=== PATIENT | male | born 1945 | race Caucasian/White ===

== ENCOUNTER 2017-07-25 12:21 | Inpatient (IN) ==
[2017-07-25] MEDS ORDERED: 0.9 % Sodium Chloride 1,000 ML IVC ONE (12:38)
[2017-07-25 13:02] LABS: Basophils % 0.6 %; Eosinophils # 0.1 K/mcL (0.0-0.6); Eosinophils % 1.1 %; Hematocrit 41.2 % (37.5-50.1); Hemoglobin 13.9 g/dL (12.9-16.9); Immature Granulocytes % 0.3 % (0-4); Lymphocytes # 1.9 K/mcL (0.6-4.6); Mean Corpuscular HGB Conc 33.7 g/dL (31.6-35.5); Mean Corpuscular Hemoglobin 32.4 pg (28.0-33.3); Mean Platelet Volume 9.5 fL (9.4-12.4); Monocytes # 0.5 K/mcL (0.0-1.3); Monocytes % 8.7 %; Neutrophils # 3.7 K/mcL (1.6-8.9); Platelet Count 193 K/mcL (140-400); Red Blood Count 4.29 M/mcL (4.19-5.50); Segmented Neutrophils % 59.3 %
[2017-07-25 13:09] LABS: INR 1.2; Prothrombin Time 12.7 Seconds (9.4-12.1)
--- NOTE | 2017-07-25 13:12 | Emergency Department Note ---
START Narrative - START START: I examined this patient and my medical decision-making was reviewed with the Resident Physician. I agree with the documented findings, disposition and treatment plan as described except to the extent set forth below. 72 yaer old male wiht HX of copd and asthma and skin cacner presents to the ED with complaints of productive cough and generalized weakness without fever. He has not been around any other sick individuls with simliar sumptoms. PAtient state that he also has a pacemaker and has been feeling lightheaded recently. Brent will have a genrealized weakness wokup ruling out primary pulmonary pathology i.e. pnuemoina and likely be admitted to medicine today.
--- NOTE | 2017-07-25 13:17 | Emergency Department Note ---
Disposition Clinical Impression: Splenic artery aneurysm COPD (chronic obstructive pulmonary disease) Qualifiers: Emphysema type: unspecified Qualified Code(s): J43.9 - CHF (congestive heart failure) Qualifiers: Congestive heart failure chronicity: unspecified congestive heart failure chronicity Qualified Code(s): I50.9 - Disposition: Admitted As Inpatient Condition: Fair General Adult HPI - General Chief complaint: ED Dizziness Stated complaint: "feel bad, dizzy" Time Seen by Provider: 07/25/17 12:28 Source: patient Mode of arrival: ambulatory Limitations: no limitations Nursing Notes Reviewed: Yes Vital Signs Reviewed: Yes - History of Present Illness HPI Narrative: Patient presenting to the ED with a 3 week history of generalized weakness, fatigue, decreased appetite, abdominal distention and pain, nausea. States he just does not feel well and is been slowly declining. Denies any chest pain or shortness of breath. No headache or fever. States that he feels very lightheaded like he is going to pass out at times. Does have some nausea and states he has not been having bowel movements like usual, but he has also not been eating. Pain Scale: 0 - Related Data Home Medications Medication Instructions Recorded Confirmed Albuterol Sulfate [Proair HFA] 1 - 2 puff IH Q4HR PRN 06/26/15 07/25/17 Acetaminophen/Diphenhydramine 1 tab PO HS PRN 07/25/17 07/25/17 [Acetaminophen Pm Caplet] Albuterol Neb [Proventil Neb] 2.5 mg IH TID PRN 07/25/17 07/25/17 Aspirin [Lo-Dose Aspirin EC] 81 mg PO DAILY 07/25/17 07/25/17 Chlordiazepoxide [Librium] 25 mg PO TID 07/25/17 07/25/17 Diclofenac Sodium [Voltaren] 50 mg PO Q8HR 07/25/17 07/25/17 Metoprolol Tartrate [Lopressor] 50 mg PO BID 07/25/17 07/25/17 Allergies Allergy/AdvReac Type Severity Reaction Status Date / Time rivaroxaban [From Xarelto] AdvReac See Verified 07/25/17 15:45 Comments All systems ED: reviewed and negative except as stated. Constitutional: Reports: weight change, other (Decreased appetite). Denies: fever Cardiovascular: Reports: syncope (Near). Denies: chest pain Gastrointestinal: Reports: nausea, constipation Musculoskeletal: Denies: back pain Neurological: Denies: headache Past Medical History - Past Medical History Attestation: Yes The following information was validated with the patient. Source: patient Medical history: Reports: asthma, COPD, hyperlipidemia, hypertension, other Surgical history: Reports: appendectomy, cholecystectomy, pacemaker/AICD Psychiatric history: Reports: no psych history - Social History Smoking Status: Former smoker Smokeless Tobacco Status: No Alcohol use: Reports: none Drug use: Reports: none Physical Exam - General Limitations: no limitations General appearance: alert, in no apparent distress - Head Head exam: atraumatic, normocephalic, normal inspection - Eye Eye exam: Present: normal appearance, PERRL, EOMI - Chest Chest inspection: Present: normal inspection, symmetric chest wall rise - Respiratory Respiratory exam: Present: normal lung sounds bilaterally - Cardiovascular Cardiovascular exam: Present: regular rate, normal rhythm, normal heart sounds - Abdominal Exam Abdominal exam: Present: soft, Non-Tender, distention. Absent: tenderness, guarding, rebound, rigidity - Extremities Exam Extremities exam: Present: normal inspection, full ROM. Absent: tenderness - Neurological Exam Neurological exam: Present: alert, oriented X3 - Psychiatric Psychiatric exam: Present: depressed, flat affect - Skin Skin exam: Present: warm, dry, intact, normal color Course Course Narrative: Patient presenting with abdominal fullness, decreased appetite, constipation. We will check labs and likely admit Vital Signs Temperature 97.6 F 07/25/17 12:24 Pulse Rate 81 07/25/17 12:24 Respiratory Rate 20 07/25/17 12:24 Blood Pressure 171/118 07/25/17 12:24 O2 Sat by Pulse Oximetry 94 07/25/17 12:24 Temperature 97.6 F 07/25/17 17:12 Pulse Rate 66 07/25/17 17:12 Respiratory Rate 16 07/25/17 17:12 Blood Pressure 181/104 07/25/17 17:12 O2 Sat by Pulse Oximetry 91 07/25/17 17:12 Oxygen Delivery Oxygen Delivery Room Air Medical Decision Making - Medical Records Medical records reviewed: Yes I reviewed the patient's medical records. - Lab Data Lab results reviewed: Yes I reviewed the patient's lab results. Result diagrams: 07/25/17 12:55 07/25/17 12:55 Lab Results 07/25/17 07/25/17 07/25/17 Range/Units 12:55 12:55 12:55 WBC 6.2 (4.3-11.1) K/mcL RBC 4.29 (4.19-5.50) M/mcL Hgb 13.9 (12.9-16.9) g/dL Hct 41.2 (37.5-50.1) % MCV 96.0 (83.0-100.0) fL MCH 32.4 (28.0-33.3) pg MCHC 33.7 (31.6-35.5) g/dL RDW 14.0 (11.5-14.5) % Plt Count 193 (140-400) K/mcL MPV 9.5 (9.4-12.4) fL Immature Gran % 0.3 (0-4) % Seg Neutrophils % 59.3 % Lymphocytes % 30.0 % Monocytes % 8.7 % Eosinophils % 1.1 % Basophils % 0.6 % Neutrophils # 3.7 (1.6-8.9) K/mcL Lymphocytes # 1.9 (0.6-4.6) K/mcL Monocytes # 0.5 (0.0-1.3) K/mcL Eosinophils # 0.1 (0.0-0.6) K/mcL Basophils # 0.0 (0.0-0.2) K/mcL PT 12.7 H (9.4-12.1) Seconds INR 1.2 Sodium 138 (136-145) mEq/L Potassium 4.3 (3.5-4.5) mEq/L Chloride 107 (98-109) mEq/L Carbon Dioxide 25 (19-29) mEq/L BUN 20 (8-26) mg/dL Creatinine 1.09 (0.72-1.25) mg/dL Est GFR ( Amer) > 60 (> 60) Est GFR (Non-Af Amer) > 60 (> 60) BUN/Creatinine Ratio 18 (6-26) Glucose 104 H (70-99) mg/dL Calculated Osmolality 289 (280-300) Calcium 9.2 (8.6-10.8) mg/dL Total Bilirubin 0.8 (0.2-1.2) mg/dL AST 43 H (5-34) Units/L ALT 89 H (0-55) Units/L Alkaline Phosphatase 90 (38-126) Units/L Troponin I (0-0.03) ng/mL B-Natriuretic Peptide (0-100) pg/mL Serum Total Protein 6.5 (6.0-8.3) g/dL Albumin 3.5 (3.5-5.0) g/dL Globulin 3.0 (2.4-3.5) g/dL Albumin/Globulin Ratio 1.2 (1.1-2.2) Lipase 15 (8-78) Units/L Urine Color (Yellow) Urine Clarity (Clear) Urine pH (5.0-8.0) pH Units Ur Specific [place] (1.010-1.025) Urine Protein (Neg-Trace) mg/dL Urine Glucose (UA) (Normal) mg/dL Urine Ketones (Negative) mg/dL Urine Blood (Negative) Urine Nitrite (Negative) Urine Bilirubin (Negative) Urine Urobilinogen (Normal) mg/dL Ur Leukocyte Esterase (Negative) Ur Culture Indicated? (NO) 07/25/17 07/25/17 07/25/17 Range/Units 12:55 12:55 13:27 WBC (4.3-11.1) K/mcL RBC (4.19-5.50) M/mcL Hgb (12.9-16.9) g/dL Hct (37.5-50.1) % MCV (83.0-100.0) fL MCH (28.0-33.3) pg MCHC (31.6-35.5) g/dL RDW (11.5-14.5) % Plt Count (140-400) K/mcL MPV (9.4-12.4) fL Immature Gran % (0-4) % Seg Neutrophils % % Lymphocytes % % Monocytes % % Eosinophils % % Basophils % % Neutrophils # (1.6-8.9) K/mcL Lymphocytes # (0.6-4.6) K/mcL Monocytes # (0.0-1.3) K/mcL Eosinophils # (0.0-0.6) K/mcL Basophils # (0.0-0.2) K/mcL PT (9.4-12.1) Seconds INR Sodium (136-145) mEq/L Potassium (3.5-4.5) mEq/L Chloride (98-109) mEq/L Carbon Dioxide (19-29) mEq/L BUN (8-26) mg/dL Creatinine (0.72-1.25) mg/dL Est GFR ( Amer) (> 60) Est GFR (Non-Af Amer) (> 60) BUN/Creatinine Ratio (6-26) Glucose (70-99) mg/dL Calculated Osmolality (280-300) Calcium (8.6-10.8) mg/dL Total Bilirubin (0.2-1.2) mg/dL AST (5-34) Units/L ALT (0-55) Units/L Alkaline Phosphatase (38-126) Units/L Troponin I 0.02 (0-0.03) ng/mL B-Natriuretic Peptide 693 H (0-100) pg/mL Serum Total Protein (6.0-8.3) g/dL Albumin (3.5-5.0) g/dL Globulin (2.4-3.5) g/dL Albumin/Globulin Ratio (1.1-2.2) Lipase (8-78) Units/L Urine Color Yellow (Yellow) Urine Clarity Clear (Clear) Urine pH 7.0 (5.0-8.0) pH Units Ur Specific [place] 1.011 (1.010-1.025) Urine Protein Negative (Neg-Trace) mg/dL Urine Glucose (UA) Normal (Normal) mg/dL Urine Ketones Negative (Negative) mg/dL Urine Blood Negative (Negative) Urine Nitrite Negative (Negative) Urine Bilirubin Negative (Negative) Urine Urobilinogen Normal (Normal) mg/dL Ur Leukocyte Esterase Negative (Negative) Ur Culture Indicated? NO (NO) - Radiology Data Radiology results reviewed: Yes I reviewed the patient's radiology results. - EKG Data EKG #1 EKG attestation: Yes I reviewed and interpreted this EKG. EKG results narrative: Paced rhythm, rate 80,. Will to 18, QRS 185, QTC 490, no acute ischemic changes
[2017-07-25 13:18] LABS: Alanine Aminotransferase 89 Units/L (0-55); Albumin 3.5 g/dL (3.5-5.0); Albumin/Globulin Ratio 1.2 (1.1-2.2); Alkaline Phosphatase 90 Units/L (38-126); Aspartate Amino Transferase 43 Units/L (5-34); BUN/Creatinine Ratio 18 (6-26); Bilirubin,Total 0.8 mg/dL (0.2-1.2); Blood Urea Nitrogen 20 mg/dL (8-26); Calcium 9.2 mg/dL (8.6-10.8); Carbon Dioxide 25 mEq/L (19-29); Chloride 107 mEq/L (98-109); Glucose 104 mg/dL (70-99); Lipase 15 Units/L (8-78); Osmolality,Calculated 289 (280-300); Potassium 4.3 mEq/L (3.5-4.5); Sodium 138 mEq/L (136-145); Total Protein 6.5 g/dL (6.0-8.3); eGFR For African Americans > 60 (> 60); eGFR For Non-African Americans > 60 (> 60)
[2017-07-25 13:35] LABS: Bilirubin,Urine Negative (Negative); Blood,Urine Negative (Negative); Clarity,Urine Clear (Clear); Color,Urine Yellow (Yellow); Glucose,Urine (UA) Normal (Normal); Ketones,Urine Negative (Negative); Leukocyte Esterase,Urine Negative (Negative); Nitrite,Urine Negative (Negative); Protein,Urine Negative (Neg-Trace); Specific Gravity,Urine 1.011 (1.010-1.025); Urobilinogen,Urine Normal (Normal)
[2017-07-25] MEDS ORDERED: Furosemide 40 MG/4 ML VIAL IVP ONE (14:27)
[2017-07-25] MEDS ORDERED: Naloxone 0.4 MG/ML INJ IVP PRN (16:59)
[2017-07-25] MEDS ORDERED: Albuterol 2.5 MG/3 ML NEBULIZER IH PRN (17:07)
[2017-07-25] MEDS ORDERED: ACETAMINOPHEN PO PRN (17:07)
[2017-07-25] MEDS ORDERED: DIPHENHYDRAMINE PO PRN (17:07)
--- NOTE | 2017-07-25 17:29 | Internal Med History&Physical ---
<Santiago Murry J - Last Filed: 07/25/17 17:46> Date of Encounter: 07/25/17 Time of Encounter: 17:26 Assessment and Plan (1) CHF (congestive heart failure) Current visit: Yes Status: Acute New onset of heart failure. Admit as inpatient as the patient will likely need a hospital stay longer than 2 midnights; requires closer monitoring of electrolytes d/t diuretics for CHF Increasing shortness of breath over the last few weeks, +1 BLE pitting edema BNP 693. Continue home antihypertensives No prior echocardiogram. Unclear whether or not systolic vs diastolic. Suspect diastolic d/t diastolic HTN Echocardiogram now Serial troponins Continuous telemetry, continuous O2 monitoring Lasix 40 mg IV push twice a day Strict I's and O's, daily weight CBC, CMP, BNP in the morning Qualifiers: Congestive heart failure chronicity: unspecified congestive heart failure chronicity Qualified Code(s): I50.9 - Heart failure, unspecified (2) COPD (chronic obstructive pulmonary disease) Current visit: Yes Status: Acute Stable, no wheezing. Continue albuterol Qualifiers: Emphysema type: unspecified Qualified Code(s): J43.9 - Emphysema, unspecified (3) HTN (hypertension) Current visit: Yes Status: Acute H/o HTN, BP currently elevated. SBP's 190's this afternoon in ED Responded to hydralazine, now SBP 150's Resume BB, add hydralazine for SBP greater than 160 Qualifiers: Hypertension type: essential hypertension Qualified Code(s): I10 - Essential (primary) hypertension (4) Splenic artery aneurysm Current visit: Yes Status: Acute Incidental findings of splenic artery aneurysm. Patient denies any abdominal pain, is hemodynamically stable. Aneurysm measured 1.[address] Squires from surgical team for further recommendations. Recommended watchful waiting as it is not emergent and the patient is currently stable. Daily smoker, cessation couseling provided d/t increased risk with smoking (5) Tobacco abuse Current visit: Yes Status: Acute Patient reports he is an everyday smoker, smoking approximately 10 cigarettes per day. Cessation counseling provided (6) DVT prophylaxis Current visit: Yes Status: Acute Heparin SC 5000 units Q12HRS Internal Medicine - H&P: HPI Chief complaint: Generalized weakness, acute CHF Admitted From: Home Plans for Post Hospital Care: Home History of present illness: Mr. Stafford is a 72 year old male with a PMH of asthma, COPD, HLD, HTN, and pacer AICD. She presents today for history of sob, generalized fatigue, decreased appetite, dyspepsia and lightheadedness. He reports that he has been very fatigued lately has had increasing shortness of breath, bilateral lower extremity swelling. Denies any chest pain, diaphoresis, syncope, fever, chills , nausea vomiting and diarrhea. His only cardiac history is hypertension and heart block. He denies ever being diagnosed with congestive heart failure. Workup in the ED revealed BNP of 693. Past Med Surg Social Fam HX - Past Medical History Medical history: asthma, COPD, hyperlipidemia, hypertension, other Psychiatric history: no psych history - Past Surgical History Surgical History: appendectomy, cholecystectomy, pacemaker/AICD - Social History Smoking Status: Former smoker Smokeless Tobacco Status: No Alcohol use: none Drug use: none - Family History Mother Hx Family Neurologic Disorders: Yes (CVA) Father Hx Family Cancer: Yes (Stomach) Brother Hx Family Cancer: Yes (Leukemia) Sister Hx Family Cancer: Yes (Pancreatic) Internal Medicine - H&P: Meds Albuterol Sulfate [Proair HFA] 1 - 2 puff IH Q4HR PRN 06/26/15 [History] Acetaminophen/Diphenhydramine [Acetaminophen Pm Caplet] 1 tab PO HS PRN [History] Albuterol Neb [Proventil Neb] 2.5 mg IH TID PRN 07/25/17 [History] Aspirin [Lo-Dose Aspirin EC] 81 mg PO DAILY 07/25/17 [History] Chlordiazepoxide [Librium] 25 mg PO TID 07/25/17 [History] Diclofenac Sodium [Voltaren] 50 mg PO Q8HR 07/25/17 [History] Metoprolol Tartrate [Lopressor] 50 mg PO BID 07/25/17 [History] 3 Allergy/AdvReac Type Severity Reaction Status Date / Time rivaroxaban [From Xarelto] AdvReac See Verified 07/25/17 15:45 Comments All Systems PM: A 10-system review of systems was performed and is negative for pertinent findings except as documented above in the HPI. - Constitutional Constitutional: fatigue, malaise, weakness, no chills, no fever(s), no falls, no lethargy, no weight loss - Cardiovascular Cardiovascular ROS IM: dyspnea, dyspnea on exertion, edema, orthopnea, no chest pain, no claudication, no diaphoresis, no irregular heart rhythm, no lightheadedness, no palpitations, no paroxysmal nocturnal dyspnea, no syncope - Respiratory Respiratory: cough (With him throughout the sputum production), dyspnea, dyspnea on exertion, no hemoptysis, no wheezing, no snoring, no stridor, no pain on inspiration, no chest congestion, no change in phlegm color, no pain with cough - Gastrointestinal Gastrointestinal: dyspepsia, nausea (Intermittent), no abdominal pain, no diarrhea, no vomiting - Genitourinary Genitourinary ROS male: no dysuria, no flank pain - Musculoskeletal Musculoskeletal ROS IM: no numbness, no tingling - Integumentary Integumentary IM: no rash, no unusual bruising - Neurological Neurological ROS: no confusion, no convulsions, no focal weakness, no numbness, no tingling, no tremor(s) - Constitutional Vitals: Temp Pulse Resp BP Pulse Ox 97.6 F 66 16 181/104 91 07/25/17 17:12 07/25/17 17:12 07/25/17 17:12 07/25/17 17:12 07/25/17 17:12 General appearance: Present: cooperative, A&O X 3, no acute distress, answers questions appropriately - Respiratory Respiratory exam: Present: decreased breath sounds. Absent: accessory muscle use, respiratory distress, rhonchi, wheezes - Cardiovascular Cardiovascular exam: Present: RRR, +S1, +S2. Absent: diastolic murmur, gallop, JVD, rubs, systolic murmur, tachycardia - GI/Abdominal GI/Abdominal exam: Present: normal bowel sounds, soft, no peritoneal signs. Absent: distended, tenderness - Extremities Exam Extremities exam: Present: normal capillary refill, normal inspection, pedal edema (Bilateral lower extremity), warm, radial pulses palpable and symmetrical. Absent: cyanotic, tenderness - Skin Skin exam: Present: dry, intact Internal Med - H&P Results - Labs CBC & Chem 7: 07/25/17 12:55 07/25/17 12:55 - EKG Data -: EKG Interpreted by Myself - EKG Data EKG comments: 07/25/17 17:34 Paced rhythm - Diagnostic Studies CT scan - head Status: image reviewed by me Additional comments: No acute intracranial abnormalities, only revealing atrophic chronic small vessel ischemic changes CT scan - abdomen Status: image reviewed by me Additional comments: CT abdomen and pelvis reveals 1.3 cm splenic artery aneurysm and enlarged prostate Chest x-ray Status: image reviewed by me Additional comments: No acute pulmonary abnormalities and mild bullous changes however no changes from prior study <Eshter Andrews - Last Filed: 07/25/17 18:49> Date of Encounter: 07/25/17 Internal Medicine - H&P: HPI History of present illness: Mr. Stafford is a 72 year old male All Systems PM: A 10-system review of systems was performed and is negative for pertinent findings except as documented above in the HPI. - Constitutional Vitals: Temp Pulse Resp BP Pulse Ox 97.6 F 66 16 181/104 91 07/25/17 17:12 07/25/17 17:12 07/25/17 17:12 07/25/17 17:12 07/25/17 17:12 Internal Med - H&P Results - Labs CBC & Chem 7: 07/25/17 12:55 07/25/17 12:55 Labs: Cardiac Enzymes 07/25/17 Range/Units 18:06 Troponin I 0.02 (0-0.03) ng/mL - Attending Attestation I have personally performed a face to face evaluation on this patient. I have reviewed and agree with the care plan. History and Exam by me shows: Mr. Stafford is a 72 year old male with a PMH of asthma, COPD, HLD, HTN, and sick sinus syndrome with s/p pacemaker presented to ER today with worsening SOB / Orthopnea and b/l LE edema. Gen: A, A, O x3 Chest: Diminished BS b/l basal regions, No crackles no rales Heart : S1 S2 + RRR No murmurs Ext: b/l LE edema 1+ a/p 1. new onset CHF 2 D Echo IV diuresis Resumed home meds on telemetry monitor check serial trop
[2017-07-25] MEDS: *HR* Heparin 5,000 UNIT/ML VIAL SQ SCH (17:37)
[2017-07-25] MEDS: Furosemide 40 MG/4 ML VIAL IVP SCH (20:19)
[2017-07-26 01:17] LABS: Basophils % 0.5 %; Eosinophils # 0.1 K/mcL (0.0-0.6); Hematocrit 43.7 % (37.5-50.1); Immature Granulocytes % 0.5 % (0-4); Lymphocytes # 2.1 K/mcL (0.6-4.6); Lymphocytes % 26.2 %; Mean Corpuscular HGB Conc 34.3 g/dL (31.6-35.5); Mean Corpuscular Hemoglobin 32.6 pg (28.0-33.3); Mean Platelet Volume 10.3 fL (9.4-12.4); Monocytes # 0.7 K/mcL (0.0-1.3); Neutrophils # 5.2 K/mcL (1.6-8.9); Platelet Count 200 K/mcL (140-400); Red Cell Distribution Width 14.1 % (11.5-14.5); Segmented Neutrophils % 63.8 %
[2017-07-26 01:32] LABS: Alanine Aminotransferase 117 Units/L (0-55); Albumin/Globulin Ratio 1.3 (1.1-2.2); Alkaline Phosphatase 105 Units/L (38-126); Aspartate Amino Transferase 55 Units/L (5-34); BUN/Creatinine Ratio 15 (6-26); Bilirubin,Total 1.2 mg/dL (0.2-1.2); Blood Urea Nitrogen 18 mg/dL (8-26); Calcium 9.8 mg/dL (8.6-10.8); Carbon Dioxide 26 mEq/L (19-29); Chloride 101 mEq/L (98-109); Globulin 3.1 g/dL (2.4-3.5); Glucose 86 mg/dL (70-99); Osmolality,Calculated 291 (280-300); Sodium 140 mEq/L (136-145); Total Protein 7.1 g/dL (6.0-8.3); eGFR For African Americans > 60 (> 60); eGFR For Non-African Americans 58 (> 60)
[2017-07-26 01:46] LABS: Potassium 3.4 mEq/L (3.5-4.5)
[2017-07-26] MEDS: *HR* Heparin 5,000 UNIT/ML VIAL SQ SCH ×2 (05:37→17:39)
[2017-07-26] MEDS: Aspirin Enteric Coated 81 MG Tablet PO SCH (08:45)
[2017-07-26] MEDS: Furosemide 40 MG/4 ML VIAL IVP SCH ×2 (08:46→17:38)
--- NOTE | 2017-07-26 13:49 | Internal Med Progress Note ---
Date of Encounter: 07/26/17 Time of Encounter: 13:00 - Assessment and plan (1) Acute systolic (congestive) heart failure Current Visit: Yes Status: Acute Assessment and plan: His 2 D Echo from 07/10/17 showed LVEF 40%, Mild -moderate LV diastolic dysfunction No need to repeat another Echo Cont IV Lasix for another day his symptoms started improving slowly Cont Metoprolol, ASA Will check FLP in AM normal troponin so far (2) COPD (chronic obstructive pulmonary disease) Current Visit: Yes Status: Acute Assessment and plan: Not in exacerbation Resumed home regimen Qualifiers: Emphysema type: unspecified Qualified Code(s): J43.9 - Emphysema, unspecified (3) HLD (hyperlipidemia) Current Visit: Yes Status: Acute Assessment and plan: will check FLP in AM Qualifiers: Qualified Code(s): E78.5 - Hyperlipidemia, unspecified (4) HTN (hypertension) Current Visit: Yes Status: Acute Assessment and plan: Slightly elevated will add Losartan Qualifiers: Hypertension type: essential hypertension Qualified Code(s): I10 - Essential (primary) hypertension (5) Splenic artery aneurysm Current Visit: Yes Status: Acute Assessment and plan: incidental finding No acute interventions needed counseled to quit smoking (6) Tobacco abuse Current Visit: Yes Status: Acute Assessment and plan: counseled to quit smoking on nicotine patch - Subjective Interval history: Mr. Stafford is a 72 year old male with a PMH of asthma, COPD, HLD, HTN, and sick sinus syndrome with s/p pacemaker presented to ER today with worsening SOB / Orthopnea and b/l LE edema. He does smokes 1/2PPD. Denied any CP. He was admitted in the hospital and started him on IV Lasix. He stated he is feeling little better today. - Constitutional Vitals: Temp Pulse Resp BP Pulse Ox 98.1 F 68 16 164/99 93 07/26/17 11:18 07/26/17 11:18 07/26/17 11:18 07/26/17 11:18 07/26/17 11:18 General appearance: Present: cooperative, A&O X 3, no acute distress, answers questions appropriately - Head Head exam: Present: atraumatic, normal inspection - Neck Neck exam general surgery: Present: supple - Respiratory Respiratory exam: Present: decreased breath sounds. Absent: rales, respiratory distress, rhonchi, wheezes - Cardiovascular Cardiovascular exam: Present: RRR, +S1, +S2. Absent: systolic murmur, tachycardia - GI/Abdominal GI/Abdominal exam: Present: soft. Absent: rebound, rigid - Extremities Exam Extremities exam: Present: pedal edema (1+..Improving). Absent: calf tenderness , tenderness - Back Exam Back exam: Absent: CVA tenderness (L), CVA tenderness (R) - Neurological Exam Neurological exam: Present: alert, oriented X3 - Psychiatric Psychiatric exam: Present: normal affect, normal mood Internal Medicine: Result - Labs CBC & Chem 7: 07/26/17 00:54 07/26/17 00:54 Labs: Short CBC 07/26/17 Range/Units 00:54 WBC 8.1 (4.3-11.1) K/mcL Hgb 15.0 (12.9-16.9) g/dL Hct 43.7 (37.5-50.1) % Plt Count 200 (140-400) K/mcL Neutrophils # 5.2 (1.6-8.9) K/mcL BMP 07/26/17 00:54 Sodium 140 Potassium 3.4 L Chloride 101 Carbon Dioxide 26 BUN 18 Creatinine 1.23 Glucose 86 Calcium 9.8 Cardiac Enzymes 07/25/17 07/26/17 Range/Units 18:06 00:54 Troponin I 0.02 0.04 H* (0-0.03) ng/mL Liver Function 07/26/17 Range/Units 00:54 Total Bilirubin 1.2 (0.2-1.2) mg/dL AST 55 H (5-34) Units/L ALT 117 H (0-55) Units/L Alkaline Phosphatase 105 (38-126) Units/L Albumin 4.0 (3.5-5.0) g/dL - ABG Interpretation ABG results: PT/INR, D-dimer PT 12.7 Seconds (9.4-12.1) H 07/25/17 12:55 Consult Discharge Plan - Plan Referrals: Cathy Hurst, [employer] [Primary Care Provider] -
--- NOTE | 2017-07-26 17:46 | Electrocardiograph Report ---
[place] [id number] Test Date: 2017-07-25 Pat Name: Иван Rivera Department: 104 Room: 3B22 Gender: M Administrative Dietitian: : 1945 Requested By: Brian Miller Order Number: [id number] Reading MD: Yolanda Bautista Measurements Intervals [place] Rate: 80 P: 60 IN: 218 QRS: -78 QRSD: 185 T: 100 QT: 454 QTc: 490 Interpretive Statements ELECTRONIC VENTRICULAR PACEMAKER ABNORMAL RHYTHM ECG Electronically Signed On 07-26-2017 17:44:21 EST by Yolanda Bautista
[2017-07-27 04:50] LABS: BUN/Creatinine Ratio 17 (6-26); Blood Urea Nitrogen 22 mg/dL (8-26); Calcium 9.5 mg/dL (8.6-10.8); Carbon Dioxide 28 mEq/L (19-29); Chloride 98 mEq/L (98-109); Chol/HDL Ratio 2.3 (0-4.9); Cholesterol 152 mg/dL (< 200); Glucose 112 mg/dL (70-99); HDL Cholesterol 67 mg/dL (40-59); LDL Cholesterol,Calculated 69 mg/dL (0-99); Osmolality,Calculated 290 (280-300); Sodium 138 mEq/L (136-145); Triglycerides 79 mg/dL (< 150); eGFR For African Americans > 60 (> 60); eGFR For Non-African Americans 53 (> 60)
[2017-07-27] MEDS: *HR* Heparin 5,000 UNIT/ML VIAL SQ SCH (05:30)
[2017-07-27] MEDS: Furosemide 40 MG/4 ML VIAL IVP SCH (08:22)
[2017-07-27] MEDS: Aspirin Enteric Coated 81 MG Tablet PO SCH (08:22)
[2017-07-27 11:29] VITALS: BP 148/92
--- NOTE | 2017-07-27 14:10 | Event Note ---
Date of Encounter: 07/27/17 Time of Encounter: 14:02 - Cardiology Event Note Asked to comment on anticoagulation recommendations per hospitalist. Pt seen by Dr. Paresh Mariee 06/26/17. Known A-Fib, recommended pt go back on Xarelto for anticoagulation. Apparently pt had hx of hemoptysis on xarelto. Was switched to Eliquis, but did not take due to rebollar. Was recommended he go back on Xarelto, which he did and hemoptysis recurred. [id number] (age, htn). Discussed with Dr. Paresh Mariee. Even on anticoagulation, pt should not be having hemoptysis. Recommend pt follow-up with pulmonology to determine any underlying cause. Until he has a pulm eval, recommend against full anticoagulation. Continue ASA only for now. Will coordinate outpt follow-up with Dr. Paresh Mariee. Cardiology signing off. Reconsult PRN.
--- NOTE | 2017-07-27 14:19 | Discharge Summary ---
Date of Encounter: 07/27/17 Time of Encounter: 14:17 - Discharge Diagnosis (1) Acute systolic (congestive) heart failure Priority: Primary Status: Acute (2) COPD (chronic obstructive pulmonary disease) Priority: Secondary Status: Acute Qualifiers: Emphysema type: unspecified Qualified Code(s): J43.9 - Emphysema, unspecified (3) HLD (hyperlipidemia) Priority: Secondary Status: Acute Qualifiers: Qualified Code(s): E78.5 - Hyperlipidemia, unspecified (4) HTN (hypertension) Priority: Secondary Status: Acute Qualifiers: Hypertension type: essential hypertension Qualified Code(s): I10 - Essential (primary) hypertension (5) Splenic artery aneurysm Priority: Secondary Status: Acute (6) Tobacco abuse Priority: Secondary Status: Acute (7) Paroxysmal atrial fibrillation Priority: Secondary Status: Chronic - Discharge Medications Prescriptions: Furosemide [Lasix] 20 mg PO BID #60 tablet Potassium Chloride [K-Tab ER] 20 meq PO DAILY #30 tablet.er Home Medications: Albuterol Sulfate [Albuterol Inhaler] 1 - 2 puff IH Q4HR PRN 06/26/15 [History] Acetaminophen/Diphenhydramine [Acetaminophen Pm Caplet] 1 tab PO HS PRN [History] Albuterol Neb [Proventil Neb] 2.5 mg IH TID PRN 07/25/17 [History] Aspirin [Lo-Dose Aspirin EC] 81 mg PO DAILY 07/25/17 [History] Chlordiazepoxide [Librium] 25 mg PO TID 07/25/17 [History] Metoprolol Tartrate [Lopressor] 50 mg PO BID 07/25/17 [History] Furosemide [Lasix] 20 mg PO BID #60 tablet 07/27/17 [Rx] Nicotine Patch [Nicoderm] 14 mg TD DAILY #30 patch.td24 07/27/17 [Rx] Potassium Chloride [K-Tab ER] 20 meq PO DAILY #30 tablet.er 07/27/17 [Rx] Allergies/Adverse Reactions: 3 Allergy/AdvReac Type Severity Reaction Status Date / Time rivaroxaban [From Xarelto] AdvReac See Verified 07/25/17 15:45 Comments Procedures/tests Complete & Pending: Procedures Performed prior 72 hours Category Date Time Status EV limited echocardiogram Routine Y 07/26/17 16:56 Completed Date of admission: 07/25/17 16:59 Primary care physician: Cathy Hurst CNP - Patient Status Disposition: Home, Self-Care Condition: Good Overall status at discharge: patient is back to baseline - Discharge Instructions Follow Up With: Cathy Hurst CNP [Primary Care Provider] - Paresh Mariee MD [Partnered Physician] - - Diet and Activity Activity: increase activity as tolerated Diet: low salt diet Hospital course: Mr. Stafford is a 72 year old male with a PMH of asthma, COPD, HLD, HTN, and sick sinus syndrome with s/p pacemaker presented to ER today with worsening SOB / Orthopnea and b/l LE edema. He does smokes 1/2PPD. Denied any CP. He was admitted in the hospital and started him on IV Lasix. His sysmptoms started improving slowly. Today he is breathing comfortably on RA. Denied any CP / SOB. He did mention that he has paroxysmal A fib, for which Medicine Man Dr. Mariee placed him on Coumadin before, but pt did not wanted to take Coumadin so they switched him to Xarelto. Apparently he had hemoptysis with Xarelto, so he stopped taking it. However pt mentioned that Dr. Mariee wants him to start on Eliquis. Just spoke to Dr. mariee's FACILITY ENGINEER, who suggested as per Dr. mariee, hold of any anti coagulation now, follow up with them as an out pt, who is going to initiate pulmonary work up for his Hemoptysis. So will d/c him home in stable condition. Recommend to f/u with Dr. mariee and PCP as an out pt. Also recommend to go for f/u BMP in 3 days since his cr slightly elevated with aggressive diuresis.. - Time Spent with Patient Total time spent providing and/or coordinating discharge services: - Constitutional Vitals: Temp Pulse Resp BP Pulse Ox 97.3 F L 68 16 148/92 91 07/27/17 11:26 07/27/17 11:26 07/27/17 11:26 07/27/17 11:26 07/27/17 11:26 General appearance: Present: cooperative, A&O X 3, no acute distress, answers questions appropriately - Head Head exam: Present: atraumatic, normal inspection - Neck Neck exam general surgery: Present: supple - Respiratory Respiratory exam: Present: decreased breath sounds. Absent: rales, respiratory distress, rhonchi, wheezes - Cardiovascular Cardiovascular exam: Present: RRR, +S1, +S2. Absent: systolic murmur - GI/Abdominal GI/Abdominal exam: Present: normal bowel sounds, soft. Absent: rebound, rigid, tenderness - Extremities Exam Extremities exam: Present: pedal edema (trace.. improved). Absent: calf tenderness, tenderness - Back Exam Back exam: Absent: CVA tenderness (L), CVA tenderness (R)
== END 2017-07-27 15:25 | disposition home or self-care (01) | DRG 293 ==
LOC: 3BNU 12:21 → EMEROO 12:21 → 3BNU 17:01
PROVIDERS: ADMIT Nurse Practitioner; ATTEND Internal Medicine

== ENCOUNTER 2018-02-01 21:02 | Inpatient (IN) ==
[2018-02-01 21:30] LABS: Basophils % 0.4 %; Eosinophils # 0.1 K/mcL (0.0-0.6); Eosinophils % 1.1 %; Hematocrit 44.7 % (37.5-50.1); Hemoglobin 15.4 g/dL (12.9-16.9); Immature Granulocytes % 0.3 % (0-4); Lymphocytes # 2.3 K/mcL (0.6-4.6); Lymphocytes % 31.7 %; Mean Corpuscular HGB Conc 34.5 g/dL (31.6-35.5); Mean Corpuscular Hemoglobin 33.8 pg (28.0-33.3); Mean Corpuscular Volume 98.2 fL (83.0-100.0); Mean Platelet Volume 9.7 fL (9.4-12.4); Monocytes # 0.5 K/mcL (0.0-1.3); Monocytes % 7.6 %; Neutrophils # 4.2 K/mcL (1.6-8.9); Platelet Count 176 K/mcL (140-400); Red Blood Count 4.55 M/mcL (4.19-5.50); Segmented Neutrophils % 58.9 %
[2018-02-01 21:57] LABS: BUN/Creatinine Ratio 14 (6-26); Blood Urea Nitrogen 20 mg/dL (8-23); Calcium 9.8 mg/dL (8.6-10.3); Carbon Dioxide 33 mEq/L (23-29); Chloride 98 mEq/L (98-107); Glucose 103 mg/dL (70-105); Osmolality,Calculated 287 (280-300); Potassium 3.8 mEq/L (3.5-5.1); Sodium 137 mEq/L (136-145); Troponin I < 0.03 ng/mL (< 0.04); eGFR For African Americans 59 (> 60); eGFR For Non-African Americans 49 (> 60)
--- NOTE | 2018-02-01 22:09 | Emergency Department Note ---
Disposition Clinical Impression: Dyspnea on exertion, Lower extremity edema Acute exacerbation of CHF (congestive heart failure) Qualifiers: Heart failure type: unspecified Qualified Code(s): I50.9 - Heart failure, unspecified CKD (chronic kidney disease) Qualifiers: Qualified Code(s): N18.9 - Disposition: Admitted As Inpatient Condition: Good General Adult HPI - General Chief complaint: ED Shortness of Breath/Dyspnea Stated complaint: LAURA/bilateral lower edema Time Seen by Provider: 02/01/18 22:01 Source: patient Limitations: no limitations Nursing Notes Reviewed: Yes Vital Signs Reviewed: Yes - History of Present Illness HPI Narrative: 72-year-old male with a past medical history of atrial fibrillation on Eloquis, HTN, HLD, CHF Echo 6 months ago: * LVEF 55%. * Normal LV chamber size and function. * Mild concentric left ventricular hypertrophy. * Atypical septal motion consistent with paced rhythm. Right Ventricle * Normal right ventricular structure and function. He reports a few days of worsening lower extremity edema, fullness in his abdomen, shortness of breath with exertion. He denies any nausea or vomiting. He denies any chest pain. He reports this is happened him before where he fills up with fluid due to his congestive heart failure. He denies having a fever. He does wear oxygen intermittently at home. He does take Lasix. He denies difficulty with urination. Radiation: non-radiation Pain Scale: 0 Consistency: constant Improves with: nothing Worsens with: other (exertion) Associated symptoms: Reports: denies other symptoms Treatments Prior to Arrival: none - Related Data Home Medications Medication Instructions Recorded Confirmed Albuterol Sulfate [Albuterol 1 - 2 puff IH Q4HR PRN 06/26/15 02/02/18 Inhaler] Albuterol Neb [Proventil Neb] 2.5 mg IH TID PRN 07/25/17 02/02/18 Chlordiazepoxide [Librium] 25 mg PO TID 07/25/17 02/02/18 Metoprolol Tartrate [Lopressor] 50 mg PO BID 07/25/17 02/02/18 Apixaban [Eliquis] 5 mg PO BID 02/02/18 02/02/18 Furosemide [Lasix] 20 mg PO DAILY 02/02/18 02/02/18 Trazodone HCl 50 mg PO HS 02/02/18 02/02/18 Previous Rx's Medication Instructions Recorded Potassium Chloride [K-Tab ER] 20 meq PO DAILY #30 tablet.er 07/27/17 Allergies Allergy/AdvReac Type Severity Reaction Status Date / Time rivaroxaban [From Xarelto] AdvReac See Verified 02/01/18 21:05 Comments All systems ED: reviewed and negative except as stated. Constitutional: Denies: fever ENT ED: Denies: throat pain Cardiovascular: Denies: chest pain, palpitations Respiratory: Reports: dyspnea Gastrointestinal: Denies: abdominal pain, nausea, vomiting Musculoskeletal: Denies: back pain Integumentary: Denies: rash Past Medical History - Past Medical History Medical history: Reports: asthma, COPD, hyperlipidemia, hypertension, other Surgical history: Reports: appendectomy, cholecystectomy, pacemaker/AICD Psychiatric history: Reports: no psych history - Social History Smoking Status: Former smoker Smokeless Tobacco Status: No Alcohol use: Reports: none Drug use: Reports: none Physical Exam - General Limitations: no limitations General appearance: alert - Head Head exam: atraumatic - Eye Eye exam: Present: normal appearance, PERRL - ENT ENT exam: normal exam - Neck Neck exam: Present: normal inspection - Chest Chest inspection: Present: normal inspection - Respiratory Respiratory exam: Present: other (rhonchi on exam, no distress) - Cardiovascular Cardiovascular exam: Present: regular rate, normal rhythm - Abdominal Exam Abdominal exam: Present: soft, Non-Tender - Extremities Exam Extremities exam: Present: normal inspection (3+ bilateral LE edema) - Back Exam Back exam: Present: normal inspection - Neurological Exam Neurological exam: Present: alert, oriented X3 - Psychiatric Psychiatric exam: Present: normal affect, normal mood - Skin Skin exam: Present: warm, dry Course Course Narrative: Lower extremity edema with rhonchi, elevated BNP and history of CHF. Symptoms of dyspnea with exertion and lower extremity edema likely secondary to CHF. Ordered 60 mg of Lasix. EKG does not show any acute changes. Troponin is negative. Chest x-ray does not show any acute abnormality. We will admit for congestive heart failure exacerbation. He is requiring 1 L of oxygen and he is not on oxygen at home. Accepted by the hospitalists Vital Signs Temperature 97.6 F 02/01/18 21:06 Pulse Rate 68 02/01/18 21:06 Respiratory Rate 16 02/01/18 21:06 Blood Pressure 134/85 02/01/18 21:06 O2 Sat by Pulse Oximetry 92 02/01/18 21:06 Temperature 97.6 F 02/02/18 02:09 Pulse Rate 80 02/02/18 02:09 Respiratory Rate 16 02/02/18 02:09 Blood Pressure 101/66 02/02/18 02:09 O2 Sat by Pulse Oximetry 96 02/02/18 02:09 Oxygen Delivery Oxygen Delivery Nasal Cannula Medical Decision Making - Medical Records Medical records reviewed: Yes I reviewed the patient's medical records. - Lab Data Lab results reviewed: Yes I reviewed the patient's lab results. Result diagrams: 02/01/18 21:16 02/01/18 21:16 Lab Results 02/01/18 02/01/18 02/01/18 Range/Units 21:16 21:16 21:16 WBC 7.1 (4.3-11.1) K/mcL RBC 4.55 (4.19-5.50) M/mcL Hgb 15.4 (12.9-16.9) g/dL Hct 44.7 (37.5-50.1) % MCV 98.2 (83.0-100.0) fL MCH 33.8 H (28.0-33.3) pg MCHC 34.5 (31.6-35.5) g/dL RDW 13.0 (11.5-14.5) % Plt Count 176 (140-400) K/mcL MPV 9.7 (9.4-12.4) fL Immature Gran % 0.3 (0-4) % Seg Neutrophils % 58.9 % Lymphocytes % 31.7 % Monocytes % 7.6 % Eosinophils % 1.1 % Basophils % 0.4 % Neutrophils # 4.2 (1.6-8.9) K/mcL Lymphocytes # 2.3 (0.6-4.6) K/mcL Monocytes # 0.5 (0.0-1.3) K/mcL Eosinophils # 0.1 (0.0-0.6) K/mcL Basophils # 0.0 (0.0-0.2) K/mcL Sodium 137 (136-145) mEq/L Potassium 3.8 (3.5-5.1) mEq/L Chloride 98 (98-107) mEq/L Carbon Dioxide 33 H (23-29) mEq/L BUN 20 (8-23) mg/dL Creatinine 1.42 H (0.70-1.30) mg/dL Est GFR ( Amer) 59 L (> 60) Est GFR (Non-Af Amer) 49 L (> 60) BUN/Creatinine Ratio 14 (6-26) Glucose 103 (70-105) mg/dL Calculated Osmolality 287 (280-300) Lactic Acid 1.3 (0.5-2.2) mmol/L Calcium 9.8 (8.6-10.3) mg/dL Troponin I < 0.03 (< 0.04) ng/mL B-Natriuretic Peptide (Less than 100) pg/mL Urine Color (Yellow) Urine Clarity (Clear) Urine pH (5.0-8.0) pH Units Ur Specific Cascade (1.010-1.025) Urine Protein (Neg-Trace) mg/dL Urine Glucose (UA) (Normal) mg/dL Urine Ketones (Negative) mg/dL Urine Blood (Negative) Urine Nitrite (Negative) Urine Bilirubin (Negative) Urine Urobilinogen (Normal) mg/dL Ur Leukocyte Esterase (Negative) Ur Culture Indicated? (NO) 02/01/18 02/01/18 Range/Units 21:16 22:40 WBC (4.3-11.1) K/mcL RBC (4.19-5.50) M/mcL Hgb (12.9-16.9) g/dL Hct (37.5-50.1) % MCV (83.0-100.0) fL MCH (28.0-33.3) pg MCHC (31.6-35.5) g/dL RDW (11.5-14.5) % Plt Count (140-400) K/mcL MPV (9.4-12.4) fL Immature Gran % (0-4) % Seg Neutrophils % % Lymphocytes % % Monocytes % % Eosinophils % % Basophils % % Neutrophils # (1.6-8.9) K/mcL Lymphocytes # (0.6-4.6) K/mcL Monocytes # (0.0-1.3) K/mcL Eosinophils # (0.0-0.6) K/mcL Basophils # (0.0-0.2) K/mcL Sodium (136-145) mEq/L Potassium (3.5-5.1) mEq/L Chloride (98-107) mEq/L Carbon Dioxide (23-29) mEq/L BUN (8-23) mg/dL Creatinine (0.70-1.30) mg/dL Est GFR ( Amer) (> 60) Est GFR (Non-Af Amer) (> 60) BUN/Creatinine Ratio (6-26) Glucose (70-105) mg/dL Calculated Osmolality (280-300) Lactic Acid (0.5-2.2) mmol/L Calcium (8.6-10.3) mg/dL Troponin I (< 0.04) ng/mL B-Natriuretic Peptide 281 H (Less than 100) pg/mL Urine Color Yellow (Yellow) Urine Clarity Clear (Clear) Urine pH 6.5 (5.0-8.0) pH Units Ur Specific Cascade 1.017 (1.010-1.025) Urine Protein Negative (Neg-Trace) mg/dL Urine Glucose (UA) Normal (Normal) mg/dL Urine Ketones Negative (Negative) mg/dL Urine Blood Negative (Negative) Urine Nitrite Negative (Negative) Urine Bilirubin Negative (Negative) Urine Urobilinogen Normal (Normal) mg/dL Ur Leukocyte Esterase Negative (Negative) Ur Culture Indicated? NO (NO) - Radiology Data Radiology results reviewed: Yes I reviewed the patient's radiology results. - EKG Data EKG #1 EKG attestation: Yes I reviewed and interpreted this EKG. Interpretation: other (ventricular pacemaker. Rate 61. No scarbossa criteria.) Attestation Statement - Attestation Attestation: I examined this patient and my medical decision-making was reviewed with the Resident Physician. I agree with the documented findings, disposition and treatment plan as described except to the extent set forth below. Findings consistent with dyspnea. Congestive heart failure. We will admit for diuresis.
[2018-02-01 22:47] LABS: Bilirubin,Urine Negative (Negative); Blood,Urine Negative (Negative); Clarity,Urine Clear (Clear); Color,Urine Yellow (Yellow); Glucose,Urine (UA) Normal (Normal); Ketones,Urine Negative (Negative); Leukocyte Esterase,Urine Negative (Negative); Nitrite,Urine Negative (Negative); PH,Urine 6.5 pH Units (5.0-8.0); Protein,Urine Negative (Neg-Trace); Specific Gravity,Urine 1.017 (1.010-1.025); Urobilinogen,Urine Normal (Normal)
[2018-02-01] MEDS ORDERED: Furosemide 40 MG/4 ML VIAL IVP ONE (23:31)
--- NOTE | 2018-02-02 | Internal Med History&Physical ---
Date of Encounter: 02/02/18 Time of Encounter: 01:00 Internal Medicine - H&P: HPI Chief complaint: bilateral lower extremity swelling and SOB Admitted From: Emergency Dept Plans for Post Hospital Care: Home History of present illness: Mr. Stafford is a 72 year old male with past medical history of COPD, hyperlipidemia, hypertension, CHF with preserved ejection fraction, splenic artery aneurysm, CK D presents to the ED with complaints of worsening lower extremity edema, shortness of breath with exertion. The patient states that this has been going on for the last 5 days. But today swelling and shortness of breath continued to worsen and he decided to come to the ED. He admits to chills, but denies fever, nausea, vomiting. He reports that this episode is similar to previous episode of CHF exacerbation. Patient wears oxygen intermittently at home. He reports that he is compliant with his Lasix and all other medications at home. He denies any difficulty with urination. He denies chest pain, abdominal pain, headaches, diarrhea, constipation, purulent sputum. Patient states that his diet continues to be heavy on salt. No further acute complaints. Past Med Surg Social Fam HX - Past Medical History Medical history: asthma, COPD, hyperlipidemia, hypertension, other Psychiatric history: no psych history - Past Surgical History Surgical History: appendectomy, cholecystectomy, pacemaker/AICD - Social History Smoking Status: Former smoker Smokeless Tobacco Status: No Alcohol use: none Drug use: none - Family History Mother Hx Family Neurologic Disorders: Yes (CVA) Father Hx Family Cancer: Yes (Stomach) Brother Hx Family Cancer: Yes (Leukemia) Sister Hx Family Cancer: Yes (Pancreatic) Internal Medicine - H&P: Meds Albuterol Sulfate [Albuterol Inhaler] 1 - 2 puff IH Q4HR PRN 06/26/15 [History] Albuterol Neb [Proventil Neb] 2.5 mg IH TID PRN 07/25/17 [History] Chlordiazepoxide [Librium] 25 mg PO TID 07/25/17 [History] Metoprolol Tartrate [Lopressor] 50 mg PO BID 07/25/17 [History] Potassium Chloride [K-Tab ER] 20 meq PO DAILY #30 tablet.er 07/27/17 [Rx] Apixaban [Eliquis] 5 mg PO BID 02/02/18 [History] Furosemide [Lasix] 20 mg PO DAILY 02/02/18 [History] Trazodone HCl 50 mg PO HS 02/02/18 [History] 3 Allergy/AdvReac Type Severity Reaction Status Date / Time rivaroxaban [From Xarelto] AdvReac See Verified 02/01/18 21:05 Comments All Systems PM: A 10-system review of systems was performed and is negative for pertinent findings except as documented above in the HPI. - Constitutional Constitutional: as per HPI, chills, no fever(s), no night sweats - EENT Eyes: no change in vision, no discharge, no pain, no photophobia Ears: no ear discharge, no ear pain, no tinnitus Nose, mouth and throat: no dysphagia, no nasal discharge, no neck pain, no sore throat - Cardiovascular Cardiovascular ROS IM: no chest pain, no diaphoresis, no dyspnea, no lightheadedness, no palpitations, no syncope - Respiratory Respiratory: cough, wheezing, no dyspnea, no excessive phlegm production - Gastrointestinal Gastrointestinal: no abdominal pain, no diarrhea, no hematemesis, no hematochezia, no melena, no nausea, no vomiting - Genitourinary Genitourinary ROS male: no difficulty urinating, no dysuria, no flank pain - Musculoskeletal Musculoskeletal ROS IM: no numbness, no tingling Additional comments: Swelling of bilateral lower extremities. - Integumentary Integumentary IM: no rash, no unusual bruising - Neurological Neurological ROS: no confusion, no convulsions, no focal weakness, no numbness, no tingling, no tremor(s) - Hematologic/Lymphatic Hematologic/Lymphatic: no easy bruising - Constitutional Vitals: Temp Pulse Resp BP Pulse Ox 97.6 F 59 18 115/62 98 02/01/18 21:06 02/01/18 22:35 02/01/18 22:35 02/01/18 22:35 02/01/18 22:35 General appearance: Present: A&O X 3, no acute distress, answers questions appropriately - Head Head exam: Present: atraumatic, normocephalic - Eye Eye exam: Present: EOMI, conjuntiva pink, sclera anicteric - Neck Neck exam general surgery: Present: supple, trachea midline. Absent: lymphadenopathy - Respiratory Respiratory exam: Present: wheezes. Absent: accessory muscle use, rales, rhonchi - Cardiovascular Cardiovascular exam: Present: RRR, +S1, +S2. Absent: diastolic murmur, gallop, rubs, systolic murmur - GI/Abdominal GI/Abdominal exam: Present: normal bowel sounds, soft, no peritoneal signs. Absent: distended, tenderness - Extremities Exam Extremities exam: Present: pedal edema, warm, radial pulses palpable and symmetrical. Absent: calf tenderness, cyanotic - Neurological Exam Neurological exam: Present: CN II-XII intact, oriented X3, no focal deficits. Absent: pronater drift, facial droop, speech deficit - Skin Skin exam: Present: dry, intact Internal Med - H&P Results - Labs CBC & Chem 7: 02/01/18 21:16 02/01/18 21:16 - Assessment and plan (1) Acute exacerbation of CHF (congestive heart failure) Current Visit: Yes Status: Acute Assessment and plan: Last echo demonstrated ejection fraction 55% with no wall abnormalities on 2016. However, due to patient's presenting symptoms of acute CHF exacerbation, limited echo is currently pending for further evaluation. Continue the patient on 40 mg IV twice a day of Lasix. Patient is educated on importance of low- salt diet. Start cardiac and renal diet. 60 mg IV Lasix was given at the emergency room, which might explain the acute elevation of creatinine. Continue with IVF maintenance dose. Monitor kidney function with a.m. labs. Nebulizers as needed. Reconciled appropriate home medications. Qualifiers: Heart failure type: unspecified Qualified Code(s): I50.9 - Heart failure, unspecified (2) Lower extremity edema Current Visit: Yes Status: Acute Assessment and plan: Lower extremity edema secondary to CHF exacerbation. Treat per above (3) COPD (chronic obstructive pulmonary disease) Current Visit: No Status: Acute Assessment and plan: Chest x-ray negative, no acute exacerbation. Continue home medications. Nebulizers as needed. Qualifiers: Emphysema type: unspecified Qualified Code(s): J43.9 - Emphysema, unspecified (4) HLD (hyperlipidemia) Current Visit: No Status: Acute Assessment and plan: Continue home medications. Qualifiers: Qualified Code(s): E78.5 - Hyperlipidemia, unspecified (5) HTN (hypertension) Current Visit: No Status: Acute Assessment and plan: Continue home medications. Currently well controlled. Qualifiers: Hypertension type: essential hypertension Qualified Code(s): I10 - Essential (primary) hypertension (6) DVT prophylaxis Current Visit: No Status: Acute Assessment and plan: Continue with home dose Eliquis. (7) Tobacco abuse Current Visit: No Status: Acute Assessment and plan: Start nicotine patch. (8) CKD (chronic kidney disease) Current Visit: Yes Status: Acute Assessment and plan: Gentle hydration. Okay to continue Lasix. Monitor with a.m. labs. Qualifiers: Qualified Code(s): N18.9 - Chronic kidney disease, unspecified - Time Spent With Patient Total time spent is greater than 50% in coordination of care (as documented) at patient's floor/unit and/or counseling patient: Greater than 35 minutes
--- NOTE | 2018-02-02 00:12 | Event Note ---
Date of Encounter: 02/02/18 Time of Encounter: 00:10 Patient was seen and examined. I agree with the H&P as written by the Resident Physician. Briefly, patient is 72 male with h/o diastolic HF, SSS s/p pacemaker, afib on anticoags, HTN, COPD not on home O2, tobacco abuse who presents with generalized swelling and dyspnea on exertion. Admits to noncompliance with diet. In the ED patient was around 90% O2 sats and put on supplemental O2. Otherwise hemodynamically stable. He had work up that showed clear CXR, creatinine elevated at 1.42, BNP 281. EKG paced rhyth with no ischemic changes. Patient takes lasix 20 mg BID according to him but bottle says 20 mg daily. Given lasix 60 mg IV in the ED A/O x3, NAD RRR. S1, S2, No m/r/g Diminished breath sounds but no crackles Generalized anasarca, +BS, NT abdomen LE edema, 2+ DP Nonfocal Admit to hospitalist for acute exacerbation of diastolic HF/BITA Lasix 40 mg IV BID Monitor weight, I&O's O2 supports and wean as tolerated Nebs PRN Monitor kidney function Avoid other nephrotoxins Fluid restriction TTE cardiac diet Resume anticoagulation Nicotine patch
[2018-02-02] MEDS ORDERED: Naloxone 0.4 MG/ML INJ IVP PRN (00:25)
[2018-02-02] MEDS ORDERED: Acetaminophen 325 MG TABLET PO PRN (00:25)
[2018-02-02] MEDS ORDERED: Albuterol 2.5 MG/3 ML NEBULIZER IH PRN (00:28)
[2018-02-02] MEDS ORDERED: 0.9 % Sodium Chloride 1,000 ML IVC SCH (02:30)
[2018-02-02 06:47] LABS: Basophils % 0.5 %; Eosinophils # 0.1 K/mcL (0.0-0.6); Eosinophils % 0.8 %; Hematocrit 41.3 % (37.5-50.1); Hemoglobin 14.4 g/dL (12.9-16.9); Immature Granulocytes % 0.3 % (0-4); Lymphocytes # 1.8 K/mcL (0.6-4.6); Lymphocytes % 27.7 %; Mean Corpuscular HGB Conc 34.9 g/dL (31.6-35.5); Mean Corpuscular Hemoglobin 33.7 pg (28.0-33.3); Mean Corpuscular Volume 96.7 fL (83.0-100.0); Mean Platelet Volume 9.9 fL (9.4-12.4); Monocytes # 0.6 K/mcL (0.0-1.3); Neutrophils # 3.8 K/mcL (1.6-8.9); Platelet Count 165 K/mcL (140-400); Red Blood Count 4.27 M/mcL (4.19-5.50); Red Cell Distribution Width 12.9 % (11.5-14.5); Segmented Neutrophils % 60.7 %
[2018-02-02 07:42] LABS: Alanine Aminotransferase 20 Units/L (7-52); Albumin/Globulin Ratio 1.6 (1.1-2.2); Alkaline Phosphatase 56 Units/L (34-104); Aspartate Amino Transferase 17 Units/L (13-39); BUN/Creatinine Ratio 16 (6-26); Bilirubin,Total 0.9 mg/dL (0.3-1.0); Blood Urea Nitrogen 20 mg/dL (8-23); Calcium 9.5 mg/dL (8.6-10.3); Carbon Dioxide 32 mEq/L (23-29); Chloride 97 mEq/L (98-107); Globulin 2.5 g/dL (2.4-3.5); Glucose 106 mg/dL (70-105); Osmolality,Calculated 285 (280-300); Potassium 3.5 mEq/L (3.5-5.1); Sodium 136 mEq/L (136-145); Total Protein 6.5 g/dL (6.4-8.9); eGFR For African Americans > 60 (> 60); eGFR For Non-African Americans 55 (> 60)
[2018-02-02] MEDS: Apixaban 5 MG TABLET PO SCH ×2 (08:03→20:31)
[2018-02-02] MEDS: Nicotine 14 MG PATCH.TD24 TD SCH (08:03)
[2018-02-02] MEDS: Furosemide 40 MG/4 ML VIAL IVP SCH ×2 (08:03→17:18)
[2018-02-02] MEDS ORDERED: Furosemide 20 MG TABLET PO SCH (09:00)
--- NOTE | 2018-02-02 15:23 | Internal Med Progress Note ---
Date of Encounter: 02/02/18 Time of Encounter: 15:17 - Assessment and plan (1) Acute exacerbation of CHF (congestive heart failure) Current Visit: Yes Status: Acute Assessment and plan: Patient presented with dyspnea and increased bilateral lower extremity swelling as well as weight gain Known history of congestive heart failure with EF of 55% per echo on 07/24 Patient on Lasix and metoprolol. Reporting liberal salt and water intake at home Discussed need for lifestyle modification including monitoring sodium intake and maintaining sodium less than 2 g daily, monitoring water intake ingesting less then 2 L of water daily Shortness of breath has improved today, no longer dyspneic, extremity swelling has resolved Continue IV diuresis 1 more day then switch to oral diuretics Continue strict I&O and daily weights Monitor renal function Daily labs limited echocardiogram pending Patient instructed to ambulate and increase activity as tolerated Qualifiers: Heart failure type: unspecified Qualified Code(s): I50.9 - Heart failure, unspecified (2) Lower extremity edema Current Visit: Yes Status: Resolved Assessment and plan: See above (3) COPD (chronic obstructive pulmonary disease) Current Visit: No Status: Acute Assessment and plan: History of COPD, not in acute exacerbation, Continue home medications. Nebulizers as needed. Qualifiers: Emphysema type: unspecified Qualified Code(s): J43.9 - Emphysema, unspecified (4) HLD (hyperlipidemia) Current Visit: No Status: Acute Assessment and plan: Continue home lipid medications Qualifiers: Qualified Code(s): E78.5 - Hyperlipidemia, unspecified (5) HTN (hypertension) Current Visit: No Status: Acute Assessment and plan: History of hypertension, currently stable. Continue home anti-HTN medications Qualifiers: Hypertension type: essential hypertension Qualified Code(s): I10 - Essential (primary) hypertension (6) Tobacco abuse Current Visit: No Status: Acute Assessment and plan: Continue nicotine that (7) CKD (chronic kidney disease) Current Visit: Yes Status: Acute Assessment and plan: History of CKD. Renal function stable, serum creatinine 1.27. Okay to continue IV Lasix, changed to oral Lasix tomorrow if no changes overnight.. Monitor with a.m. labs. Qualifiers: Qualified Code(s): N18.9 - Chronic kidney disease, unspecified (8) DVT prophylaxis Current Visit: No Status: Acute Assessment and plan: Continue eliquis, increase activity - Time Spent With Patient Total time spent is greater than 50% in coordination of care (as documented) at patient's floor/unit and/or counseling patient: 25 - 35 minutes - Subjective Interval history: Mr. Stafford is a 72 year old male with past medical history of COPD, hyperlipidemia, hypertension, CHF with preserved ejection fraction, splenic artery aneurysm, CK D presents to the ED with complaints of worsening lower extremity edema, shortness of breath with exertion. No acute changes overnight. Patient seen and examined at bedside today, reporting that shortness of breath is improving. Also reporting swelling is improving. States he is almost back to baseline - Constitutional Vitals: Temp Pulse Resp BP Pulse Ox 97.5 F L 60 16 110/75 90 02/02/18 11:54 02/02/18 11:54 02/02/18 11:54 02/02/18 11:54 02/02/18 11:54 General appearance: Present: A&O X 3, no acute distress, answers questions appropriately - Head Head exam: Present: atraumatic, normocephalic - Eye Eye exam: Present: PERRL, conjuntiva pink, sclera anicteric Pupils: Present: PERRL - Neck Neck exam general surgery: Present: supple, trachea midline. Absent: lymphadenopathy - Respiratory Respiratory exam: Present: decreased breath sounds, CTAB. Absent: accessory muscle use, rales, rhonchi, wheezes - Cardiovascular Cardiovascular exam: Present: RRR, +S1, +S2. Absent: diastolic murmur, gallop, rubs, systolic murmur - GI/Abdominal GI/Abdominal exam: Present: normal bowel sounds, soft, no peritoneal signs. Absent: distended, tenderness - Extremities Exam Extremities exam: Present: warm, radial pulses palpable and symmetrical. Absent : calf tenderness, cyanotic, pedal edema - Neurological Exam Neurological exam: Present: CN II-XII intact, oriented X3, no focal deficits. Absent: pronater drift, facial droop, speech deficit - Skin Skin exam: Present: dry, intact Internal Medicine: Result - Labs CBC & Chem 7: 02/02/18 05:24 02/02/18 05:24 Labs: Short CBC 02/02/18 Range/Units 05:24 WBC 6.3 (4.3-11.1) K/mcL Hgb 14.4 (12.9-16.9) g/dL Hct 41.3 (37.5-50.1) % Plt Count 165 (140-400) K/mcL Neutrophils # 3.8 (1.6-8.9) K/mcL BMP 02/02/18 05:24 Sodium 136 Potassium 3.5 Chloride 97 L Carbon Dioxide 32 H BUN 20 Creatinine 1.27 Glucose 106 H Calcium 9.5 Liver Function 02/02/18 Range/Units 05:24 Total Bilirubin 0.9 (0.3-1.0) mg/dL AST 17 (13-39) Units/L ALT 20 (7-52) Units/L Alkaline Phosphatase 56 (34-104) Units/L Albumin 4.0 (3.5-5.7) g/dL Consult Discharge Plan - Plan Referrals: NONE,PCP [Primary Care Provider] -
[2018-02-02] MEDS ORDERED: traZODone 50 MG TABLET PO SCH (21:00)
[2018-02-03 07:14] VITALS: BP 94/66
--- NOTE | 2018-02-03 08:16 | Electrocardiograph Report ---
[address] [place] [address] Test Date: 2018-02-01 Pat Name: Иван Stafford Department: 104 Room: 3B64 Gender: M Dental Practitioner: EKP : 1945 Requested By: Antoni Recinos Order Number: [id number] Reading MD: Dexter Cai Measurements Intervals [place]tuck Rate: 61 P: AL: 0 QRS: -79 QRSD: 194 T: 96 QT: 494 QTc: 496 Interpretive Statements ELECTRONIC VENTRICULAR PACEMAKER ABNORMAL RHYTHM ECG Electronically Signed On 02-03-2018 8:14:34 EDT by Dexter Cai
[2018-02-03] MEDS: Furosemide 40 MG/4 ML VIAL IVP SCH (08:50)
[2018-02-03] MEDS: Nicotine 14 MG PATCH.TD24 TD SCH (08:51)
[2018-02-03] MEDS: Apixaban 5 MG TABLET PO SCH (08:51)
--- NOTE | 2018-02-03 09:53 | Discharge Summary ---
- NOTES TO OUTPATIENT PROVIDER Notes to Outpatient Provider: Patient admitted with difficulty in breathing and bilateral lower extremity edema. Found to have an acute exacerbation of congestive heart failure. Treat with IV Lasix with uneventful hospital course. Discharged in stable condition. Instructed to follow-up with PCP within 1 week of discharge Date of Encounter: 02/03/18 Time of Encounter: 09:50 - Discharge Diagnosis (1) Acute exacerbation of CHF (congestive heart failure) Priority: Primary Status: Acute Assessment and Plan: Patient presented with dyspnea and increased bilateral lower extremity swelling as well as weight gain As of 02/03/2018 date of discharge, BLE swelling has resolved, patient reporting that he is no longer dyspneic. Known history of congestive heart failure with EF of 55% per echo on 07/24 Patient on Lasix and metoprolol. Reporting liberal salt and water intake at home Discussed need for lifestyle modification including monitoring sodium intake and maintaining sodium less than 2 g daily, monitoring water intake ingesting less then 2 L of water daily Continued oral diuretics upon discharge. Patient has been instructed to notify PCP when he begins to notice swelling or increase in weight as well as shortness of breath. Patient ambulated around the unit found to have mild shortness of breath but no hypoxia noted. Patient recovered on room air shortness of breath subsided with less than 1 minute of rest. Qualifiers: Heart failure type: unspecified Qualified Code(s): I50.9 - Heart failure, unspecified (2) Lower extremity edema Priority: Secondary Status: Resolved Assessment and Plan: Resolved (3) COPD (chronic obstructive pulmonary disease) Priority: Secondary Status: Acute Assessment and Plan: History of COPD, not in acute exacerbation, Continue home medications. Qualifiers: Emphysema type: unspecified Qualified Code(s): J43.9 - Emphysema, unspecified (4) HLD (hyperlipidemia) Priority: Secondary Status: Acute Assessment and Plan: Continue home lipid medications Qualifiers: Hyperlipidemia type: unspecified Qualified Code(s): E78.5 - Hyperlipidemia , unspecified (5) HTN (hypertension) Priority: Secondary Status: Acute Assessment and Plan: History of hypertension, stable throughout the stay, SBP slightly low this morning in the high 90s. However patient reports that this is often like this at home as well.. Continue home anti-HTN medications upon discharge Qualifiers: Hypertension type: essential hypertension Qualified Code(s): I10 - Essential (primary) hypertension (6) Tobacco abuse Priority: Secondary Status: Acute Assessment and Plan: Discussed tobacco cessation (7) CKD (chronic kidney disease) Priority: Secondary Status: Acute Assessment and Plan: History of CKD. Renal function has remained stable throughout the stay. Qualifiers: Qualified Code(s): N18.9 - Chronic kidney disease, unspecified (8) DVT prophylaxis Priority: Secondary Status: Acute Hospital course: Mr. Stafford is a 72 year old male See assessment and plan for hospital course Discharge discussed with: patient, nurse - Time Spent with Patient Total time spent providing and/or coordinating discharge services: Less than 30 minutes - Discharge Medications Home Medications: Albuterol Sulfate [Albuterol Inhaler] 1 - 2 puff IH Q4HR PRN 06/26/15 [History] Albuterol Neb [Proventil Neb] 2.5 mg IH TID PRN 07/25/17 [History] Chlordiazepoxide [Librium] 25 mg PO TID PRN 07/25/17 [History] Metoprolol Tartrate [Lopressor] 50 mg PO BID 07/25/17 [History] Potassium Chloride [K-Tab ER] 20 meq PO DAILY #30 tablet.er 07/27/17 [Rx] Apixaban [Eliquis] 5 mg PO BID 02/02/18 [History] Furosemide [Lasix] 20 mg PO DAILY 02/02/18 [History] Trazodone HCl 50 mg PO HS 02/02/18 [History] Allergies/Adverse Reactions: 3 Allergy/AdvReac Type Severity Reaction Status Date / Time rivaroxaban [From Xarelto] AdvReac See Verified 02/01/18 21:05 Comments Date of admission: 02/01/18 23:50 Primary care physician: PCP NONE Consults: 02/02/18 09:27 Consult to Nurse Navigator [CONS] Routine Comment: CHF Discharging clinician: Santiago Murry Anticipated date of discharge: 02/03/18 - Constitutional Vitals: Temp Pulse Resp BP Pulse Ox 97.5 F L 60 16 94/66 91 02/03/18 07:13 02/03/18 07:13 02/03/18 07:13 02/03/18 07:13 02/03/18 07:13 General appearance: Present: A&O X 3, no acute distress, answers questions appropriately - Head Head exam: Present: atraumatic, normocephalic - Eye Eye exam: Present: PERRL, conjuntiva pink, sclera anicteric Pupils: Present: PERRL - Neck Neck exam general surgery: Present: supple, trachea midline. Absent: lymphadenopathy - Respiratory Respiratory exam: Present: CTAB. Absent: accessory muscle use, rales, rhonchi, wheezes - Cardiovascular Cardiovascular exam: Present: RRR, +S1, +S2. Absent: diastolic murmur, gallop, rubs, systolic murmur - GI/Abdominal GI/Abdominal exam: Present: normal bowel sounds, soft, no peritoneal signs. Absent: distended, tenderness - Extremities Exam Extremities exam: Present: warm, radial pulses palpable and symmetrical. Absent : calf tenderness, cyanotic, pedal edema - Neurological Exam Neurological exam: Present: CN II-XII intact, oriented X3, no focal deficits. Absent: pronater drift, facial droop, speech deficit - Skin Skin exam: Present: dry, intact - Patient Status Disposition: Home, Self-Care Condition: Good Overall status at discharge: patient is back to baseline - Discharge Instructions Follow Up With: NONE,PCP [Primary Care Provider] -
== END 2018-02-03 11:56 | disposition home or self-care (01) | DRG 291 ==
LOC: EMEROO 21:02 → 3BNU 23:50
PROVIDERS: ADMIT Internal Medicine; ATTEND Internal Medicine

== ENCOUNTER 2018-06-17 08:04 | Observation (INO) ==
[2018-06-17] MEDS ORDERED: Ipratropium/Albuterol Neb 3 ML IH ONE (08:20)
[2018-06-17] MEDS ORDERED: methylPREDNISolone 125 MG/2 ML VIAL IVP ONE (08:20)
[2018-06-17] MEDS ORDERED: Furosemide 40 MG/4 ML VIAL IVP ONE (08:20)
--- NOTE | 2018-06-17 08:25 | Emergency Department Note ---
Disposition Clinical Impression: Acute systolic (congestive) heart failure COPD (chronic obstructive pulmonary disease) Qualifiers: COPD type: unspecified COPD Qualified Code(s): J44.9 - Chronic obstructive pulmonary disease, unspecified Disposition: Admitted As Inpatient Condition: Fair Forms: ED Satisfaction Letter SOB HPI - General Chief Complaint: ED Shortness of Breath/Dyspnea Stated Complaint: LAURA Time Seen by Provider: 06/17/18 08:05 Source: patient, family Mode of arrival: ambulatory Limitations: no limitations Nursing Notes Reviewed: Yes Vital Signs Reviewed: Yes - History of Present Illness 73-year-old male presents to the emergency department with shortness of breath as well as feeling very weak. Patient does have history of CHF, pacemaker, COPD. Patient does have a nebulizer at home but does not use oxygen or CPAP. He does take 20 mg oral Lasix once daily. He is followed by Dr. Aleks Mariee cardiology. states that he has not felt well for about 2 or 3 months continue not get better. He was seen here approximately one month ago diagnosed with acute bronchitis and sent home. He said he still has not gotten any better does feel weeks had a productive cough of mucus. Patient states he feels like he is is full of fluid and is having a hard time breathing due to the fluid. He does notice more increased swelling in his ankles bilaterally. He is not having any pain anywhere just has generalized weakness. This is having a hard time sleeping as well due to is not feeling well. They state there has been no fevers or chills. He has no history of ACS. He is not complaining of any chest pain. Patient has no pain anywhere else. Patient otherwise has no complaints including headaches, blurry vision, neck pain, back pain, fevers, chills, nausea, vomiting, chest pain, abdominal pain, change in bowel movement, pain with urination, pain or tingling going down the arms or legs. - Related Data Home Medications Medication Instructions Recorded Confirmed Albuterol Sulfate [Albuterol 1 - 2 puff IH Q4HR PRN 06/26/15 03/26/18 Inhaler] Albuterol Neb [Proventil Neb] 2.5 mg IH TID PRN 07/25/17 03/26/18 Chlordiazepoxide [Librium] 25 mg PO TID PRN 07/25/17 03/26/18 Metoprolol Tartrate [Lopressor] 50 mg PO BID 07/25/17 03/26/18 Apixaban [Eliquis] 5 mg PO BID 02/02/18 03/26/18 Furosemide [Lasix] 20 mg PO DAILY 02/02/18 03/26/18 Previous Rx's Medication Instructions Recorded Potassium Chloride [K-Tab ER] 20 meq PO DAILY #30 tablet.er 07/27/17 predniSONE [Prednisone] 50 mg PO DAILY #5 tablet 06/06/18 Allergies Allergy/AdvReac Type Severity Reaction Status Date / Time rivaroxaban [From Xarelto] AdvReac See Verified 06/17/18 09:24 Comments All systems ED: reviewed and negative except as stated. Review of Systems: As Per HPI Past Medical History - Past Medical History Attestation: Yes The following information was validated with the patient. Source: patient Medical history: Reports: asthma, CHF, COPD, hyperlipidemia, hypertension, other Surgical history: Reports: appendectomy, cholecystectomy, pacemaker/AICD Psychiatric history: Reports: no psych history - Social History Smoking Status: Former smoker Smokeless Tobacco Status: No Alcohol use: Reports: none Drug use: Reports: none Physical Exam - General Limitations: no limitations General appearance: alert, in no apparent distress - Head Head exam: atraumatic, normocephalic, normal inspection - Eye Eye exam: Present: normal appearance, PERRL, EOMI - ENT ENT exam: normal exam, normal oropharynx, mucous membranes moist - Neck Neck exam: Present: normal inspection, full ROM, trachea midline - Chest Chest inspection: Present: normal inspection, symmetric chest wall rise - Respiratory Respiratory exam: Present: wheezes (And crackles bilaterally throughout.). Absent: respiratory distress, accessory muscle use, prolonged expiratory phase - Cardiovascular Cardiovascular exam: Present: regular rate, normal rhythm, normal heart sounds - Abdominal Exam Abdominal exam: Present: soft, Non-Tender, normal bowel sounds. Absent: tenderness, distention, guarding, rebound, rigidity - Extremities Exam Extremities exam: Present: normal inspection, full ROM, pedal edema (1+ bilaterally in the ankles). Absent: tenderness - Back Exam Back exam: Present: normal inspection, full ROM. Absent: tenderness, CVA tenderness (R), CVA tenderness (L) - Neurological Exam Neurological exam: Present: alert, oriented X3 - Skin Skin exam: Present: warm, dry, intact, normal color Course Course Narrative: We will get basic labs including CBC, BMP, BNP, trop and ECG as well as urinalysis. We will get chest x-ray. We will give patient triple DuoNeb treatment and Solu-Medrol. We will also give patient 20 mg IV Lasix. Vital Signs Temperature 97.8 F 06/17/18 08:07 Pulse Rate 87 06/17/18 08:07 Respiratory Rate 22 06/17/18 08:07 Blood Pressure 155/100 06/17/18 08:07 O2 Sat by Pulse Oximetry 95 06/17/18 08:07 Temperature 97.8 F 06/17/18 08:13 Pulse Rate 87 06/17/18 08:13 Respiratory Rate 20 06/17/18 08:31 Blood Pressure 155/100 06/17/18 08:13 O2 Sat by Pulse Oximetry 97 06/17/18 08:31 Oxygen Delivery Oxygen Delivery Room Air Shortness of Breath/Dyspnea - MDM Narrative Medical decision making narrative: 73-year-old male presents to the emergency department complaining of shortness of breath and generalized weakness. Patient's troponin was normal EKG just showed a paced rhythm unchanged from previous. Patient did have an elevated BNP. Otherwise had normal lab findings. Troponin also was normal. Urinalysis did not show any acute findings. Patient was given triple DuoNeb treatment as well as Solu-Medrol which did help with his breathing. This most likely is a COPD exacerbations when he got better with that. Patient's x-ray did read as normal but after comparing it myself with the old one patient did seem to have a little bit of pulmonary edema and bronchial cuffing possibly curly B lines. We will give patient a second dose of Lasix here in the emergency department of 20 mg. Patient most likely has a CHF exacerbation as well. Patient due to his symptoms of feeling weak also most likely CHF exacerbation with COPD exacerbation he will need admission for further evaluation. Family does agree with this plan. Spoke the hospitalist agreed to admit the patient to their service. Patient is admitted in stable condition. Chest X-Ray 06/17/18 08:20 IMPRESSION: Stable chest radiograph. No evidence of pneumonia or pleural effusion. D/ / Milton Louise / Milton Louise Interpreting Provider: Milton Louise - Medical Records Medical records reviewed: Yes I reviewed the patient's medical records. - Lab Data Lab results reviewed: Yes I reviewed the patient's lab results. Result diagrams: 06/17/18 08:33 06/17/18 08:33 Lab Results 06/17/18 06/17/18 06/17/18 Range/Units 07:16 08:33 08:33 WBC 6.7 (4.3-11.1) K/mcL RBC 4.58 (4.19-5.50) M/mcL Hgb 15.2 (12.9-16.9) g/dL Hct 44.2 (37.5-50.1) % MCV 96.5 (83.0-100.0) fL MCH 33.2 (28.0-33.3) pg MCHC 34.4 (31.6-35.5) g/dL RDW 13.5 (11.5-14.5) % Plt Count 175 (140-400) K/mcL MPV 9.8 (9.4-12.4) fL Immature Gran % 0.3 (0-4) % Seg Neutrophils % 60.2 % Lymphocytes % 28.5 % Monocytes % 10.1 % Eosinophils % 0.6 % Basophils % 0.3 % Neutrophils # 4.1 (1.6-8.9) K/mcL Lymphocytes # 1.9 (0.6-4.6) K/mcL Monocytes # 0.7 (0.0-1.3) K/mcL Eosinophils # 0.0 (0.0-0.6) K/mcL Basophils # 0.0 (0.0-0.2) K/mcL Sodium 134 L (136-145) mEq/L Potassium 4.0 (3.5-5.1) mEq/L Chloride 102 (98-107) mEq/L Carbon Dioxide 25 (23-29) mEq/L BUN 15 (8-23) mg/dL Creatinine 0.98 (0.70-1.30) mg/dL Est GFR ( Amer) > 60 (> 60) Est GFR (Non-Af Amer) > 60 (> 60) BUN/Creatinine Ratio 15 (6-26) Glucose 123 H (70-105) mg/dL Calculated Osmolality 280 (280-300) Calcium 9.1 (8.6-10.3) mg/dL Troponin I < 0.03 (< 0.04) ng/mL B-Natriuretic Peptide (Less than 100) pg/mL Urine Color Yellow (Yellow) Urine Clarity Clear (Clear) Urine pH 7.0 (5.0-8.0) pH Units Ur Specific Gary 1.012 (1.010-1.025) Urine Protein Negative (Neg-Trace) mg/dL Urine Glucose (UA) Normal (Normal) mg/dL Urine Ketones Negative (Negative) mg/dL Urine Blood Negative (Negative) Urine Nitrite Negative (Negative) Urine Bilirubin Negative (Negative) Urine Urobilinogen Normal (Normal) mg/dL Ur Leukocyte Esterase Negative (Negative) Ur Culture Indicated? NO (NO) 06/17/18 Range/Units 08:33 WBC (4.3-11.1) K/mcL RBC (4.19-5.50) M/mcL Hgb (12.9-16.9) g/dL Hct (37.5-50.1) % MCV (83.0-100.0) fL MCH (28.0-33.3) pg MCHC (31.6-35.5) g/dL RDW (11.5-14.5) % Plt Count (140-400) K/mcL MPV (9.4-12.4) fL Immature Gran % (0-4) % Seg Neutrophils % % Lymphocytes % % Monocytes % % Eosinophils % % Basophils % % Neutrophils # (1.6-8.9) K/mcL Lymphocytes # (0.6-4.6) K/mcL Monocytes # (0.0-1.3) K/mcL Eosinophils # (0.0-0.6) K/mcL Basophils # (0.0-0.2) K/mcL Sodium (136-145) mEq/L Potassium (3.5-5.1) mEq/L Chloride (98-107) mEq/L Carbon Dioxide (23-29) mEq/L BUN (8-23) mg/dL Creatinine (0.70-1.30) mg/dL Est GFR ( Amer) (> 60) Est GFR (Non-Af Amer) (> 60) BUN/Creatinine Ratio (6-26) Glucose (70-105) mg/dL Calculated Osmolality (280-300) Calcium (8.6-10.3) mg/dL Troponin I (< 0.04) ng/mL B-Natriuretic Peptide 307 H (Less than 100) pg/mL Urine Color (Yellow) Urine Clarity (Clear) Urine pH (5.0-8.0) pH Units Ur Specific Gary (1.010-1.025) Urine Protein (Neg-Trace) mg/dL Urine Glucose (UA) (Normal) mg/dL Urine Ketones (Negative) mg/dL Urine Blood (Negative) Urine Nitrite (Negative) Urine Bilirubin (Negative) Urine Urobilinogen (Normal) mg/dL Ur Leukocyte Esterase (Negative) Ur Culture Indicated? (NO) - Radiology Data Radiology results reviewed: Yes I reviewed the patient's radiology results. - EKG Data EKG attestation: Yes I reviewed and interpreted this EKG. EKG results narrative: EKG done at 0 8:15 review myself and attending shows a ventricularly paced rhythm at a rate of 68, ID intervals 68, QRS 172, QTC [address] changes no acute T-wave changes no signs of ischemia. No signs of heart block, hypertrophy, heart strain. No WPW/Brugada/HOCM. This EKG is unchanged when compared with old one done 06/06/18 Attestation Statement - Attestation Attestation: I, Jackson Arizmendi DO, examined this patient [id number] and my medical decision-making was reviewed with Dr. Juan Garza, Resident Physician. I agree with the documented findings, disposition and treatment plan as described except to the extent set forth below. Please see my progress notes for details.
[2018-06-17 08:53] LABS: Basophils % 0.3 %; Eosinophils % 0.6 %; Hematocrit 44.2 % (37.5-50.1); Hemoglobin 15.2 g/dL (12.9-16.9); Immature Granulocytes % 0.3 % (0-4); Lymphocytes # 1.9 K/mcL (0.6-4.6); Lymphocytes % 28.5 %; Mean Corpuscular HGB Conc 34.4 g/dL (31.6-35.5); Mean Corpuscular Hemoglobin 33.2 pg (28.0-33.3); Mean Corpuscular Volume 96.5 fL (83.0-100.0); Mean Platelet Volume 9.8 fL (9.4-12.4); Monocytes # 0.7 K/mcL (0.0-1.3); Monocytes % 10.1 %; Neutrophils # 4.1 K/mcL (1.6-8.9); Platelet Count 175 K/mcL (140-400); Red Blood Count 4.58 M/mcL (4.19-5.50); Red Cell Distribution Width 13.5 % (11.5-14.5); Segmented Neutrophils % 60.2 %
[2018-06-17 08:58] LABS: Troponin I < 0.03 ng/mL (< 0.04)
[2018-06-17 09:04] LABS: Bilirubin,Urine Negative (Negative); Blood,Urine Negative (Negative); Clarity,Urine Clear (Clear); Color,Urine Yellow (Yellow); Glucose,Urine (UA) Normal (Normal); Ketones,Urine Negative (Negative); Leukocyte Esterase,Urine Negative (Negative); Nitrite,Urine Negative (Negative); Protein,Urine Negative (Neg-Trace); Specific Gravity,Urine 1.012 (1.010-1.025); Urobilinogen,Urine Normal (Normal)
--- NOTE | 2018-06-17 09:11 | Emergency Department Note ---
Disposition Clinical Impression: Acute systolic (congestive) heart failure, Shortness of breath, Orthopnea COPD (chronic obstructive pulmonary disease) Qualifiers: COPD type: unspecified COPD Qualified Code(s): J44.9 - Chronic obstructive pulmonary disease, unspecified Disposition: Admitted As Inpatient Condition: Fair Forms: ED Satisfaction Letter Time of Disposition: 09:38 General Adult HPI - General Chief complaint: ED Shortness of Breath/Dyspnea Stated complaint: LAURA Time Seen by Provider: 06/17/18 08:05 Source: patient, family Mode of arrival: ambulatory Limitations: no limitations - History of Present Illness Pain Scale: 0 - Related Data Home Medications Medication Instructions Recorded Confirmed Albuterol Sulfate [Albuterol 1 - 2 puff IH Q4HR PRN 06/26/15 03/26/18 Inhaler] Albuterol Neb [Proventil Neb] 2.5 mg IH TID PRN 07/25/17 03/26/18 Chlordiazepoxide [Librium] 25 mg PO TID PRN 07/25/17 03/26/18 Metoprolol Tartrate [Lopressor] 50 mg PO BID 07/25/17 03/26/18 Apixaban [Eliquis] 5 mg PO BID 02/02/18 03/26/18 Furosemide [Lasix] 20 mg PO DAILY 02/02/18 03/26/18 Lisinopril [Zestril] 10 mg PO DAILY 06/17/18 06/17/18 Previous Rx's Medication Instructions Recorded Potassium Chloride [K-Tab ER] 20 meq PO DAILY #30 tablet.er 07/27/17 Allergies Allergy/AdvReac Type Severity Reaction Status Date / Time rivaroxaban [From Xarelto] AdvReac See Verified 06/17/18 09:24 Comments Past Medical History - Past Medical History Medical history: Reports: asthma, CHF, COPD, hyperlipidemia, hypertension, other Surgical history: Reports: appendectomy, cholecystectomy, pacemaker/AICD Psychiatric history: Reports: no psych history - Social History Smoking Status: Former smoker Smokeless Tobacco Status: No Alcohol use: Reports: none Drug use: Reports: none Physical Exam - General Limitations: no limitations General appearance: alert, in no apparent distress Course Vital Signs Temperature 97.8 F 06/17/18 08:07 Pulse Rate 87 06/17/18 08:07 Respiratory Rate 22 06/17/18 08:07 Blood Pressure 155/100 06/17/18 08:07 O2 Sat by Pulse Oximetry 95 06/17/18 08:07 Temperature 97.8 F 06/17/18 08:13 Pulse Rate 87 06/17/18 08:13 Respiratory Rate 20 06/17/18 08:31 Blood Pressure 155/100 06/17/18 08:13 O2 Sat by Pulse Oximetry 97 06/17/18 08:31 Oxygen Delivery Oxygen Delivery Room Air Medical Decision Making - Lab Data Result diagrams: 06/17/18 08:33 06/17/18 08:33 Lab Results 06/17/18 06/17/18 06/17/18 Range/Units 07:16 08:33 08:33 WBC 6.7 (4.3-11.1) K/mcL RBC 4.58 (4.19-5.50) M/mcL Hgb 15.2 (12.9-16.9) g/dL Hct 44.2 (37.5-50.1) % MCV 96.5 (83.0-100.0) fL MCH 33.2 (28.0-33.3) pg MCHC 34.4 (31.6-35.5) g/dL RDW 13.5 (11.5-14.5) % Plt Count 175 (140-400) K/mcL MPV 9.8 (9.4-12.4) fL Immature Gran % 0.3 (0-4) % Seg Neutrophils % 60.2 % Lymphocytes % 28.5 % Monocytes % 10.1 % Eosinophils % 0.6 % Basophils % 0.3 % Neutrophils # 4.1 (1.6-8.9) K/mcL Lymphocytes # 1.9 (0.6-4.6) K/mcL Monocytes # 0.7 (0.0-1.3) K/mcL Eosinophils # 0.0 (0.0-0.6) K/mcL Basophils # 0.0 (0.0-0.2) K/mcL Sodium 134 L (136-145) mEq/L Potassium 4.0 (3.5-5.1) mEq/L Chloride 102 (98-107) mEq/L Carbon Dioxide 25 (23-29) mEq/L BUN 15 (8-23) mg/dL Creatinine 0.98 (0.70-1.30) mg/dL Est GFR ( Amer) > 60 (> 60) Est GFR (Non-Af Amer) > 60 (> 60) BUN/Creatinine Ratio 15 (6-26) Glucose 123 H (70-105) mg/dL Calculated Osmolality 280 (280-300) Calcium 9.1 (8.6-10.3) mg/dL Troponin I < 0.03 (< 0.04) ng/mL B-Natriuretic Peptide (Less than 100) pg/mL Urine Color Yellow (Yellow) Urine Clarity Clear (Clear) Urine pH 7.0 (5.0-8.0) pH Units Ur Specific [place] 1.012 (1.010-1.025) Urine Protein Negative (Neg-Trace) mg/dL Urine Glucose (UA) Normal (Normal) mg/dL Urine Ketones Negative (Negative) mg/dL Urine Blood Negative (Negative) Urine Nitrite Negative (Negative) Urine Bilirubin Negative (Negative) Urine Urobilinogen Normal (Normal) mg/dL Ur Leukocyte Esterase Negative (Negative) Ur Culture Indicated? NO (NO) 06/17/18 Range/Units 08:33 WBC (4.3-11.1) K/mcL RBC (4.19-5.50) M/mcL Hgb (12.9-16.9) g/dL Hct (37.5-50.1) % MCV (83.0-100.0) fL MCH (28.0-33.3) pg MCHC (31.6-35.5) g/dL RDW (11.5-14.5) % Plt Count (140-400) K/mcL MPV (9.4-12.4) fL Immature Gran % (0-4) % Seg Neutrophils % % Lymphocytes % % Monocytes % % Eosinophils % % Basophils % % Neutrophils # (1.6-8.9) K/mcL Lymphocytes # (0.6-4.6) K/mcL Monocytes # (0.0-1.3) K/mcL Eosinophils # (0.0-0.6) K/mcL Basophils # (0.0-0.2) K/mcL Sodium (136-145) mEq/L Potassium (3.5-5.1) mEq/L Chloride (98-107) mEq/L Carbon Dioxide (23-29) mEq/L BUN (8-23) mg/dL Creatinine (0.70-1.30) mg/dL Est GFR ( Amer) (> 60) Est GFR (Non-Af Amer) (> 60) BUN/Creatinine Ratio (6-26) Glucose (70-105) mg/dL Calculated Osmolality (280-300) Calcium (8.6-10.3) mg/dL Troponin I (< 0.04) ng/mL B-Natriuretic Peptide 307 H (Less than 100) pg/mL Urine Color (Yellow) Urine Clarity (Clear) Urine pH (5.0-8.0) pH Units Ur Specific [place] (1.010-1.025) Urine Protein (Neg-Trace) mg/dL Urine Glucose (UA) (Normal) mg/dL Urine Ketones (Negative) mg/dL Urine Blood (Negative) Urine Nitrite (Negative) Urine Bilirubin (Negative) Urine Urobilinogen (Normal) mg/dL Ur Leukocyte Esterase (Negative) Ur Culture Indicated? (NO) Attestation Statement - Attestation Attestation: I, Jackson Arizmendi DO, examined this patient [id number] and my medical decision-making was reviewed with Dr. Juan Garza, Resident Physician. I agree with the documented findings, disposition and treatment plan as described except to the extent set forth below. Please see my progress notes for details. 73-year-old male presents emergency room for evaluation of shortness of breath and orthopnea. Patient's denying chest pain fevers chills nausea vomiting or diarrhea. No headache no vision changes. He currently is on Eliquis secondary to cardiac issues including atrial fibrillation as well as a stroke approximately 3 months ago. On presentation the patient is alert he is oriented he speaks in full sentences. His vital signs otherwise stable and unremarkable. Head is atraumatic pupils are round reactive. No facial asymmetry or abnormality noted. Patient ambulated into the emergency room with no signs of ataxia or deficit. His lungs are clear but diminished bilaterally with poor air movement. Heart is regular secondary to the pacemaker. Abdomen is soft nontender nondistended with no guarding or rigidity. Patient has pitting edema to the midcalf bilaterally that is symmetric. Has good palpable DP and PT pulses that are symmetric. Patient denies any headache or other issues at this point. Concern is noted for fluid overload. He is on a diuretic at home but says that he feels like he is filling up with fluid and he has difficulty with ambulation and lying flat. Full workup and treatment course to be establishing with CBC chemistry troponin and BNP chest x-ray and BNP. First dose of IV Lasix will be given is the remainder the evaluation is established and completed. Patient will be provided with aspirin once the chest x-ray is resulted. Disposition will most likely be admission to the hospital. See detailed documentation of the physical exam, medical intervention , medical decision-making disposition the resident physician's note. No critical care provider the patient's treatment course at this time. 924 Patient was discussed with the hospitals. He does show what appears to be some cephalization to the lungs is most likely chronic based on review of previous x- rays. His vital signs have remained stable. His wheezing or decreased aeration or air movement of the lungs is better after the breathing treatments. He does have an elevated BNP today that is higher than previous. Patient will be provided with 40 mg total IV Lasix here in the emergency room and admission to be established. No other recommendations or concerns from the hospitalist at this time. Patient is otherwise clinically stable. We will continue to monitor here until the patient was transported to the floor. No other acute issues noted this time. Patient still has been asymptomatic as long as he is sitting in the bed and not exerting himself.
[2018-06-17 09:18] LABS: BUN/Creatinine Ratio 15 (6-26); Blood Urea Nitrogen 15 mg/dL (8-23); Calcium 9.1 mg/dL (8.6-10.3); Carbon Dioxide 25 mEq/L (23-29); Chloride 102 mEq/L (98-107); Glucose 123 mg/dL (70-105); Osmolality,Calculated 280 (280-300); Sodium 134 mEq/L (136-145); eGFR For Non-African Americans > 60 (> 60)
[2018-06-17] MEDS ORDERED: Furosemide 20 MG/2 ML VIAL IVP ONE (09:21)
[2018-06-17] MEDS ORDERED: Naloxone 0.4 MG/ML INJ IVP PRN (09:30)
[2018-06-17] MEDS ORDERED: Albuterol 2.5 MG/3 ML NEBULIZER IH PRN (09:33)
--- NOTE | 2018-06-17 10:06 | Internal Med History&Physical ---
Date of Encounter: 06/17/18 Time of Encounter: 09:30 Internal Medicine - H&P: HPI Chief complaint: Shortness of breath, weakness Admitted From: Home History of present illness: Mr. Stafford is a 73 year old male with past medical history of heart failure with reduced EF, COPD, tobacco abuse, presented to the ED with shortness of breath that has been progressively worsening for the last few weeks. Associated with generalized weakness, orthopnea, and leg swelling. Also had cough with whitish sputum production that is increasing in frequency. Denies any chest pain, palpitation, fever/chills, nausea/vomiting, GI/ symptoms, or sick contacts. He has been taking Lasix 20 mg for the last several months without titration of the doses. Sees Dr. Mariee as an outpatient for CHF and device check. In the ED, he was afebrile and hemodynamically stable. Labs were unremarkable except for BNP which was elevated at 307 (slightly higher than his last 2 values). Troponin was negative. Chest x-ray did not show any obvious opacity or large pleural effusion but ? Mild pulmonary vascular congestion. He was given IV Solu-Medrol, IV Lasix, bronchodilators, and admitted for further management. Past Med Surg Social Fam HX - Past Medical History Attestation: Yes The following information was validated with the patient. Medical history: asthma, CHF, COPD, hyperlipidemia, hypertension, other Additional medical history: pacemaker Psychiatric history: no psych history - Past Surgical History Surgical History: appendectomy, cholecystectomy, pacemaker/AICD Additional surgical history: Skin CA removal, Pacemaker - Social History Smoking Status: Former smoker Smokeless Tobacco Status: No Alcohol use: none Drug use: none - Family History Mother Hx Family Neurologic Disorders: Yes (CVA) Father Hx Family Cancer: Yes (Stomach) Brother Hx Family Cancer: Yes (Leukemia) Sister Hx Family Cancer: Yes (Pancreatic) Internal Medicine - H&P: Meds Albuterol Sulfate [Albuterol Inhaler] 1 - 2 puff IH Q4HR PRN 06/26/15 [History] Albuterol Neb [Proventil Neb] 2.5 mg IH TID PRN 07/25/17 [History] Chlordiazepoxide [Librium] 25 mg PO TID PRN 07/25/17 [History] Metoprolol Tartrate [Lopressor] 50 mg PO BID 07/25/17 [History] Potassium Chloride [K-Tab ER] 20 meq PO DAILY #30 tablet.er 07/27/17 [Rx] Apixaban [Eliquis] 5 mg PO BID 02/02/18 [History] Furosemide [Lasix] 20 mg PO DAILY 02/02/18 [History] Lisinopril [Zestril] 10 mg PO DAILY 06/17/18 [History] 3 Allergy/AdvReac Type Severity Reaction Status Date / Time rivaroxaban [From Xarelto] AdvReac See Verified 06/17/18 09:24 Comments All Systems PM: A 10-system review of systems was performed and is negative for pertinent findings except as documented above in the HPI. - Constitutional Vitals: Temp Pulse Resp BP Pulse Ox 97.8 F 87 20 155/100 97 06/17/18 08:13 06/17/18 08:13 06/17/18 08:31 06/17/18 08:13 06/17/18 08:31 Exam: General: Alert and oriented, not in acute distress. HEENT:EOM, pupils equal, round and reactive. Cardiovascular:Normal S1 & S2, unable to appreciate JVD. Pulse regular. Lungs: Bibasilar rales, scattered wheezes in both lung hawkins. No rhonchi Abdomen:Soft, non-tender, no rigidity. Extremities: Mild pitting edema around his ankles bilaterally Neurological:Normal cognition and motor skills. Non-focal Skin:Normal color, no rash, no lesions. Pulses:Carotid and radial pulses normal +2. Rest of the physical exam is non contributory Internal Med - H&P Results - Labs CBC & Chem 7: 06/17/18 08:33 06/17/18 08:33 Labs: Short CBC 06/17/18 Range/Units 08:33 WBC 6.7 (4.3-11.1) K/mcL Hgb 15.2 (12.9-16.9) g/dL Hct 44.2 (37.5-50.1) % Plt Count 175 (140-400) K/mcL Neutrophils # 4.1 (1.6-8.9) K/mcL BMP 06/17/18 08:33 Sodium 134 L Potassium 4.0 Chloride 102 Carbon Dioxide 25 BUN 15 Creatinine 0.98 Glucose 123 H Calcium 9.1 Cardiac Enzymes 10/11/18 Range/Units 08:33 Troponin I < 0.03 (< 0.04) ng/mL Urine 06/17/18 Range/Units 07:16 Urine Color Yellow (Yellow) Urine Clarity Clear (Clear) Urine pH 7.0 (5.0-8.0) pH Units Ur Specific [place] 1.012 (1.010-1.025) Urine Protein Negative (Neg-Trace) mg/dL Urine Glucose (UA) Normal (Normal) mg/dL - Impressions ITS Impressions Chest X-Ray 06/17/18 08:20 IMPRESSION: Stable chest radiograph. No evidence of pneumonia or pleural effusion. D/ / Milton Louise / Milton Louise Interpreting Provider: Milton Louise - Assessment and plan (1) Acute systolic (congestive) heart failure Current Visit: Yes Status: Acute Assessment and plan: Presented with signs and symptoms consistent with congestive heart failure and slightly elevated BNP from his baseline Compliant to his Lasix Last 2 echocardiograms in 01/2018 and 07/2017 reviewed. Limited one in January was not an optimal study for EF evaluation. EF was 40% with [id number] global LV systolic dysfunction and mild LV diastolic dysfunction in July/2017. Will repeat a full echo this time continue IV lasix 40mg QD, will likely to be discharged on increased dose of lasix I/O, fluid restrict 1.5 L per day (2) COPD exacerbation Current Visit: Yes Status: Acute Assessment and plan: Will treat with oral steroids and bronchodilators (3) HTN (hypertension) Current Visit: No Status: Chronic Assessment and plan: Resume home meds Qualifiers: Hypertension type: essential hypertension Qualified Code(s): I10 - Essential (primary) hypertension (4) Tobacco abuse Current Visit: No Status: Chronic Assessment and plan: Counseling provided, nicotine replacement therapy (5) Paroxysmal atrial fibrillation Current Visit: No Status: Chronic Assessment and plan: Status post pacemaker insertion Resume beta von and apixaban (6) DVT prophylaxis Current Visit: No Status: Acute Assessment and plan: On apixaban - Time Spent With Patient Total time spent is greater than 50% in coordination of care (as documented) at patient's floor/unit and/or counseling patient:
[2018-06-17] MEDS: Ipratropium/Albuterol Neb 3 ML IH SCH ×4 (11:33→23:52)
[2018-06-17] MEDS: Nicotine 7 MG PATCH.TD24 TD SCH (11:56)
[2018-06-17] MEDS ORDERED: Menthol 9.1 MG LOZENGE PO ONE (12:46)
[2018-06-17] MEDS ORDERED: *HR* LORazepam 1 MG TABLET PO ONE (15:45)
[2018-06-17] MEDS: Apixaban 5 MG TABLET PO SCH (20:22)
[2018-06-18] MEDS: Ipratropium/Albuterol Neb 3 ML IH SCH ×3 (04:37→11:06)
[2018-06-18 05:03] LABS: Hematocrit 41.3 % (37.5-50.1); Hemoglobin 14.2 g/dL (12.9-16.9); Mean Corpuscular HGB Conc 34.4 g/dL (31.6-35.5); Mean Corpuscular Hemoglobin 32.6 pg (28.0-33.3); Mean Corpuscular Volume 94.7 fL (83.0-100.0); Mean Platelet Volume 9.8 fL (9.4-12.4); Platelet Count 185 K/mcL (140-400); Red Blood Count 4.36 M/mcL (4.19-5.50); Red Cell Distribution Width 13.5 % (11.5-14.5)
[2018-06-18 05:20] LABS: BUN/Creatinine Ratio 18 (6-26); Blood Urea Nitrogen 20 mg/dL (8-23); Calcium 9.3 mg/dL (8.6-10.3); Carbon Dioxide 27 mEq/L (23-29); Chloride 92 mEq/L (98-107); Glucose 144 mg/dL (70-105); Magnesium 1.8 mg/dL (1.6-2.6); Osmolality,Calculated 267 (280-300); Sodium 126 mEq/L (136-145); eGFR For Non-African Americans > 60 (> 60)
[2018-06-18 07:24] VITALS: BP 128/74
[2018-06-18] MEDS: Nicotine 7 MG PATCH.TD24 TD SCH (08:22)
[2018-06-18] MEDS: Apixaban 5 MG TABLET PO SCH (08:22)
[2018-06-18] MEDS ORDERED: Furosemide 40 MG/4 ML VIAL IVP SCH (09:00)
--- NOTE | 2018-06-18 12:29 | Discharge Summary ---
<Jl Jang - Last Filed: 06/18/18 16:36> - NOTES TO OUTPATIENT PROVIDER Notes to Outpatient Provider: Admitted with CHF vs COPD exacerbation. Some diuresis during hospital stay but still wheezing on exam but clinically appears stable for discharge. Sent home with steroid taper and instructed to increase lasix to 40mg daily (20mg at home) for 3 days and follow up with PCP. Date of Encounter: 06/18/18 Time of Encounter: 10:00 - Discharge Diagnosis (1) HTN (hypertension) Priority: Secondary Status: Chronic Qualifiers: Hypertension type: essential hypertension Qualified Code(s): I10 - Essential (primary) hypertension (2) DVT prophylaxis Priority: Secondary Status: Acute (3) Tobacco abuse Priority: Secondary Status: Chronic (4) Acute systolic (congestive) heart failure Priority: Secondary Status: Acute (5) Paroxysmal atrial fibrillation Priority: Secondary Status: Chronic (6) COPD exacerbation Priority: Primary Status: Acute Hospital course: Mr. Stafford is a 73 year old male with past medical history of asthma, CHF, COPD, hyperlipidemia hypertension who presented to emergency department with complaint of shortness of breath has been progressively worsening over the past 2 weeks. He also had a increase in sputum production with change in nature. Denies any symptoms of chest pain, palpitations. On presentation to the emergency room, vital signs significant for mild hypertension at 155/100, tolerating room air. Laboratory results only significant for a BNP at 307 which is mildly elevated from previous results. Chest x-ray shows no evidence of pneumonia or pleural effusion. He is admitted to hospital for further evaluation and management of CHF versus COPD exacerbation. During course of hospital stay, patient did gradually improve. Echocardiogram was obtained and showed ejection fraction of 50% with indeterminate diastolic dysfunction which is consistent from previous results. He was given diuresis as well as 1 dose of Solu-Medrol in the emergency department with improvement of symptoms. On day of discharge, patient is very eager to return home. Vital signs and laboratory results returned to baseline levels with exception of WBC of 16.8 likely related to steroid administration. He states his symptoms are nearly back to baseline and he would like to go home today. We will prescribe him with a home steroid dose of 40 mg per day 5 days as well as instruct him to increase his home Lasix dose of 20 mg per day to twice a day for 3 days and to follow-up with his primary care physician. He is agreeable to this plan will be discharged home in stable medical condition. Discharge discussed with: patient, family - Time Spent with Patient Total time spent providing and/or coordinating discharge services: - Discharge Medications Prescriptions: PredniSONE [Deltasone] 40 mg PO DAILY #10 tablet Home Medications: Albuterol Sulfate [Albuterol Inhaler] 1 - 2 puff IH Q4HR PRN 06/26/15 [History] Albuterol Neb [Proventil Neb] 2.5 mg IH TID PRN 07/25/17 [History] Chlordiazepoxide [Librium] 25 mg PO TID PRN 07/25/17 [History] Metoprolol Tartrate [Lopressor] 50 mg PO BID 07/25/17 [History] Potassium Chloride [K-Tab ER] 20 meq PO DAILY #30 tablet.er 07/27/17 [Rx] Apixaban [Eliquis] 5 mg PO BID 02/02/18 [History] Furosemide [Lasix] 20 mg PO DAILY 02/02/18 [History] Lisinopril [Zestril] 10 mg PO DAILY 06/17/18 [History] Nicotine Patch [Nicoderm] 7 mg TD DAILY patch.td24 06/18/18 [Rx] PredniSONE [Deltasone] 40 mg PO DAILY #10 tablet 06/18/18 [Rx] Allergies/Adverse Reactions: 3 Allergy/AdvReac Type Severity Reaction Status Date / Time rivaroxaban [From Xarelto] AdvReac See Verified 06/17/18 09:24 Comments Date of admission: 06/17/18 09:53 Primary care physician: Marivel Vivar Discharging clinician: Jl Jang Anticipated date of discharge: 06/18/18 - Constitutional Vitals: Temp Pulse Resp BP Pulse Ox 97.7 F 73 10 128/74 91 06/18/18 06:51 06/18/18 06:51 06/18/18 07:57 06/18/18 06:51 06/18/18 07:57 Exam: Gen.: Vitals noted. No acute distress. AAOx3. Walking around room without oxygen assistance HEENT: PERRL/EOMI, oropharynx clear, Normocephalic, atraumatic, MMM Cardiac: RRR, no murmur, +S1/S2 Pulmonary: Mild to moderate wheezes in bases, otherwise CTA bilaterally, rales or rhonchi, equal chest expansion Abdomen: soft, nontender, BS noted, no guarding, no rebound. MSK: ROM intact, no joint swelling noted Extremities: no BLE edema, nontender calf, no cyanosis or clubbing Neuro: A&Ox3, moves all extremities, no focal deficits Psych: Appropriate mood and behavior - Patient Status Disposition: Home, Self-Care Condition: Fair Functional capacity at discharge: independent ambulation Overall status at discharge: patient is progressing back to baseline - Discharge Instructions Instructions: Heart Failure (DC), How to Stop Smoking (DC), Chronic Obstructive Pulmonary Disease (DC) Follow Up With: Vandana Gonzalez MD [Partnered Physician] - 07/16/18 8:15 am Marivel Vivar CNP [Primary Care Provider] - 06/25/18 11:15 am Additional Instructions: Go to nearest emergency room for any new or worsening symptoms. Followup with your primary care doctor. Weigh yourself daily - if 3 lb. or greater weight gain, please contact your physician. Follow a low sodium diet. Take Lasix 20mg twice daily through 06/21 then return to once daily. - Diet and Activity Activity: increase activity as tolerated Diet: advance to your usual diet <Tano Esparza - Last Filed: 06/18/18 18:39> Date of Encounter: 06/18/18 - Discharge Diagnosis (1) Acute systolic (congestive) heart failure Status: Resolved (2) HTN (hypertension) Status: Chronic Qualifiers: Hypertension type: essential hypertension Qualified Code(s): I10 - Essential (primary) hypertension (3) DVT prophylaxis Status: Acute (4) Tobacco abuse Status: Chronic (5) Paroxysmal atrial fibrillation Status: Chronic (6) COPD exacerbation Status: Resolved Hospital course: Mr. Stafford is a 73 year old male - Time Spent with Patient Total time spent providing and/or coordinating discharge services: Date of admission: 06/17/18 09:53 Primary care physician: Marivel Vivar - Constitutional Vitals: Temp Pulse Resp BP Pulse Ox 97.7 F 73 10 128/74 91 06/18/18 06:51 06/18/18 06:51 06/18/18 07:57 06/18/18 06:51 06/18/18 07:57 - Patient Status Functional capacity at discharge: independent ambulation Overall status at discharge: patient is progressing back to baseline - Diet and Activity Activity: increase activity as tolerated Diet: advance to your usual diet - Attending Attestation I examined this patient and my medical decision-making was reviewed with the Resident Physician on 06/18/18. I agree with the documented findings, disposition and treatment plan as described except to the extent set forth below. Mr Stafford has been in observation for acute exac CHF and probable COPD. He has improved with treatment. He is up walking in room. He feels at baseline and is not on oxygen. He is afebrile and ready for discharge home. Exam alert Comfortable Mucus membranes dry Heart not tachy Scant wheeze abd soft Plan D/C home today Increase PO Lasix till Thursday Steroids for 5 days
--- NOTE | 2018-06-19 11:05 | Electrocardiograph Report ---
[place] [id number] Test Date: 2018-06-17 Pat Name: Иван Stafford Department: EXAM2 Room: [facility] Gender: M [employer]: : 1945 Requested By: Juan Garza Order Number: [id number] Reading MD: Yolanda Bautista Measurements Intervals [place] Rate: 68 P: 263 ME: 68 QRS: -87 QRSD: 172 T: 93 QT: 469 QTc: 499 Interpretive Statements Ventricular-paced rhythm No further analysis attempted due to paced rhythm Electronically Signed On 06-19-2018 11:03:53 EDT by Yolanda Bautista
== END 2018-06-18 13:21 | disposition home or self-care (01) ==
LOC: 3NENU 08:04 → EMEROOARM 08:04 → SUATTDRO 09:53 → 3NENU 10:28
PROVIDERS: ADMIT Internal Medicine; ATTEND Internal Medicine

== ENCOUNTER 2018-07-21 14:31 | Inpatient (IN) ==
[2018-07-21] MEDS ORDERED: 0.9 % Sodium Chloride 1,000 ML IVC ONE (15:18)
[2018-07-21] MEDS ORDERED: Ondansetron 4 MG/2 ML VIAL IVP ONE (15:18)
--- NOTE | 2018-07-21 15:25 | Emergency Department Note ---
Disposition Clinical Impression: Upper GI bleed, Weakness, Epigastric abdominal pain Disposition: Admitted As Inpatient Referrals: Marivel Vivar CNP [Primary Care Provider] - Forms: ED Satisfaction Letter General Adult HPI - General Chief complaint: ED Weakness Stated complaint: "bloated" Time Seen by Provider: 07/21/18 15:07 Source: patient, family Limitations: no limitations - History of Present Illness Pain Scale: 6 - Related Data Home Medications Medication Instructions Recorded Confirmed Albuterol Sulfate [Albuterol 1 - 2 puff IH Q4HR PRN 06/26/15 06/17/18 Inhaler] Albuterol Neb [Proventil Neb] 2.5 mg IH TID PRN 07/25/17 06/17/18 Chlordiazepoxide [Librium] 25 mg PO TID PRN 07/25/17 06/17/18 Metoprolol Tartrate [Lopressor] 50 mg PO BID 07/25/17 06/17/18 Apixaban [Eliquis] 5 mg PO BID 02/02/18 06/17/18 Furosemide [Lasix] 20 mg PO DAILY 02/02/18 06/17/18 Lisinopril [Zestril] 10 mg PO DAILY 06/17/18 06/17/18 Previous Rx's Medication Instructions Recorded Potassium Chloride [K-Tab ER] 20 meq PO DAILY #30 tablet.er 07/27/17 Nicotine Patch [Nicoderm] 7 mg TD DAILY patch.td24 06/18/18 PredniSONE [Deltasone] 40 mg PO DAILY #10 tablet 06/18/18 HydrOXYzine Pamoate [Vistaril] 50 mg PO QPM #7 capsule 07/09/18 Allergies Allergy/AdvReac Type Severity Reaction Status Date / Time rivaroxaban [From Xarelto] AdvReac See Verified 07/11/18 18:29 Comments Past Medical History - Past Medical History Medical history: Reports: asthma, cancer, CHF, COPD, CVA, hyperlipidemia, hypertension, other Surgical history: Reports: appendectomy, cholecystectomy, pacemaker/AICD Psychiatric history: Reports: no psych history - Social History Smoking Status: Light tobacco smoker Smokeless Tobacco Status: No Alcohol use: Reports: none Drug use: Reports: none Physical Exam - General Limitations: no limitations General appearance: alert, in no apparent distress Course Vital Signs Temperature 98.0 F 07/21/18 14:34 Pulse Rate 65 11/14/18 14:34 Respiratory Rate 16 07/21/18 14:34 Blood Pressure 145/95 07/21/18 14:34 O2 Sat by Pulse Oximetry 96 07/21/18 14:34 Temperature 98.0 F 07/21/18 14:38 Pulse Rate 65 07/21/18 14:38 Respiratory Rate 16 07/21/18 14:38 Blood Pressure 145/95 07/21/18 14:38 O2 Sat by Pulse Oximetry 96 07/21/18 14:38 Oxygen Delivery Oxygen Delivery Room Air Medical Decision Making - MDM Narrative Medical decision making narrative: CT does not show any acute abnormality. Concerns for a gastric versus duodenal ulcer. Having increasing pain in this region as well as weakness in the setting of being on blood thinners with an upper GI bleed. I feel he needs to be admitted. He needs to be evaluated with the scope. he is at high risk of worsening bleeding. We started him on Protonix and Protonix drip. - Medical Records Medical records reviewed: Yes I reviewed the patient's medical records. - Lab Data Lab results reviewed: Yes I reviewed the patient's lab results. Result diagrams: 07/21/18 15:14 07/21/18 15:14 Lab Results 07/21/18 07/21/18 07/21/18 Range/Units 15:14 15:14 15:14 WBC 7.9 (4.3-11.1) K/mcL RBC 4.49 (4.19-5.50) M/mcL Hgb 15.0 (12.9-16.9) g/dL Hct 43.1 (37.5-50.1) % MCV 96.0 (83.0-100.0) fL MCH 33.4 H (28.0-33.3) pg MCHC 34.8 (31.6-35.5) g/dL RDW 13.2 (11.5-14.5) % Plt Count 210 (140-400) K/mcL MPV 9.1 L (9.4-12.4) fL Immature Gran % 0.1 (0-4) % Seg Neutrophils % 64.7 % Lymphocytes % 21.7 % Monocytes % 12.6 % Eosinophils % 0.4 % Basophils % 0.5 % Neutrophils # 5.1 (1.6-8.9) K/mcL Lymphocytes # 1.7 (0.6-4.6) K/mcL Monocytes # 1.0 (0.0-1.3) K/mcL Eosinophils # 0.0 (0.0-0.6) K/mcL Basophils # 0.0 (0.0-0.2) K/mcL PT 15.0 H (9.4-12.1) Seconds INR 1.3 Sodium 130 L (136-145) mEq/L Potassium 4.1 (3.5-5.1) mEq/L Chloride 96 L (98-107) mEq/L Carbon Dioxide 28 (23-29) mEq/L BUN 13 (8-23) mg/dL Creatinine 0.97 (0.70-1.30) mg/dL Est GFR ( Amer) > 60 (> 60) Est GFR (Non-Af Amer) > 60 (> 60) BUN/Creatinine Ratio 13 (6-26) Glucose 108 H (70-105) mg/dL Calculated Osmolality 271 L (280-300) Calcium 9.7 (8.6-10.3) mg/dL Total Bilirubin 0.8 (0.3-1.0) mg/dL Direct Bilirubin 0.2 (0.0-0.2) mg/dL Indirect Bilirubin 0.6 (0.0-1.2) mg/dL AST 19 (13-39) Units/L ALT 27 (7-52) Units/L Alkaline Phosphatase 58 (34-104) Units/L Troponin I < 0.03 (< 0.04) ng/mL Serum Total Protein 6.3 L (6.4-8.9) g/dL Albumin 4.0 (3.5-5.7) g/dL Globulin 2.3 L (2.4-3.5) g/dL Albumin/Globulin Ratio 1.7 (1.1-2.2) Lipase 11 (11-82) Units/L Urine Color (Yellow) Urine Clarity (Clear) Urine pH (5.0-8.0) pH Units Ur Specific [place] (1.010-1.025) Urine Protein (Neg-Trace) mg/dL Urine Glucose (UA) (Normal) mg/dL Urine Ketones (Negative) mg/dL Urine Blood (Negative) Urine Nitrite (Negative) Urine Bilirubin (Negative) Urine Urobilinogen (Normal) mg/dL Ur Leukocyte Esterase (Negative) Ur Culture Indicated? (NO) Stool Occult Blood (Negative) 07/21/18 07/21/18 Range/Units 15:27 15:37 WBC (4.3-11.1) K/mcL RBC (4.19-5.50) M/mcL Hgb (12.9-16.9) g/dL Hct (37.5-50.1) % MCV (83.0-100.0) fL MCH (28.0-33.3) pg MCHC (31.6-35.5) g/dL RDW (11.5-14.5) % Plt Count (140-400) K/mcL MPV (9.4-12.4) fL Immature Gran % (0-4) % Seg Neutrophils % % Lymphocytes % % Monocytes % % Eosinophils % % Basophils % % Neutrophils # (1.6-8.9) K/mcL Lymphocytes # (0.6-4.6) K/mcL Monocytes # (0.0-1.3) K/mcL Eosinophils # (0.0-0.6) K/mcL Basophils # (0.0-0.2) K/mcL PT (9.4-12.1) Seconds INR Sodium (136-145) mEq/L Potassium (3.5-5.1) mEq/L Chloride (98-107) mEq/L Carbon Dioxide (23-29) mEq/L BUN (8-23) mg/dL Creatinine (0.70-1.30) mg/dL Est GFR ( Amer) (> 60) Est GFR (Non-Af Amer) (> 60) BUN/Creatinine Ratio (6-26) Glucose (70-105) mg/dL Calculated Osmolality (280-300) Calcium (8.6-10.3) mg/dL Total Bilirubin (0.3-1.0) mg/dL Direct Bilirubin (0.0-0.2) mg/dL Indirect Bilirubin (0.0-1.2) mg/dL AST (13-39) Units/L ALT (7-52) Units/L Alkaline Phosphatase (34-104) Units/L Troponin I (< 0.04) ng/mL Serum Total Protein (6.4-8.9) g/dL Albumin (3.5-5.7) g/dL Globulin (2.4-3.5) g/dL Albumin/Globulin Ratio (1.1-2.2) Lipase (11-82) Units/L Urine Color Yellow (Yellow) Urine Clarity Clear (Clear) Urine pH 7.0 (5.0-8.0) pH Units Ur Specific [place] 1.007 L (1.010-1.025) Urine Protein Negative (Neg-Trace) mg/dL Urine Glucose (UA) Normal (Normal) mg/dL Urine Ketones Negative (Negative) mg/dL Urine Blood Negative (Negative) Urine Nitrite Negative (Negative) Urine Bilirubin Negative (Negative) Urine Urobilinogen Normal (Normal) mg/dL Ur Leukocyte Esterase Negative (Negative) Ur Culture Indicated? NO (NO) Stool Occult Blood Positive A (Negative) - Radiology Data Radiology results reviewed: Yes I reviewed the patient's radiology results. Critical Care Time Critical Care Time: No Attestation Statement - Attestation Attestation: I examined this patient and my medical decision-making [facility]. I agree with the documented findings, disposition and treatment plan as described except to the extent set forth below. 73-year-old male presents emergency room for epigastric abdominal pain and dark colored stools 3 weeks. States his pain in his abdomen is been getting worse. He does take Eliquis for history of A. fib. Poor appetite. Poor by mouth intake. Increasing weakness. Dark-colored stools. Concerns obviously for a upper GI bleed. We will check lab work as well as a CT scan abdomen and pelvis. Anticipate admission.
[2018-07-21 15:41] LABS: Basophils % 0.5 %; Eosinophils % 0.4 %; Hematocrit 43.1 % (37.5-50.1); Immature Granulocytes % 0.1 % (0-4); Lymphocytes # 1.7 K/mcL (0.6-4.6); Lymphocytes % 21.7 %; Mean Corpuscular HGB Conc 34.8 g/dL (31.6-35.5); Mean Corpuscular Hemoglobin 33.4 pg (28.0-33.3); Mean Platelet Volume 9.1 fL (9.4-12.4); Monocytes % 12.6 %; Neutrophils # 5.1 K/mcL (1.6-8.9); Platelet Count 210 K/mcL (140-400); Red Blood Count 4.49 M/mcL (4.19-5.50); Red Cell Distribution Width 13.2 % (11.5-14.5); Segmented Neutrophils % 64.7 %
--- NOTE | 2018-07-21 15:47 | Emergency Department Note ---
Disposition Clinical Impression: Upper GI bleed, Weakness, Epigastric abdominal pain Disposition: Admitted As Inpatient Condition: Fair Referrals: Marivel Vivar CNP [Primary Care Provider] - Forms: ED Satisfaction Letter General Adult HPI - General Chief complaint: ED Weakness Stated complaint: "bloated" Time Seen by Provider: 07/21/18 15:07 Source: patient, family Mode of arrival: ambulatory Limitations: no limitations Nursing Notes Reviewed: Yes Vital Signs Reviewed: Yes - History of Present Illness HPI Narrative: 73-year-old male with significant past medical history of COPD, hypertension and previous TIA currently on eliquis presenting to the emergency department with chief complaint of epigastric abdominal pain and overall weakness. According to the patient for the few weeks he has been progressively worsening with weakness. He has no appetite and has disclose mild nausea. He has had a previous cholecystectomy and appendectomy. Patient denies any fevers, chest pain or increase in his shortness of breath. He is not able to perform his daily activities of living due to his severe weakness. Patient denies any hematocrit emesis or blood per rectum. He does disclose a dark colored stools, almost black in color. Pain Scale: 6 - Related Data Home Medications Medication Instructions Recorded Confirmed Albuterol Sulfate [Albuterol 1 - 2 puff IH Q4HR PRN 06/26/15 06/17/18 Inhaler] Albuterol Neb [Proventil Neb] 2.5 mg IH TID PRN 07/25/17 06/17/18 Chlordiazepoxide [Librium] 25 mg PO TID PRN 07/25/17 06/17/18 Metoprolol Tartrate [Lopressor] 50 mg PO BID 07/25/17 06/17/18 Apixaban [Eliquis] 5 mg PO BID 02/02/18 06/17/18 Furosemide [Lasix] 20 mg PO DAILY 02/02/18 06/17/18 Lisinopril [Zestril] 10 mg PO DAILY 06/17/18 06/17/18 Previous Rx's Medication Instructions Recorded Potassium Chloride [K-Tab ER] 20 meq PO DAILY #30 tablet.er 07/27/17 Nicotine Patch [Nicoderm] 7 mg TD DAILY patch.td24 06/18/18 PredniSONE [Deltasone] 40 mg PO DAILY #10 tablet 06/18/18 HydrOXYzine Pamoate [Vistaril] 50 mg PO QPM #7 capsule 07/09/18 Allergies Allergy/AdvReac Type Severity Reaction Status Date / Time rivaroxaban [From Xarelto] AdvReac See Verified 07/11/18 18:29 Comments All systems ED: reviewed and negative except as stated. Constitutional: Reports: weakness. Denies: fever, chills Eyes: Reports: as per HPI ENT ED: Reports: as per HPI Cardiovascular: Denies: chest pain, palpitations, dyspnea on exertion Respiratory: Denies: cough, dyspnea, wheezes Gastrointestinal: Reports: abdominal pain, nausea, melena. Denies: vomiting Genitourinary: Reports: as per HPI Musculoskeletal: Reports: as per HPI Integumentary: Reports: as per HPI Neurological: Reports: weakness. Denies: numbness, paresthesias Psychiatric: Reports: as per HPI Endocrine: Reports: as per HPI Hematological/Lymphatic: Reports: as per HPI Allergic/Immunologic: Reports: as per HPI Past Medical History - Past Medical History Attestation: Yes The following information was validated with the patient. Medical history: Reports: asthma, cancer, CHF, COPD, CVA, hyperlipidemia, hypertension, other Surgical history: Reports: appendectomy, cholecystectomy, pacemaker/AICD Psychiatric history: Reports: no psych history - Social History Smoking Status: Light tobacco smoker Smokeless Tobacco Status: No Alcohol use: Reports: none Drug use: Reports: none Physical Exam - General Limitations: no limitations General appearance: alert, in no apparent distress - Head Head exam: atraumatic, normocephalic, normal inspection - Eye Eye exam: Present: normal appearance. Absent: scleral icterus, conjunctival injection - ENT ENT exam: mucous membranes dry - Neck Neck exam: Present: normal inspection, full ROM. Absent: tenderness, mening ismus - Chest Chest inspection: Present: normal inspection, symmetric chest wall rise. Absent: tenderness, rash - Respiratory Respiratory exam: Present: normal lung sounds bilaterally. Absent: respiratory distress, wheezes - Cardiovascular Cardiovascular exam: Present: regular rate, normal rhythm, normal heart sounds - Abdominal Exam Abdominal exam: Present: soft, tenderness. Absent: distention, guarding, rebound, rigidity Abdominal tenderness: Present: epigastrium - Extremities Exam Extremities exam: Present: normal inspection, full ROM - Neurological Exam Neurological exam: Present: alert, oriented X3 - Psychiatric Psychiatric exam: Present: normal affect, normal mood - Skin Skin exam: Present: pallor Course Course Narrative: 73-year-old male presenting for epigastric abdominal pain and weakness. Patient currently on eliquis due to previous TIA this February. During physical exam patient has severe tenderness to the epigastrium and has pallor to his skin. He is alert and oriented 3 and hemodynamically stable. Physical exam otherwise benign. At this time we will plan to perform basic laboratory analysis including troponin, EKG, CMP, lipase we will also perform a CT of the abdomen and pelvis. Stool occult testing also be completed. Disposition pending results. Patient agrees this plan. - Reevaluation(s) Reevaluation #1: Patient laboratory analysis shows positive stool occult blood. CT of the abdomen and pelvis does not show any acute abnormality. Concern for GI bleed due to use of anticoagulation and weakness. Concern for possible ulcer due to patient's epigastric pain. 80 mg of IV Protonix given and Protonix drip started. At this time will plan to admit the patient for further evaluation for his GI bleed. Patient remains alert and oriented 3 and hemodynamically stable. Patient agrees with this plan. I spoke with the hospitalist ultrasonic tester Dr. Olmedo who agrees to accept the patient at this time. Vital Signs Temperature 98.0 F 07/21/18 14:34 Pulse Rate 65 07/21/18 14:34 Respiratory Rate 16 07/21/18 14:34 Blood Pressure 145/95 07/21/18 14:34 O2 Sat by Pulse Oximetry 96 07/21/18 14:34 Temperature 98.0 F 07/21/18 14:38 Pulse Rate 60 07/21/18 16:39 Respiratory Rate 15 07/21/18 16:39 Blood Pressure 132/76 07/21/18 16:39 O2 Sat by Pulse Oximetry 98 07/21/18 16:39 Oxygen Delivery Oxygen Delivery Room Air Medical Decision Making - Lab Data Result diagrams: 07/21/18 15:14 07/21/18 15:14 Lab Results 07/21/18 07/21/18 07/21/18 Range/Units 15:14 15:14 15:14 WBC 7.9 (4.3-11.1) K/mcL RBC 4.49 (4.19-5.50) M/mcL Hgb 15.0 (12.9-16.9) g/dL Hct 43.1 (37.5-50.1) % MCV 96.0 (83.0-100.0) fL MCH 33.4 H (28.0-33.3) pg MCHC 34.8 (31.6-35.5) g/dL RDW 13.2 (11.5-14.5) % Plt Count 210 (140-400) K/mcL MPV 9.1 L (9.4-12.4) fL Immature Gran % 0.1 (0-4) % Seg Neutrophils % 64.7 % Lymphocytes % 21.7 % Monocytes % 12.6 % Eosinophils % 0.4 % Basophils % 0.5 % Neutrophils # 5.1 (1.6-8.9) K/mcL Lymphocytes # 1.7 (0.6-4.6) K/mcL Monocytes # 1.0 (0.0-1.3) K/mcL Eosinophils # 0.0 (0.0-0.6) K/mcL Basophils # 0.0 (0.0-0.2) K/mcL PT 15.0 H (9.4-12.1) Seconds INR 1.3 Sodium 130 L (136-145) mEq/L Potassium 4.1 (3.5-5.1) mEq/L Chloride 96 L (98-107) mEq/L Carbon Dioxide 28 (23-29) mEq/L BUN 13 (8-23) mg/dL Creatinine 0.97 (0.70-1.30) mg/dL Est GFR ( Amer) > 60 (> 60) Est GFR (Non-Af Amer) > 60 (> 60) BUN/Creatinine Ratio 13 (6-26) Glucose 108 H (70-105) mg/dL Calculated Osmolality 271 L (280-300) Calcium 9.7 (8.6-10.3) mg/dL Total Bilirubin 0.8 (0.3-1.0) mg/dL Direct Bilirubin 0.2 (0.0-0.2) mg/dL Indirect Bilirubin 0.6 (0.0-1.2) mg/dL AST 19 (13-39) Units/L ALT 27 (7-52) Units/L Alkaline Phosphatase 58 (34-104) Units/L Troponin I < 0.03 (< 0.04) ng/mL Serum Total Protein 6.3 L (6.4-8.9) g/dL Albumin 4.0 (3.5-5.7) g/dL Globulin 2.3 L (2.4-3.5) g/dL Albumin/Globulin Ratio 1.7 (1.1-2.2) Lipase 11 (11-82) Units/L Urine Color (Yellow) Urine Clarity (Clear) Urine pH (5.0-8.0) pH Units Ur Specific [place] (1.010-1.025) Urine Protein (Neg-Trace) mg/dL Urine Glucose (UA) (Normal) mg/dL Urine Ketones (Negative) mg/dL Urine Blood (Negative) Urine Nitrite (Negative) Urine Bilirubin (Negative) Urine Urobilinogen (Normal) mg/dL Ur Leukocyte Esterase (Negative) Ur Culture Indicated? (NO) Stool Occult Blood (Negative) 07/21/18 07/21/18 Range/Units 15:27 15:37 WBC (4.3-11.1) K/mcL RBC (4.19-5.50) M/mcL Hgb (12.9-16.9) g/dL Hct (37.5-50.1) % MCV (83.0-100.0) fL MCH (28.0-33.3) pg MCHC (31.6-35.5) g/dL RDW (11.5-14.5) % Plt Count (140-400) K/mcL MPV (9.4-12.4) fL Immature Gran % (0-4) % Seg Neutrophils % % Lymphocytes % % Monocytes % % Eosinophils % % Basophils % % Neutrophils # (1.6-8.9) K/mcL Lymphocytes # (0.6-4.6) K/mcL Monocytes # (0.0-1.3) K/mcL Eosinophils # (0.0-0.6) K/mcL Basophils # (0.0-0.2) K/mcL PT (9.4-12.1) Seconds INR Sodium (136-145) mEq/L Potassium (3.5-5.1) mEq/L Chloride (98-107) mEq/L Carbon Dioxide (23-29) mEq/L BUN (8-23) mg/dL Creatinine (0.70-1.30) mg/dL Est GFR ( Amer) (> 60) Est GFR (Non-Af Amer) (> 60) BUN/Creatinine Ratio (6-26) Glucose (70-105) mg/dL Calculated Osmolality (280-300) Calcium (8.6-10.3) mg/dL Total Bilirubin (0.3-1.0) mg/dL Direct Bilirubin (0.0-0.2) mg/dL Indirect Bilirubin (0.0-1.2) mg/dL AST (13-39) Units/L ALT (7-52) Units/L Alkaline Phosphatase (34-104) Units/L Troponin I (< 0.04) ng/mL Serum Total Protein (6.4-8.9) g/dL Albumin (3.5-5.7) g/dL Globulin (2.4-3.5) g/dL Albumin/Globulin Ratio (1.1-2.2) Lipase (11-82) Units/L Urine Color Yellow (Yellow) Urine Clarity Clear (Clear) Urine pH 7.0 (5.0-8.0) pH Units Ur Specific [place] 1.007 L (1.010-1.025) Urine Protein Negative (Neg-Trace) mg/dL Urine Glucose (UA) Normal (Normal) mg/dL Urine Ketones Negative (Negative) mg/dL Urine Blood Negative (Negative) Urine Nitrite Negative (Negative) Urine Bilirubin Negative (Negative) Urine Urobilinogen Normal (Normal) mg/dL Ur Leukocyte Esterase Negative (Negative) Ur Culture Indicated? NO (NO) Stool Occult Blood Positive A (Negative) - EKG Data EKG #1 EKG attestation: Yes I reviewed and interpreted this EKG. EKG results narrative: Electronically paced. 69 bpm. NH interval 178, QRS 191, QTC 484. No sign of acute ST segment elevation or ischemia
[2018-07-21 15:56] LABS: Troponin I < 0.03 ng/mL (< 0.04)
[2018-07-21 15:57] LABS: Alanine Aminotransferase 27 Units/L (7-52); Albumin/Globulin Ratio 1.7 (1.1-2.2); Alkaline Phosphatase 58 Units/L (34-104); Aspartate Amino Transferase 19 Units/L (13-39); BUN/Creatinine Ratio 13 (6-26); Bilirubin,Direct 0.2 mg/dL (0.0-0.2); Bilirubin,Indirect 0.6 mg/dL (0.0-1.2); Bilirubin,Total 0.8 mg/dL (0.3-1.0); Blood Urea Nitrogen 13 mg/dL (8-23); Calcium 9.7 mg/dL (8.6-10.3); Carbon Dioxide 28 mEq/L (23-29); Chloride 96 mEq/L (98-107); Globulin 2.3 g/dL (2.4-3.5); Glucose 108 mg/dL (70-105); Lipase 11 Units/L (11-82); Osmolality,Calculated 271 (280-300); Potassium 4.1 mEq/L (3.5-5.1); Sodium 130 mEq/L (136-145); Total Protein 6.3 g/dL (6.4-8.9); eGFR For Non-African Americans > 60 (> 60)
[2018-07-21 16:02] LABS: INR 1.3
[2018-07-21 16:02] LABS: Bilirubin,Urine Negative (Negative); Blood,Urine Negative (Negative); Clarity,Urine Clear (Clear); Color,Urine Yellow (Yellow); Glucose,Urine (UA) Normal (Normal); Ketones,Urine Negative (Negative); Leukocyte Esterase,Urine Negative (Negative); Nitrite,Urine Negative (Negative); Protein,Urine Negative (Neg-Trace); Specific Gravity,Urine 1.007 (1.010-1.025); Urobilinogen,Urine Normal (Normal)
[2018-07-21] MEDS ORDERED: Pantoprazole 40 MG VIAL IVP ONE (16:21)
[2018-07-21] MEDS ORDERED: 0.9 % Sodium Chloride 1,000 ML IVC SCH (16:30)
[2018-07-21] MEDS: Pantoprazole 40 MG in 0.9 % Sodium Chloride Mini Bag 100 ML IVC SCH ×2 (16:34→21:37)
--- NOTE | 2018-07-21 17:14 | Internal Med History&Physical ---
Date of Encounter: 07/21/18 Time of Encounter: 17:11 Internal Medicine - H&P: HPI Chief complaint: weakness, black stools Admitted From: Emergency Dept Plans for Post Hospital Care: Home History of present illness: Mr. Stafford is a 73 year old male Patient with history of hypertension, severe COPD, congestive heart failure, smoking history, high cholesterol, has a pacemaker, TIA and on and eliquis patient presented emergency room due to epigastric pain , generalized progressive weakness nausea but no vomiting also had noted some dark stool or black stool in the last 2 weeks no vomiting blood also has poor appetite and emergency room evaluation CT of the abdomen was unremarkable except for diverticulosis was also heme-positive been admitted for GI evaluation hemoglobin is 15 hemodynamically stable denies any chest pain Past Med Surg Social Fam HX - Past Medical History Medical history: asthma, cancer, CHF, COPD, CVA, hyperlipidemia, hypertension, other Additional medical history: pacemaker Psychiatric history: no psych history - Past Surgical History Surgical History: appendectomy, cholecystectomy, pacemaker/AICD Additional surgical history: Skin CA removal, Pacemaker - Social History Smoking Status: Light tobacco smoker Smokeless Tobacco Status: No Alcohol use: none Drug use: none - Family History Mother Hx Family Neurologic Disorders: Yes (CVA) Father Hx Family Cancer: Yes Brother Hx Family Cancer: Yes Sister Hx Family Cancer: Yes (Pancreatic) Internal Medicine - H&P: Meds Albuterol Sulfate [Albuterol Inhaler] 1 - 2 puff IH Q4HR PRN 06/26/15 [History] Albuterol Neb [Proventil Neb] 2.5 mg IH TID PRN 07/25/17 [History] Chlordiazepoxide [Librium] 25 mg PO TID PRN 07/25/17 [History] Metoprolol Tartrate [Lopressor] 50 mg PO BID 07/25/17 [History] Potassium Chloride [K-Tab ER] 20 meq PO DAILY #30 tablet.er 07/27/17 [Rx] Apixaban [Eliquis] 5 mg PO BID 02/02/18 [History] Furosemide [Lasix] 20 mg PO DAILY 02/02/18 [History] Lisinopril [Zestril] 10 mg PO DAILY 06/17/18 [History] Nicotine Patch [Nicoderm] 7 mg TD DAILY patch.td24 06/18/18 [Rx] PredniSONE [Deltasone] 40 mg PO DAILY #10 tablet 06/18/18 [Rx] HydrOXYzine Pamoate [Vistaril] 50 mg PO QPM #7 capsule 07/09/18 [Rx] Allergy/AdvReac Type Severity Reaction Status Date / Time rivaroxaban [From Xarelto] AdvReac See Verified 07/11/18 18:29 Comments All Systems PM: A 10-system review of systems was performed and is negative for pertinent findings except as documented above in the HPI. - Constitutional Vitals: Temp Pulse Resp BP Pulse Ox 98.0 F 60 15 132/76 98 07/21/18 14:38 07/21/18 16:39 07/21/18 16:39 07/21/18 16:39 07/21/18 16:39 General appearance: Present: mild distress Exam: done - Eye Eye exam: Present: PERRL, conjuntiva pink, sclera anicteric Pupils: Present: PERRL - Respiratory Respiratory exam: Present: decreased breath sounds, rhonchi - Cardiovascular Cardiovascular exam: Present: RRR, +S1, +S2. Absent: diastolic murmur, gallop, rubs, systolic murmur - GI/Abdominal GI/Abdominal exam: Present: normal bowel sounds, soft, no peritoneal signs. Absent: distended, tenderness - Extremities Exam Extremities exam: Present: warm, radial pulses palpable and symmetrical. Absent: calf tenderness, cyanotic, pedal edema Internal Med - H&P Results - Labs CBC & Chem 7: 07/21/18 15:14 07/21/18 15:14 Labs: Short CBC 07/21/18 Range/Units 15:14 WBC 7.9 (4.3-11.1) K/mcL Hgb 15.0 (12.9-16.9) g/dL Hct 43.1 (37.5-50.1) % Plt Count 210 (140-400) K/mcL Neutrophils # 5.1 (1.6-8.9) K/mcL BMP 07/21/18 15:14 Sodium 130 L Potassium 4.1 Chloride 96 L Carbon Dioxide 28 BUN 13 Creatinine 0.97 Glucose 108 H Calcium 9.7 Cardiac Enzymes 07/21/18 Range/Units 15:14 Troponin I < 0.03 (< 0.04) ng/mL Liver Function 11/14/18 Range/Units 15:14 Total Bilirubin 0.8 (0.3-1.0) mg/dL Direct Bilirubin 0.2 (0.0-0.2) mg/dL AST 19 (13-39) Units/L ALT 27 (7-52) Units/L Alkaline Phosphatase 58 (34-104) Units/L Albumin 4.0 (3.5-5.7) g/dL Urine 07/21/18 Range/Units 15:37 Urine Color Yellow (Yellow) Urine Clarity Clear (Clear) Urine pH 7.0 (5.0-8.0) pH Units Ur Specific [place] 1.007 L (1.010-1.025) Urine Protein Negative (Neg-Trace) mg/dL Urine Glucose (UA) Normal (Normal) mg/dL - Impressions ITS Impressions Chest X-Ray 07/21/18 14:37 IMPRESSION: 1. No acute cardiopulmonary disease. D/ / Josse Garcia MD / Josse Garcia MD Interpreting Provider: Josse Garcia MD Abdomen/Pelvis CT 07/21/18 15:18 IMPRESSION: No acute abnormality identified in the abdomen or pelvis. Diverticulosis without cassidy evidence of diverticulitis. Moderate prostatomegaly. D/ / 07/21/2018 16:29:10 Brooks Lo[facility]iza MD / [facility] Interpreting Provider: Brooks Loaiza MD - Assessment and plan (1) Epigastric abdominal pain Current Visit: Yes Status: Acute Assessment and plan: Patient may likely has gastric ulcer or gastritis leading to upper GI bleed (2) Upper GI bleed Current Visit: Yes Status: Acute Assessment and plan: Patient hemoglobin 15 hemodynamically stable we will consult GI and keep nothing by mouth after midnight (3) Weakness Current Visit: Yes Status: Acute Assessment and plan: Generalized weakness is out of proportion to level of hemoglobin will consult PT and OT (4) COPD (chronic obstructive pulmonary disease) Current Visit: No Status: Acute Assessment and plan: Patient has severe COPD we will resume his home medication no active wheezing Qualifiers: COPD type: unspecified COPD Qualified Code(s): J44.9 - Chronic obstructive pulmonary disease, unspecified (5) HTN (hypertension) Current Visit: No Status: Chronic Assessment and plan: Chronic and well controlled Qualifiers: Hypertension type: essential hypertension Qualified Code(s): I10 - Ess ential (primary) hypertension (6) Paroxysmal atrial fibrillation Current Visit: No Status: Chronic Assessment and plan: Patient is on Lopressor which will hold for now because of GI bleeding and place on telemetry (7) Tobacco abuse Current Visit: No Status: Chronic Assessment and plan: Chronic - Time Spent With Patient Total time spent is greater than 50% in coordination of care (as documented) at patient's floor/unit and/or counseling patient:
[2018-07-21] MEDS ORDERED: Naloxone 0.4 MG/ML INJ IVP PRN (17:18)
[2018-07-21] MEDS ORDERED: Acetaminophen 325 MG TABLET PO PRN (17:18)
[2018-07-21] MEDS ORDERED: Albuterol 2.5 MG/3 ML NEBULIZER IH PRN (17:21)
[2018-07-21] MEDS: hydrOXYzine pamoate 25 MG CAPSULE PO SCH (20:23)
[2018-07-21] MEDS: Ipratropium/Albuterol Neb 3 ML IH PRN (21:25)
[2018-07-22] MEDS: Pantoprazole 40 MG in 0.9 % Sodium Chloride Mini Bag 100 ML IVC SCH ×5 (02:39→23:27)
[2018-07-22] MEDS: Ipratropium/Albuterol Neb 3 ML IH PRN (03:40)
[2018-07-22 07:46] LABS: Basophils % 0.7 %; Eosinophils # 0.1 K/mcL (0.0-0.6); Eosinophils % 1.3 %; Hematocrit 40.9 % (37.5-50.1); Hemoglobin 13.9 g/dL (12.9-16.9); Immature Granulocytes % 0.2 % (0-4); Lymphocytes # 1.9 K/mcL (0.6-4.6); Lymphocytes % 30.4 %; Mean Corpuscular Volume 97.1 fL (83.0-100.0); Mean Platelet Volume 9.6 fL (9.4-12.4); Monocytes # 0.8 K/mcL (0.0-1.3); Monocytes % 13.5 %; Neutrophils # 3.3 K/mcL (1.6-8.9); Platelet Count 192 K/mcL (140-400); Red Blood Count 4.21 M/mcL (4.19-5.50); Red Cell Distribution Width 13.2 % (11.5-14.5); Segmented Neutrophils % 53.9 %
[2018-07-22 08:02] LABS: Chol/HDL Ratio 1.8 (0-4.9); Magnesium 1.8 mg/dL (1.6-2.6)
[2018-07-22] MEDS: Nicotine 7 MG PATCH.TD24 TD SCH (08:44)
[2018-07-22] MEDS: predniSONE 20 MG TABLET PO SCH (08:44)
[2018-07-22] MEDS ORDERED: Pantoprazole 40 MG VIAL IVP SCH (09:00)
--- NOTE | 2018-07-22 11:16 | Internal Med Progress Note ---
Hospitalist Progress Note - Encounter Date of Encounter: 07/22/18 Time of Encounter: 11:14 - Subjective Interval History: Patient seen and examined GI consult evaluation pending the patient is nothing by mouth for possible endoscopy today remained hemodynamically stable - Exam Vitals: Temp Pulse Resp BP Pulse Ox 98.0 F 69 14 160/83 92 07/22/18 10:12 07/22/18 10:12 07/22/18 10:12 07/22/18 10:12 07/22/18 10:12 Exam: done - Assessment and Plan (1) Epigastric abdominal pain Current Visit: Yes Status: Acute Assessment and Plan: likley gastritis vs gastric ulcer GI evaluation pending [place] EGD today (2) Upper GI bleed Current Visit: Yes Status: Acute Assessment and Plan: ghb stable down n1 gm which is likely from hydration (3) Weakness Current Visit: Yes Status: Acute Assessment and Plan: generalized PT and OT in place (4) COPD (chronic obstructive pulmonary disease) Current Visit: No Status: Acute Assessment and Plan: resumed home meds no active wheezing (5) HTN (hypertension) Current Visit: No Status: Chronic Assessment and Plan: continue on home meds (6) Paroxysmal atrial fibrillation Current Visit: No Status: Chronic Assessment and Plan: current ly in sinus (7) Tobacco abuse Current Visit: No Status: Chronic - Time Spent with Patient Total time spent is greater than 50% in coordination of care (as documented) at patient's floor/unit and/or counseling patient: Internal Medicine: Result - Labs CBC & Chem 7: 07/22/18 06:38 07/21/18 15:14 Labs: Short CBC 07/21/18 07/22/18 Range/Units 15:14 06:38 WBC 7.9 6.1 (4.3-11.1) K/mcL Hgb 15.0 13.9 (12.9-16.9) g/dL Hct 43.1 40.9 (37.5-50.1) % Plt Count 210 192 (140-400) K/mcL Neutrophils # 5.1 3.3 (1.6-8.9) K/mcL BMP 07/21/18 15:14 Sodium 130 L Potassium 4.1 Chloride 96 L Carbon Dioxide 28 BUN 13 Creatinine 0.97 Glucose 108 H Calcium 9.7 Cardiac Enzymes 11/14/18 Range/Units 15:14 Troponin I < 0.03 (< 0.04) ng/mL Liver Function 07/21/18 Range/Units 15:14 Total Bilirubin 0.8 (0.3-1.0) mg/dL Direct Bilirubin 0.2 (0.0-0.2) mg/dL AST 19 (13-39) Units/L ALT 27 (7-52) Units/L Alkaline Phosphatase 58 (34-104) Units/L Albumin 4.0 (3.5-5.7) g/dL Urine 07/21/18 Range/Units 15:37 Urine Color Yellow (Yellow) Urine Clarity Clear (Clear) Urine pH 7.0 (5.0-8.0) pH Units Ur Specific [place] 1.007 L (1.010-1.025) Urine Protein Negative (Neg-Trace) mg/dL Urine Glucose (UA) Normal (Normal) mg/dL - ABG Interpretation ABG results: PT/INR, D-dimer PT 15.0 Seconds (9.4-12.1) H 07/21/18 15:14 - Impressions Impressions Chest X-Ray 07/21/18 14:37 IMPRESSION: 1. No acute cardiopulmonary disease. D/ / Josse Garcia MD / Josse Garcia MD Interpreting Provider: Josse Garcia MD Abdomen/Pelvis CT 07/21/18 15:18 IMPRESSION: No acute abnormality identified in the abdomen or pelvis. Diverticulosis without cassidy evidence of diverticulitis. Moderate prostatomegaly. D/ / 07/21/2018 16:29:10 Brooks Loaiza MD / [facility] Interpreting Provider: Brooks Loaiza MD Consult Discharge Plan - Plan Referrals: Marivel Vivar, R[employer] AND MISCELLANEOUS REMITTANCE CLERK [Primary Care Provider] - (4) COPD (chronic obstructive pulmonary disease) Qualifiers: COPD type: unspecified COPD Qualified Code(s): J44.9 - Chronic obstructive p ulmonary disease, unspecified (5) HTN (hypertension) Qualifiers: Hypertension type: essential hypertension Qualified Code(s): I10 - Essential (primary) hypertension
--- NOTE | 2018-07-22 11:29 | Gastroenterology Consult Note ---
<Sho Carreno - Last Filed: 07/22/18 11:25> Date of Encounter: 07/22/18 Time of Encounter: 09:45 - Assessment and plan (1) Melena Current Visit: Yes Status: Acute Assessment and plan: Pt admits to melena for the past 2-3 weeks, epigastric pain and nausea. He denies GERD. Hgb is stable. Will plan for EGD today to rule out esophagitis, gastritis, duodenitis, PUD, MW tear, or avm. Continue PPI, monitor H&h. (2) Weakness Current Visit: Yes Status: Acute (3) Epigastric abdominal pain Current Visit: Yes Status: Acute - Time Spent With Patient Total time spent is greater than 50% in coordination of care (as documented) at patient's floor/unit and/or counseling patient: GI History of Present Illness - Data of Consult Patient: new to practice Consult date: 07/22/18 Requesting Physician: Jossue Olmedo MD - Consult Narrative Reason for consult: melena History of present illness: Mr. Stafford is a 73 year old male Patient with history of hypertension, severe COPD, congestive heart failure, smoking history, high cholesterol, has a pacemaker, TIA and on and eliquis. He presented to the emergency room due to epigastric pain , generalized progressive weakness, nausea but no vomiting, and black stools for the past 2 weeks. He also reports poor appetite. CT of the abdomen was unremarkable except for diverticulosis was also heme-positive. Hemog lobin is 15. He denies any bright red rectal bleeding or diarrhea. He admits to constipation and has been taking stool softeners. He denies GERD, or dysphagia. EGD/colonoscopy: denies nsaids: denies anticoagulants: eliquis last dose 07/20 Past Med Surg Social Fam HX - Past Medical History Medical history: asthma, cancer, CHF, COPD, CVA, hyperlipidemia, hypertension, other Additional medical history: pacemaker Psychiatric history: no psych history - Past Surgical History Surgical History: appendectomy, cholecystectomy, pacemaker/AICD Additional surgical history: Skin CA removal, Pacemaker - Social History Smoking Status: Light tobacco smoker Smokeless Tobacco Status: No Alcohol use: none Drug use: none - Family History Mother Hx Family Neurologic Disorders: Yes (CVA) Father Hx Family Cancer: Yes Brother Hx Family Cancer: Yes Sister Hx Family Cancer: Yes (Pancreatic) Review of Systems: GI: as per [place] [facility]: denies fever, has some chills EYES: denies yellow discoloration ENT: denies pain with swallowing or difficulty swallowing CARDIO: denies chest pain, palpitations RESP: Shortness of breath with exertion : denies change in color of urine NEURO: weakness HEME: Denies any bruising MS: chronic back and joint pain. DERM: denies rash or itching PSYCH: history of anxiety - Constitutional Vitals: Temp Pulse Resp BP Pulse Ox 98.0 F 69 14 160/83 92 07/22/18 10:12 07/22/18 10:12 07/22/18 10:12 07/22/18 10:12 07/22/18 10:12 Exam: CONSTITUTIONAL:alert, no acute distress, very anxious.HEAD:normocepha lic.EYES:no jaundice.NECK:no obvious swelling.HEART:regular rate and rhythm, no murmurs.LUNGS:bilateral fair air entry.ABDOMEN:non distended, soft, non tender, no masses palpable, no organomegaly.RECTAL EXAM:Deferred.EXTREMITIES:no clubbing, cyanosis or edema.SKIN:no stigmata of chronic liver disease.NEUROLOGIC:no obvious focal defect. Results - Labs CBC & Chem 7: 07/22/18 06:38 07/21/18 15:14 Labs: Last Result Calcium 9.7 mg/dL (8.6-10.3) 07/21/18 15:14 Troponin I < 0.03 ng/mL (< 0.04) 07/21/18 15:14 Triglycerides 53 mg/dL (< 150) 07/22/18 06:38 Stool Occult Blood Positive (Negative) A 07/21/18 15:27 Entire Visit Hgb 13.9 g/dL (12.9-16.9) 07/22/18 06:38 Hct 40.9 % (37.5-50.1) 07/22/18 06:38 PT 15.0 Seconds (9.4-12.1) H 07/21/18 15:14 Total Bilirubin 0.8 mg/dL (0.3-1.0) 07/21/18 15:14 AST 19 Units/L (13-39) 07/21/18 15:14 ALT 27 Units/L (7-52) 07/21/18 15:14 Lipase 11 Units/L (11-82) 07/21/18 15:14 - ABG ABG results: PT/INR, D-dimer PT 15.0 Seconds (9.4-12.1) H 07/21/18 15:14 - Impressions Impressions Chest X-Ray 07/21/18 14:37 IMPRESSION: 1. No acute cardiopulmonary disease. D/ / Josse Garcia MD / Josse Garcia MD Interpreting Provider: Josse Garcia MD Abdomen/Pelvis CT 07/21/18 15:18 IMPRESSION: No acute abnormality identified in the abdomen or pelvis. Diverticulosis without cassidy evidence of diverticulitis. Moderate prostatomegaly. D/ / 07/21/2018 16:29:10 Brooks Loaiza MD / [facility] Interpreting Provider: Brooks Loaiza MD Consult Discharge Plan - Plan Referrals: Marivel Vivar CNP [Primary Care Provider] - <Jeremy Alvares - Last Filed: 07/22/18 22:16> Date of Encounter: 07/22/18 Time of Encounter: 18:00 - Time Spent With Patient Total time spent is greater than 50% in coordination of care (as documented) at patient's floor/unit and/or counseling patient: GI History of Present Illness - Data of Consult Requesting Physician: Jossue Olmedo MD - Consult Narrative History of present illness: Mr. Stafford is a 73 year old male - Constitutional Vitals: Temp Pulse Resp BP Pulse Ox 97.7 F 65 16 148/78 91 07/22/18 18:34 07/22/18 18:34 07/22/18 20:16 07/22/18 18:34 07/22/18 20:16 Results - Labs CBC & Chem 7: 07/22/18 06:38 07/21/18 15:14 Labs: Last Result Calcium 9.7 mg/dL (8.6-10.3) 07/21/18 15:14 Troponin I < 0.03 ng/mL (< 0.04) 07/21/18 15:14 Triglycerides 53 mg/dL (< 150) 07/22/18 06:38 Stool Occult Blood Positive (Negative) A 07/21/18 15:27 Entire Visit Hgb 13.9 g/dL (12.9-16.9) 07/22/18 06:38 Hct 40.9 % (37.5-50.1) 07/22/18 06:38 PT 15.0 Seconds (9.4-12.1) H 07/21/18 15:14 Total Bilirubin 0.8 mg/dL (0.3-1.0) 07/21/18 15:14 AST 19 Units/L (13-39) 07/21/18 15:14 ALT 27 Units/L (7-52) 07/21/18 15:14 Lipase 11 Units/L (11-82) 07/21/18 15:14 - ABG ABG results: PT/INR, D-dimer PT 15.0 Seconds (9.4-12.1) H 07/21/18 15:14 - Attending Attestation I have personally performed a face to face evaluation on this patient. I have reviewed and agree with the care plan. History and Exam by me shows: Pt seen. Pt complaints of bloating. O/E Abd non tanderness. A: Pt with melena. Rec: EGD
[2018-07-22] MEDS: hydrOXYzine pamoate 25 MG CAPSULE PO SCH (17:29)
[2018-07-22] MEDS ORDERED: *HR* FentaNYL (PF) 100 MCG/2 ML VIAL ONE (17:56)
[2018-07-22] MEDS ORDERED: *HR* Midazolam HCl 5 MG/5 ML VIAL IVP ONE ×2 (17:56→17:57)
[2018-07-22] MEDS ORDERED: *HR* FentaNYL (PF) 100 MCG/2 ML VIAL IVP ONE (17:57)
[2018-07-22] MEDS ORDERED: Tetracaine/Benzocaine/Butamben 1 SPRAY AEROSOL MM ONE (17:57)
[2018-07-22] MEDS ORDERED: Simethicone 40 MG/0.6 ML MLS IR ONE (17:57)
--- NOTE | 2018-07-22 17:57 | Pre-Sedation Evaluation ---
Pre-sedation evaluation - Pre-sedation checklist Date of procedure: 07/22/18 Procedure: egd Recent Vitals: Last Vital Signs Temp 97.5 F L 07/22/18 17:50 Pulse 70 07/22/18 17:50 Resp 20 07/22/18 17:50 BP 157/92 07/22/18 17:50 Pulse Ox 93 07/22/18 17:50 H&P (including ROS) documented in medical record: Yes Previous reaction to sedatives/anesthetics: No Dietary Status: NPO after Midnight Dentition: No loose teeth or bridges ASA Classification *see protocol: CLASS III-Severe systemic disease Plan of Care: Pt appropriate candidate for procedure/moderate/conscious sedation, Risks/benefits of procedure/sedation discussed w/ patient/family
[2018-07-22] MEDS: clonazePAM 1 MG TABLET PO SCH (19:49)
[2018-07-22] MEDS: Budesonide/Formoterol 160/4.5 1 PUFF INH IH SCH (20:16)
[2018-07-22] MEDS ORDERED: traZODone 50 MG TABLET PO SCH (21:00)
[2018-07-23] MEDS: Pantoprazole 40 MG in 0.9 % Sodium Chloride Mini Bag 100 ML IVC SCH ×2 (04:06→09:09)
[2018-07-23] MEDS: Budesonide/Formoterol 160/4.5 1 PUFF INH IH SCH (07:38)
[2018-07-23] MEDS: Ipratropium/Albuterol Neb 3 ML IH PRN (07:41)
[2018-07-23 08:51] VITALS: BP 131/71
[2018-07-23] MEDS ORDERED: Furosemide 20 MG TABLET PO SCH (09:00)
[2018-07-23] MEDS: clonazePAM 1 MG TABLET PO SCH (09:08)
[2018-07-23] MEDS: predniSONE 20 MG TABLET PO SCH (09:09)
[2018-07-23] MEDS: Nicotine 7 MG PATCH.TD24 TD SCH (09:09)
--- NOTE | 2018-07-23 10:22 | Discharge Summary ---
Orders not resulted at time of discharge: Pending orders 07/22/18 18:25 Surgical Pathology [PTH] Routine Date of Encounter: 07/23/18 Time of Encounter: 10:19 - Discharge Diagnosis (1) Epigastric abdominal pain Priority: Secondary Status: Acute Assessment and Plan: Resolved (2) Upper GI bleed Priority: Primary Status: Acute Assessment and Plan: Underwent EGD yesterday showing gastritis no active bleeding patient with discharge and protonic 40 mg once a day and follow primary physician (3) Weakness Priority: Secondary Status: Acute (4) COPD (chronic obstructive pulmonary disease) Priority: Secondary Status: Chronic Assessment and Plan: No active wheezing will continue home medications Qualifiers: COPD type: unspecified COPD Qualified Code(s): J44.9 - Chronic obstructive pulmonary disease, unspecified (5) HTN (hypertension) Priority: Secondary Status: Chronic Assessment and Plan: Chronic and well controlled Qualifiers: Hypertension type: essential hypertension Qualified Code(s): I10 - Essential (primary) hypertension (6) Paroxysmal atrial fibrillation Priority: Secondary Status: Chronic Assessment and Plan: Currently in normal sinus rhythm (7) Tobacco abuse Priority: Secondary Status: Chronic Hospital course: Mr. Stafford is a 73 year old male Patient with history of hypertension, COPD, CHF, smoking history, high cholesterol, pacemaker, TIA on and liquids patient was admitted with epigastric pain generalized weakness has some dark stool admitted with GI bleed underwent EGD yesterday showing gastritis no active bleeding patient will be discharged home today we will resume his home medication hemoglobin has been stable and put him on Protonix 40 mg once a day follow-up with his primary physician as an outpatient. - Time Spent with Patient Total time spent providing and/or coordinating discharge services: Greater than 30 minutes - Discharge Medications Prescriptions: Pantoprazole Sodium [Protonix] 40 mg PO DAILY #30 tablet. Home Medications: Albuterol Sulfate [Albuterol Inhaler] 1 - 2 puff IH Q4HR PRN 06/26/15 [History] Albuterol Neb [Proventil Neb] 2.5 mg IH TID PRN 07/25/17 [History] Chlordiazepoxide [Librium] 25 mg PO TID PRN 07/25/17 [History] Metoprolol Tartrate [Lopressor] 50 mg PO BID 07/25/17 [History] Potassium Chloride [K-Tab ER] 20 meq PO DAILY #30 tablet.er 07/27/17 [Rx] Apixaban [Eliquis] 5 mg PO BID 02/02/18 [History] Furosemide [Lasix] 20 mg PO DAILY 02/02/18 [History] Lisinopril [Zestril] 5 mg PO DAILY 06/17/18 [History] HydrOXYzine Pamoate [Vistaril] 50 mg PO QPM #7 capsule 07/09/18 [Rx] Budesonide/Formoterol 160/4.5 [Symbicort 160/4.5] 2 puff IH BIDR 07/21/18 [History] Escitalopram Oxalate 5 mg PO DAILY 07/21/18 [History] Levalbuterol Neb [Xopenex Neb] 1.25 mg IH Q8H 07/21/18 [History] Lisinopril [Zestril] 5 mg PO DAILY 07/21/18 [History] Trazodone HCl 100 mg PO HS 07/21/18 [History] clonazePAM [Klonopin] 1 mg PO BID 07/21/18 [History] Pantoprazole Sodium [Protonix] 40 mg PO DAILY #30 tablet. 07/23/18 [Rx] Allergies/Adverse Reactions: Allergy/AdvReac Type Severity Reaction Status Date / Time rivaroxaban [From Xarelto] AdvReac See Verified 07/11/18 18:29 Comments Date of admission: 07/22/18 13:49 Primary care physician: Marivel Vivar Consults: 07/21/18 17:24 Consult to Gastroenterology [CONS] Routine Consulting Provider: Gastroenterology Niki Reason for Consult: gi bleed Time Notified: 17:24 Call Completed: No 07/21/18 17:25 PT [Consult to Physical Therapy] [CONS] Routine Comment: Evaluate, develop and implement POC Reason for Consult: evaluate and treat Does patient have active BEDREST order?: No Is patient medically & hemodynamically stable?: Yes 07/21/18 17:26 OT [Consult to Occupational Therapy] [CONS] Routine Comment: Evaluate, develop and implement POC Reason for Consult: evaluate and treat Does patient have active BEDREST order?: No Is patient medically & hemodynamically stable?: Yes Discharging clinician: Sindy Bradford Anticipated date of discharge: 07/23/18 - Constitutional Vitals: Temp Pulse Resp BP Pulse Ox 98.4 F 64 15 131/71 93 07/23/18 08:48 07/23/18 08:48 07/23/18 08:48 07/23/18 08:48 07/23/18 08:48 General appearance: Present: mild distress Exam: done - Patient Status Disposition: Home, Self-Care Condition: Good Functional capacity at discharge: independent ambulation Overall status at discharge: patient is back to baseline - Discharge Instructions Follow Up With: Marivel Vivar CNP [Primary Care Provider] - - Diet and Activity Activity: other Diet: advance to your usual diet
--- NOTE | 2018-07-25 09:28 | Electrocardiograph Report ---
[place] [id number] Test Date: 2018-07-21 Pat Name: Иван [facility] Department: 104 Room: 3A Gender: M Audit Consultant: JUAN : 1945 Requested By: Jesus Souza Order Number: [id number] Reading MD: Yolanda Bautista Measurements Intervals [place] Rate: 69 P: 102 NC: 178 QRS: -83 QRSD: 191 T: 91 QT: 465 QTc: 484 Interpretive Statements ELECTRONIC ATRIAL PACEMAKER ELECTRONIC VENTRICULAR PACEMAKER ABNORMAL RHYTHM ECG Electronically Signed On 07-25-2018 9:27:19 EST by Yolanda Bautista
== END 2018-07-23 13:45 | disposition home or self-care (01) | DRG 392 ==
LOC: EMEROOARM 14:31 → 3ANU 14:31
PROVIDERS: ADMIT Internal Medicine; ATTEND Internal Medicine
PROC: ENDOEBX (2018-07-22 15:00)

== ENCOUNTER 2019-05-18 13:46 | Inpatient (IN) ==
--- NOTE | 2019-05-18 16:23 | Internal Med History&Physical ---
Date of Encounter: 05/18/19 Time of Encounter: 16:23 Internal Medicine - H&P: HPI Chief complaint: shortness of breath Admitted From: Intrahospital Transfer Plans for Post Hospital Care: Home History of present illness: Mr. Stafford is a 74 year old male with past medical history of atrial fibrillation, COPD, bradycardia status post pacemaker, hypertension, history of GI bleed, was transferred from another hospital for further management due to elevated troponin levels. Patient has been having the difficulty breathing for past 6-7 days. He complains of increased cough for the past 4-5 days along with white expectoration. Denies any fevers however mentioned he had chills at home. Denies any chest pain abdominal pain nausea vomiting lightheadedness or palpitation. Patient has been having decreased appetite for past few days. He also mentioned urinary incontinence that started when he started having increased cough and shortness of breath. Denies any burning urination. He has history of C. difficile from last year. Denies any recent antibiotic use. Denies any sick contacts or travel. Past Med Surg Social Fam HX - Past Medical History Medical history: asthma, atrial fibrillation, cancer, CHF, COPD, CVA, GI bleed, hyperlipidemia, hypertension, other Additional medical history: skin cancer Psychiatric history: anxiety, depression - Past Surgical History Surgical History: appendectomy, cancer surgery, cholecystectomy, pacemaker/AICD Additional surgical history: Skin CA removal, Pacemaker - Social History Smoking Status: Current every day smoker Smokeless Tobacco Status: No Alcohol use: none Drug use: none - Family History Son Adopted: No Family Member Ethnicity: Non- Living Status: Still Living Hx Family Cardiac Disorders: No Hx Family Respiratory Disorders: No Hx Family Cancer: No Hx Family GI Disorders: No Hx Family Endocrine Disorder: No Hx Family Neuromuscular Disorders: No Hx Family Neurologic Disorders: No Hx Family HEENT Disorders: No Hx Family Autoimmune Disorders: No Mother Hx Family Neurologic Disorders: Yes (CVA) Sister Hx Family Cancer: Yes (Pancreatic) Father Hx Family Cancer: Yes Brother Hx Family Cancer: Yes Internal Medicine - H&P: Meds Apixaban [Eliquis] 5 mg PO BID 02/02/18 [History] Furosemide [Lasix] 20 mg PO QMWF 02/02/18 [History] Isosorbide MONOnitrate (24 HR) [Imdur] 30 mg PO DAILY 365 Days tab.er.24h 01/11/19 [Rx] Metoprolol [Lopressor] 25 mg PO BID tablet 01/11/19 [Rx] Albuterol Neb [AccuNeb] mg IH Q4H 05/18/19 [History] Pantoprazole Sodium [Protonix] 40 mg PO DAILY 05/18/19 [History] Potassium Chloride [K-Tab ER] 1 meq PO QMWF 05/18/19 [History] hydrOXYzine HCl [Hydroxyzine HCl] 50 mg PO HS 05/18/19 [History] risperiDONE [Risperdal] 1 mg PO DAILY 05/18/19 [History] Allergy/AdvReac Type Severity Reaction Status Date / Time rivaroxaban [From Xarelto] AdvReac See Verified 07/11/18 18:29 Comments All Systems PM: A 10-system review of systems was performed and is negative for pertinent findings except as documented above in the HPI. - Constitutional Vitals: Temp Pulse Resp BP Pulse Ox 98.7 F 89 18 132/74 91 05/18/19 16:11 05/18/19 16:11 05/18/19 16:11 05/18/19 16:11 05/18/19 16:11 Exam: Constitutional: Vitals as noted. Conversant. coughing, elderly frail Eyes : Sclera white, conjunctiva clear, no lid lag, [place]. ENT : Grossly normal hearing. Oropharyngeal exam unremarkable. Moist mucus membranes. No JVD, no cervical lymphadenopathy. no thyromegaly or mass. Respiratory : tachypnic, No accessory muscle use, diffuse expiratory wheezing. Cardiovascular : RRR, +S1, +S2. no murmur, gallop, rubs. No chest wall tenderness GI/Abdominal : Soft, Non-tender, Non-distended, normal bowel sounds, no peritoneal signs. no orgenomegaly or mass appreciated. no hernia. Musculoskeletal: no deformity noted. 1+ edema b/l ankle. warm extremities, pulses palpable and symmetrical in UE/LE. no calf tenderness. Neurological: AO X3, CN II-XII grossly intact, grossly normal motor and sensory exam. Skin: No skin rash, lesions or ulcers noted. - Assessment and Plan (1) Community acquired pneumonia Current Visit: No Status: Acute Assessment and plan: Patient with elevated wbc, multifocal infiltrate on CXR and increased cough and sputum production Will continue ceftraixone and azithromycin along with bronchodilators Obtain sputum and blood cultures Obtain respiratory infectious panel, urine legionella and pneumococcal antigen Qualifiers: Lung location: unspecified part of lung Qualified Code(s): J18.9 - Pne umonia, unspecified organism (2) Acute exacerbation of chronic obstructive airways disease Current Visit: No Status: Acute Assessment and plan: Likely precipitated by CAP Start patient on solumedrol along with bronchodilators (3) Afib Current Visit: Yes Status: Acute Assessment and plan: Patient currently in paced rhythm. Continue home eliquis and metoprolol Qualifiers: Atrial fibrillation type: chronic Qualified Code(s): I48.2 - Chronic atrial fibrillation (4) DVT prophylaxis Current Visit: No Status: Acute Assessment and plan: on eliquis (5) Elevated troponin Current Visit: No Status: Acute Assessment and plan: Likely demand ischemia with CAP and COPD exacerbation No chest pain. EKG with paced rhythm. Will trend troponin and obtain ECHO. Will obtain [facility] report done recently at [facility]. Depending on workup will consider cardiology consult (6) CHF (congestive heart failure) Current Visit: No Status: Chronic Assessment and plan: Does not appear to be in volume overload Resume home metoprolol. Hold home lasix for now. Does not appear to be on aspirin or statin. Will confirm with pharmacy. Qualifiers: Heart failure type: combined systolic and diastolic Heart failure chronicity: unspecified Qualified Code(s): I50.40 - Unspecified combined systolic (congestive) and diastolic (congestive) heart failure (7) HTN (hypertension) Current Visit: No Status: Chronic Assessment and plan: Continue home metoprolol for now Qualifiers: Hypertension type: essential hypertension Qualified Code(s): I10 - Essential (primary) hypertension (8) Tobacco abuse Current Visit: No Status: Chronic Assessment and plan: Discussed smoking cessation.
[2019-05-18] MEDS ORDERED: Ipratropium/Albuterol Neb 3 ML IH PRN (17:04)
[2019-05-18 20:03] LABS: Bilirubin,Urine Negative (Negative); Blood,Urine Negative (Negative); Clarity,Urine Clear (Clear); Color,Urine Yellow (Yellow); Glucose,Urine (UA) Normal (Normal); Ketones,Urine Negative (Negative); Leukocyte Esterase,Urine Negative (Negative); Nitrite,Urine Negative (Negative); PH,Urine 6.5 pH Units (5.0-8.0); Protein,Urine Negative (Neg-Trace); Specific Gravity,Urine 1.015 (1.010-1.025); Urobilinogen,Urine Normal (Normal)
[2019-05-18 20:14] LABS: Adenovirus Not Detected (Not Detect); Bordetella Pertussis Not Detected (Not Detect); Chlamydophila pneumoniae Not Detected (Not Detect); Coronavirus 229E Not Detected (Not Detect); Coronavirus HKU1 Not Detected (Not Detect); Coronavirus NL63 Not Detected (Not Detect); Coronavirus OC43 Not Detected (Not Detect); Human Metapneumovirus Not Detected (Not Detect); Human Rhinovirus/Enterovirus DETECTED (Not Detect); Influenza A Subtype 2009 H1 Not Detected (Not Detect); Influenza A Untypeable Not Detected (Not Detect); Influenza B Not Detected (Not Detect); Mycoplasma pneumoniae Not Detected (Not Detect); Parainfluenza Virus 1 Not Detected (Not Detect); Parainfluenza Virus 2 Not Detected (Not Detect); Parainfluenza Virus 3 Not Detected (Not Detect); Parainfluenza Virus 4 Not Detected (Not Detect); Respiratory Syncytial Virus Not Detected (Not Detect)
[2019-05-18] MEDS: Apixaban 5 MG TABLET PO SCH (21:01)
[2019-05-18] MEDS: hydrOXYzine pamoate 25 MG CAPSULE PO SCH (21:01)
[2019-05-18] MEDS: Ipratropium/Albuterol Neb 3 ML IH SCH (22:47)
[2019-05-19 01:40] LABS: Basophils % 0.2 %; Eosinophils % 0.2 %; Hematocrit 37.4 % (37.5-50.1); Hemoglobin 12.6 g/dL (12.9-16.9); Immature Granulocytes % 0.2 % (0-4); Lymphocytes # 1.2 K/mcL (0.6-4.6); Lymphocytes % 12.2 %; Mean Corpuscular HGB Conc 33.7 g/dL (31.6-35.5); Mean Corpuscular Hemoglobin 33.2 pg (28.0-33.3); Mean Corpuscular Volume 98.4 fL (83.0-100.0); Mean Platelet Volume 9.9 fL (9.4-12.4); Monocytes # 1.3 K/mcL (0.0-1.3); Monocytes % 13.4 %; Neutrophils # 7.4 K/mcL (1.6-8.9); Platelet Count 134 K/mcL (140-400); Red Cell Distribution Width 12.3 % (11.5-14.5); Segmented Neutrophils % 73.8 %
[2019-05-19 02:02] LABS: BUN/Creatinine Ratio 21 (6-26); Blood Urea Nitrogen 22 mg/dL (8-23); Calcium 9.1 mg/dL (8.6-10.3); Carbon Dioxide 28 mEq/L (23-29); Chloride 102 mEq/L (98-107); Glucose 115 mg/dL (70-105); Osmolality,Calculated 288 (280-300); Sodium 137 mEq/L (136-145); eGFR For African Americans > 60 (> 60); eGFR For Non-African Americans > 60 (> 60)
[2019-05-19] MEDS: Ipratropium/Albuterol Neb 3 ML IH SCH ×4 (04:24→22:25)
--- NOTE | 2019-05-19 08:20 | Internal Med Progress Note ---
Hospitalist Progress Note - Encounter Date of Encounter: 05/19/19 Time of Encounter: 08:20 - Subjective Interval History: Patient seen and examined this morning at bedside. No acute overnight events. Denies new complaints. Breathing about the same. Denies any chest pain abdominal pain nausea vomiting or diarrhea. - Exam Vitals: Temp Pulse Resp BP Pulse Ox 98.4 F 63 16 137/87 93 05/19/19 07:01 05/19/19 07:01 05/19/19 07:01 05/19/19 07:01 05/19/19 07:01 Exam: Constitutional: Vitals as noted. Conversant. coughing, elderly frail Respiratory : No accessory muscle use, diffuse expiratory wheezing. Cardiovascular : RRR, +S1, +S2. no murmur, gallop, rubs. No chest wall tenderness GI/Abdominal : Soft, Non-tender, Non-distended, normal bowel sounds, no peritoneal signs. no orgenomegaly or mass appreciated. no hernia. Musculoskeletal: no deformity noted. 1+ edema b/l ankle. warm extremities, pulses palpable and symmetrical in UE/LE. no calf tenderness. Neurological: AO X3, CN II-XII grossly intact, grossly normal motor and sensory exam. Skin: No skin rash, lesions or ulcers noted. - Assessment and Plan (1) Community acquired pneumonia Current Visit: No Status: Acute (2) Acute exacerbation of chronic obstructive airways disease Current Visit: No Status: Acute (3) Afib Current Visit: Yes Status: Acute (4) DVT prophylaxis Current Visit: No Status: Acute (5) Elevated troponin Current Visit: No Status: Acute (6) CHF (congestive heart failure) Current Visit: No Status: Chronic (7) HTN (hypertension) Current Visit: No Status: Chronic (8) Tobacco abuse Current Visit: No Status: Chronic - Summary of Assessment and Plan Summary of Assessment and Plan: Assessment Acute Acute hypoxic respiratory failure Community acquired pneumonia, unclear organism enterovirus URI COPD exacerbation Elevated troponin Chronic Afib Diastolic and systolic CHF afib COPD Plan - multifocal infiltrate on CXR, possible CAP on underlying water viral URI. Continue patient on schedule duonebs, ceftraixone and azithromycin. Did not get steroids yesterday due to order error. We will start Solu-Medrol today. f/u blood and sputum cultures. - Respiratory infectious panel positive for enterovirus was likely precipitated COPD. Legionella and streptococcal antigen negative. - Troponin mildly elevated flat in velocity. Likely demand ischemia. Patient without any chest pain. EKG paced rhythm. Echocardiogram with EF 50%, mild pulmonary hypertension, normal wall motion, mild LV diastolic dysfunction. Awaiting records from recent C done at [facility] - Continue patient on home Eliquis and metoprolol - Resume patient's home Lasix. Patient without significant volume overload except baseline ankle edema. - Blood pressure stable. Continue home metoprolol Internal Medicine: Result - Labs CBC & Chem 7: 05/19/19 01:14 05/19/19 01:14 Labs: Short CBC 05/19/19 Range/Units 01:14 WBC 10.0 (4.3-11.1) K/mcL Hgb 12.6 L (12.9-16.9) g/dL Hct 37.4 L (37.5-50.1) % Plt Count 134 L (140-400) K/mcL Neutrophils # 7.4 (1.6-8.9) K/mcL BMP 05/19/19 01:14 Sodium 137 Potassium 3.0 L Chloride 102 Carbon Dioxide 28 BUN 22 Creatinine 1.05 Glucose 115 H Calcium 9.1 Cardiac Enzymes 05/18/19 05/18/19 Range/Units 17:24 20:49 Troponin I 0.05 H* 0.05 H* (< 0.04) ng/mL Urine 05/18/19 Range/Units 19:56 Urine Color Yellow (Yellow) Urine Clarity Clear (Clear) Urine pH 6.5 (5.0-8.0) pH Units Ur Specific [place] 1.015 (1.010-1.025) Urine Protein Negative (Neg-Trace) mg/dL Urine Glucose (UA) Normal (Normal) mg/dL Consult Discharge Plan - Plan Referrals: NONE,PCP [Primary Care Provider] - (1) Community acquired pneumonia Qualifiers: Lung location: unspecified part of lung (3) Afib Qualifiers: Atrial fibrillation type: chronic Qualified Code(s): I48.2 - Chronic atrial fibrillation (6) CHF (congestive heart failure) Qualifiers: Heart failure type: combined systolic and diastolic Heart failure chronicity: unspecified Qualified Code(s): I50.40 - Unspecified combined systolic (congestive) and diastolic (congestive) heart failure (7) HTN (hypertension) Qualifiers: Hypertension type: essential hypertension Qualified Code(s): I10 - Essential (primary) hypertension
[2019-05-19] MEDS: risperiDONE 1 MG TABLET PO SCH (08:29)
[2019-05-19] MEDS: Apixaban 5 MG TABLET PO SCH ×2 (08:29→20:38)
[2019-05-19] MEDS ORDERED: Azithromycin 500 MG in D5% in Water 250 ML IVPB ONE (09:00)
[2019-05-19] MEDS ORDERED: cefTRIAXone 1,000 MG in Water for inj. (sterile) 10 ML IVP ONE (09:00)
[2019-05-19] MEDS ORDERED: Perflutren Lipid Microsphere 1.3 ML in 0.9 % Sodium Chloride 8.7 ML IVP ONE (10:11)
[2019-05-19] MEDS: methylPREDNISolone 125 MG/2 ML VIAL IVP SCH ×2 (12:46→20:39)
[2019-05-19] MEDS: Furosemide 40 MG/4 ML VIAL IVP SCH (15:48)
[2019-05-19] MEDS ORDERED: methylPREDNISolone 125 MG/2 ML VIAL IVP SCH (19:00)
[2019-05-19] MEDS: hydrOXYzine pamoate 25 MG CAPSULE PO SCH (20:39)
[2019-05-19] MEDS: ALPRAZolam 1 MG TABLET PO SCH (22:43)
[2019-05-20 03:40] LABS: BUN/Creatinine Ratio 24 (6-26); Blood Urea Nitrogen 22 mg/dL (8-23); Calcium 9.2 mg/dL (8.6-10.3); Carbon Dioxide 26 mEq/L (23-29); Chloride 97 mEq/L (98-107); Glucose 177 mg/dL (70-105); Osmolality,Calculated 282 (280-300); Potassium 2.9 mEq/L (3.5-5.1); Sodium 132 mEq/L (136-145); Troponin I 0.05 ng/mL (< 0.04); eGFR For African Americans > 60 (> 60); eGFR For Non-African Americans > 60 (> 60)
[2019-05-20] MEDS: Ipratropium/Albuterol Neb 3 ML IH SCH ×4 (03:42→22:25)
--- NOTE | 2019-05-20 08:50 | Internal Med Progress Note ---
Hospitalist Progress Note - Encounter Date of Encounter: 05/20/19 Time of Encounter: 08:50 - Subjective Interval History: Patient seen and examined this morning at bedside. No acute overnight events. Breathing improved. Denies any chest pain nausea vomiting or diarrhea. Denies any abdominal pain or urinary difficulties. - Exam Vitals: Temp Pulse Resp BP Pulse Ox 98 F 62 18 126/78 93 05/20/19 07:11 05/20/19 07:11 05/20/19 07:11 05/20/19 07:11 05/20/19 07:11 Exam: Constitutional: Vitals as noted. Conversant. elderly frail Respiratory : No accessory muscle use, diffuse expiratory wheezing. Cardiovascular : RRR, +S1, +S2. no murmur, gallop, rubs. No chest wall tenderness GI/Abdominal : Soft, Non-tender, Non-distended, no peritoneal signs Musculoskeletal: no deformity noted. 1+ edema b/l ankle. warm extremities, pulses palpable and symmetrical in UE/LE. no calf tenderness. Neurological: AO X3, CN II-XII grossly intact, grossly normal motor and sensory exam. Skin: No skin rash, lesions or ulcers noted. - Assessment and Plan (1) Community acquired pneumonia Current Visit: No Status: Acute (2) Acute exacerbation of chronic obstructive airways disease Current Visit: No Status: Acute (3) Afib Current Visit: Yes Status: Acute (4) DVT prophylaxis Current Visit: No Status: Acute (5) Elevated troponin Current Visit: No Status: Acute (6) CHF (congestive heart failure) Current Visit: No Status: Chronic (7) HTN (hypertension) Current Visit: No Status: Chronic (8) Tobacco abuse Current Visit: No Status: Chronic - Summary of Assessment and Plan Summary of Assessment and Plan: Assessment Acute Acute hypoxic respiratory failure Community acquired pneumonia, unclear organism enterovirus URI COPD exacerbation Elevated troponin Chronic Afib Diastolic and systolic CHF afib COPD Plan - multifocal infiltrate on CXR, possible CAP on underlying viral URI. Continue patient on schedule duonebs, ceftraixone and azithromycin. c/w Solu-Medrol. f/u blood and sputum cultures. - Respiratory infectious panel positive for enterovirus was likely precipitated COPD exacerbation. Legionella and streptococcal antigen negative. - Troponin mildly elevated flat in velocity. Likely demand ischemia. Patient without any chest pain. EKG paced rhythm. Echocardiogram with EF 50%, mild pulmonary hypertension, normal wall motion, mild LV diastolic dysfunction. [facility] on 09/02/18 without significant CAD. Monitor for now. Will need outpatient cardiology evaluation. Start aspirin and statin. c/w metoprolol. Home imdur on hold. resume lisinopril tomorrow. - Continue patient on home Eliquis and metoprolol - Resume patient's home Lasix. Patient without significant volume overload except baseline ankle edema, however will give one more dose of lasix today - Blood pressure stable. Continue home metoprolol. Hold imdur. resume lisinopril tomorrow. Internal Medicine: Result - Labs CBC & Chem 7: 05/19/19 01:14 05/20/19 02:11 Labs: BMP 05/20/19 02:11 Sodium 132 L Potassium 2.9 L Chloride 97 L Carbon Dioxide 26 BUN 22 Creatinine 0.92 Glucose 177 H Calcium 9.2 Cardiac Enzymes 05/20/19 Range/Units 02:11 Troponin I 0.05 H* (< 0.04) ng/mL - Impressions Impressions Echocardiogram 05/19/19 09:00 Impressions: LVEF 50%. Normal LV chamber size and function. Basal sigmoid septum. Mild left ventricular diastolic dysfunction. Atypical septal motion consistent with paced rhythm. Right ventricle was not well visualized. Grossly, it is normal in function. Mild tricuspid regurgitation. Borderline mild pulmonary hypertension. Estimated RVSP is 36 mmHg. A device lead was visualized in the right atrium and right ventricle. Left Ventricular Wall Motion: Rest Echo Findings All wall segments showed normal motion. Findings: Study Quality * Technically sub-optimal due to poor echocardiographic windows. ECG Findings * Paced rhythm. Left Ventricle * LVEF 50%. * Normal LV chamber size and function. * Basal sigmoid septum. * Mild left ventricular diastolic dysfunction. * Atypical septal motion consistent with paced rhythm. Right Ventricle * Right ventricle was not well visualized. Grossly, it is normal in function. Left Atrium * Moderately dilated left atrium. Right Atrium * Mildly dilated right atrium. Interatrial Septum * Interatrial septum not well evaluated. Aortic Valve * Aortic valve not well visualized. * No aortic regurgitation. * No aortic stenosis. Mitral Valve * Normal mitral valve structure and function. * No mitral regurgitation. * No mitral stenosis. Tricuspid Valve * Normal tricuspid valve structure. * Mild tricuspid regurgitation. * Borderline mild pulmonary hypertension. * Estimated RVSP is 36 mmHg. * Estimated RA pressure is 5 mmHg. Pulmonic Valve * Pulmonic valve not well visualized. Aorta * Normally sized aortic root. Pericardium * There is a trivial pericardial effusion present. IVC * Normal IVC dimensions. Response to Valsalva less than 50%. Device lead * A device lead was visualized in the right atrium and right ventricle. Pulmonary Artery * Pulmonary artery not well visualized. Consult Discharge Plan - Plan Referrals: NONE,PCP [Primary Care Provider] - (1) Community acquired pneumonia Qualifiers: Lung location: unspecified part of lung (3) Afib Qualifiers: Atrial fibrillation type: chronic Qualified Code(s): I48.2 - Chronic atrial fibrillation (6) CHF (congestive heart failure) Qualifiers: Heart failure type: combined systolic and diastolic Heart failure chronicity: unspecified Qualified Code(s): I50.40 - Unspecified combined systolic (congestive) and diastolic (congestive) heart failure (7) HTN (hypertension) Qualifiers: Hypertension type: essential hypertension Qualified Code(s): I10 - Essential (primary) hypertension
[2019-05-20] MEDS: Apixaban 5 MG TABLET PO SCH ×2 (09:58→20:11)
[2019-05-20] MEDS: ALPRAZolam 1 MG TABLET PO SCH ×3 (09:58→20:12)
[2019-05-20] MEDS: methylPREDNISolone 125 MG/2 ML VIAL IVP SCH ×2 (09:59→20:12)
[2019-05-20] MEDS: risperiDONE 1 MG TABLET PO SCH (09:59)
[2019-05-20] MEDS: Potassium Chloride Elixir 20 MEQ/15 ML UDC PO SCH ×2 (09:59→13:23)
[2019-05-20] MEDS: Furosemide 40 MG/4 ML VIAL IVP SCH (09:59)
[2019-05-20] MEDS: cefTRIAXone 1,000 MG in Water for inj. (sterile) 10 ML IVP SCH (10:00)
[2019-05-20] MEDS: Azithromycin 500 MG in D5% in Water 250 ML IVPB SCH (16:00)
[2019-05-20] MEDS ORDERED: Furosemide 20 MG/2 ML VIAL IVP ONE (16:00)
[2019-05-20] MEDS: hydrOXYzine pamoate 25 MG CAPSULE PO SCH (20:11)
[2019-05-21] MEDS: Ipratropium/Albuterol Neb 3 ML IH SCH ×4 (03:40→21:11)
[2019-05-21 06:43] LABS: BUN/Creatinine Ratio 32 (6-26); Blood Urea Nitrogen 32 mg/dL (8-23); Calcium 9.5 mg/dL (8.6-10.3); Carbon Dioxide 29 mEq/L (23-29); Chloride 96 mEq/L (98-107); Glucose 175 mg/dL (70-105); Osmolality,Calculated 289 (280-300); Potassium 4.3 mEq/L (3.5-5.1); Sodium 134 mEq/L (136-145); eGFR For African Americans > 60 (> 60); eGFR For Non-African Americans > 60 (> 60)
--- NOTE | 2019-05-21 08:04 | Internal Med Progress Note ---
Hospitalist Progress Note - Encounter Date of Encounter: 05/21/19 Time of Encounter: 08:04 - Subjective Interval History: Patient seen and examined this morning at bedside. No acute overnight events. Patient denies any chest pain. Breathing gradually improving. Denies any fever or chills nausea vomiting or diarrhea. - Exam Vitals: Temp Pulse Resp BP Pulse Ox 97.5 F L 62 20 115/75 96 05/21/19 07:16 05/21/19 07:16 05/21/19 07:16 05/21/19 07:16 05/21/19 07:16 Exam: Constitutional: Vitals as noted. Conversant. elderly frail Respiratory : No accessory muscle use, diffuse expiratory wheezing. Cardiovascular : RRR, +S1, +S2. no murmur, gallop, rubs. No chest wall tenderness GI/Abdominal : Soft, Non-tender, Non-distended, no peritoneal signs Musculoskeletal: no deformity noted. 1+ edema b/l ankle. warm extremities, pulses palpable and symmetrical in UE/LE. no calf tenderness. Neurological: AO X3, CN II-XII grossly intact, grossly normal motor and sensory exam. Skin: No skin rash, lesions or ulcers noted. - Assessment and Plan (1) Community acquired pneumonia Current Visit: No Status: Acute (2) Acute exacerbation of chronic obstructive airways disease Current Visit: No Status: Acute (3) Afib Current Visit: Yes Status: Acute (4) DVT prophylaxis Current Visit: No Status: Acute (5) Elevated troponin Current Visit: No Status: Acute (6) CHF (congestive heart failure) Current Visit: No Status: Chronic (7) HTN (hypertension) Current Visit: No Status: Chronic (8) Tobacco abuse Current Visit: No Status: Chronic - Summary of Assessment and Plan Summary of Assessment and Plan: Assessment Acute Acute hypoxic respiratory failure Community acquired pneumonia, unclear organism enterovirus URI COPD exacerbation Elevated troponin Chronic Afib Diastolic and systolic CHF afib COPD Plan - multifocal infiltrate on CXR, possible CAP on underlying viral URI. Continue patient on schedule duonebs, ceftraixone and azithromycin. Change solumedrol to daily. blood cultures NGTD. sputum not good sample. Legionella and streptococcal antigen negative. - Respiratory infectious panel positive for enterovirus was likely precipitated COPD exacerbation. continue bronchodilators. - Troponin mildly elevated flat in velocity. Likely demand ischemia. Patient without any chest pain. EKG paced rhythm. Echocardiogram with EF 50% (unchanged), mild pulmonary hypertension, normal wall motion, mild LV diastolic dysfunction. [facility] on 09/02/18 without significant CAD. Monitor for now. Will need outpatient cardiology followup. c/w aspirin and statin. c/w metoprolol. Home imdur on hold. resume lisinopril tomorrow. May need adjustment of BP medication on DC. - c/w patient on home Eliquis and metoprolol for aftib - Resume patient's home Lasix. - Patient qualified for home oxygen. Will downtitrate oxygen. Patient likely will be ready to be discharged tomorrow as today is still wheezing but air entry much improved and patient symptomatically better. Will have Nurse walk and see how he does later today. - Time Spent with Patient Total time spent is greater than 50% in coordination of care (as documented) at patient's floor/unit and/or counseling patient: Internal Medicine: Result - Labs CBC & Chem 7: 05/19/19 01:14 05/21/19 01:47 Labs: BMP 05/21/19 01:47 Sodium 134 L Potassium 4.3 D Chloride 96 L Carbon Dioxide 29 BUN 32 H Creatinine 0.99 Glucose 175 H Calcium 9.5 Consult Discharge Plan - Plan Referrals: NONE,PCP [Primary Care Provider] - (1) Community acquired pneumonia Qualifiers: Lung location: unspecified part of lung (3) Afib Qualifiers: Atrial fibrillation type: chronic Qualified Code(s): I48.2 - Chronic atrial fibrillation (6) CHF (congestive heart failure) Qualifiers: Heart failure type: combined systolic and diastolic Heart failure chronicity: unspecified Qualified Code(s): I50.40 - Unspecified combined systolic (congestive) and diastolic (congestive) heart failure (7) HTN (hypertension) Qualifiers: Hypertension type: essential hypertension Qualified Code(s): I10 - Essential (primary) hypertension
[2019-05-21] MEDS ORDERED: CefTRIAXone 1,000 MG VIAL ONE (09:57)
[2019-05-21] MEDS: cefTRIAXone 1,000 MG in Water for inj. (sterile) 10 ML IVP SCH (10:22)
[2019-05-21] MEDS: Aspirin Enteric Coated 81 MG Tablet PO SCH (10:23)
[2019-05-21] MEDS: Apixaban 5 MG TABLET PO SCH ×2 (10:23→21:15)
[2019-05-21] MEDS: Furosemide 40 MG/4 ML VIAL IVP SCH (10:23)
[2019-05-21] MEDS: methylPREDNISolone 125 MG/2 ML VIAL IVP SCH (10:23)
[2019-05-21] MEDS: risperiDONE 1 MG TABLET PO SCH (10:23)
[2019-05-21] MEDS: ALPRAZolam 1 MG TABLET PO SCH ×3 (10:23→21:15)
[2019-05-21] MEDS: Azithromycin 500 MG in D5% in Water 250 ML IVPB SCH (11:20)
[2019-05-21] MEDS ORDERED: Furosemide 20 MG TABLET PO SCH (12:45)
[2019-05-21] MEDS: hydrOXYzine pamoate 25 MG CAPSULE PO SCH (21:15)
[2019-05-22] MEDS: Ipratropium/Albuterol Neb 3 ML IH SCH ×2 (03:16→10:24)
[2019-05-22 06:54] VITALS: BP 110/71
[2019-05-22] MEDS: cefTRIAXone 1,000 MG in Water for inj. (sterile) 10 ML IVP SCH (08:29)
[2019-05-22] MEDS: Apixaban 5 MG TABLET PO SCH (08:30)
[2019-05-22] MEDS: Aspirin Enteric Coated 81 MG Tablet PO SCH (08:30)
[2019-05-22] MEDS: ALPRAZolam 1 MG TABLET PO SCH (08:30)
[2019-05-22] MEDS: risperiDONE 1 MG TABLET PO SCH (08:30)
[2019-05-22] MEDS ORDERED: Furosemide 20 MG TABLET PO SCH (09:00)
[2019-05-22] MEDS ORDERED: methylPREDNISolone 125 MG/2 ML VIAL IVP SCH (09:00)
--- NOTE | 2019-05-22 09:34 | Discharge Summary ---
- NOTES TO OUTPATIENT PROVIDER Notes to Outpatient Provider: Follow-up with pulmonology and cardiology as outpatient Orders not resulted at time of discharge: Pending orders 05/18/19 17:24 Culture,Blood [BC] Routine Date of Encounter: 05/22/19 Time of Encounter: 07:45 - Discharge Diagnosis (1) Community acquired pneumonia Priority: Primary Status: Acute Qualifiers: Laterality: unspecified laterality Qualified Code(s): J18.9 - Pneumonia, unspecified organism (2) Acute exacerbation of chronic obstructive airways disease Priority: Secondary Status: Acute (3) Afib Priority: Secondary Status: Acute Qualifiers: Atrial fibrillation type: chronic Qualified Code(s): I48.2 - Chronic atrial fibrillation (4) Elevated troponin Priority: Secondary Status: Acute (5) CHF (congestive heart failure) Priority: Secondary Status: Chronic Qualifiers: Heart failure type: combined systolic and diastolic Heart failure chronicity: unspecified Qualified Code(s): I50.40 - Unspecified combined systolic (congestive) and diastolic (congestive) heart failure (6) HTN (hypertension) Priority: Secondary Status: Chronic Qualifiers: Hypertension type: essential hypertension Qualified Code(s): I10 - Essential (primary) hypertension (7) Tobacco abuse Priority: Secondary Status: Chronic (8) DVT prophylaxis Priority: Secondary Status: Acute Hospital course: Mr. Stafford is a 74 year old male with history of atrial fibrillation on Eliquis, systolic/diastolic heart failure s/p AICD, COPD, ?CAD, who was admitted for respiratory failure secondary to pneumonia complicated by acute exacerbation of COPD. Also had minimally elevated trop of 0.[address] elevations on EKG. It remained at 0.05 x 3 and echocardiogram showed EF of 50% (unchanged from 06/2018). Chest x-ray showed multifocal pneumonia and respira tory viral panel was positive for rhinovirus. Patient clinically improved with IV Rocephin/azithromycin, steroid, and bronchodilators. He qualifed for 2L of O2 via [place] continously prior to d/c and he will also be sent home with a total of 7 days of abx and steroid taper. Low-dose aspirin and statin were also started in view of possible CAD. He was advised to follow with pulmonology and cardiology as outpatient. Discharge discussed with: patient, nurse - Time Spent with Patient Total time spent providing and/or coordinating discharge services: 32 mins - Discharge Medications Prescriptions: New Aspirin Enteric Coated [Aspirin EC] 81 mg PO DAILY #30 tablet. levoFLOXacin [Levaquin] 750 mg PO DAILY #3 tablet Atorvastatin [Lipitor] 40 mg PO HS #30 tablet predniSONE [PredniSONE] 40 mg PO DAILY #5 tablet Continued Apixaban [Eliquis] 5 mg PO BID Furosemide [Lasix] 20 mg PO Q48H Isosorbide DInitrate [Isosorbide Dinitrate] 30 mg PO DAILY Metoprolol Tartrate 50 mg PO BID Loratadine [Claritin] 10 mg PO DAILY Lisinopril [Zestril] 5 mg PO DAILY ALPRAZolam [Xanax 1 MG Tablet] 1 mg PO QID Levalbuterol Neb [Xopenex Neb] 1.25 mg IH Q8H hydrOXYzine HCl [Hydroxyzine HCl] 50 mg PO HS PRN PRN Reason: Sleep risperiDONE [Risperdal] 1 mg PO DAILY Pantoprazole Sodium [Protonix] 40 mg PO DAILY Potassium Chloride [K-Tab ER] 20 meq PO Q48H Home Medications: Apixaban [Eliquis] 5 mg PO BID 02/02/18 [History] Furosemide [Lasix] 20 mg PO Q48H 02/02/18 [History] Pantoprazole Sodium [Protonix] 40 mg PO DAILY 05/18/19 [History] Potassium Chloride [K-Tab ER] 20 meq PO Q48H 05/18/19 [History] hydrOXYzine HCl [Hydroxyzine HCl] 50 mg PO HS PRN 05/18/19 [History] risperiDONE [Risperdal] 1 mg PO DAILY 05/18/19 [History] ALPRAZolam [Xanax 1 MG Tablet] 1 mg PO QID 05/19/19 [History] Isosorbide DInitrate [Isosorbide Dinitrate] 30 mg PO DAILY 05/19/19 [History] Levalbuterol Neb [Xopenex Neb] 1.25 mg IH Q8H 05/19/19 [History] Lisinopril [Zestril] 5 mg PO DAILY 05/19/19 [History] Loratadine [Claritin] 10 mg PO DAILY 05/19/19 [History] Metoprolol Tartrate 50 mg PO BID 05/19/19 [History] Aspirin Enteric Coated [Aspirin EC] 81 mg PO DAILY #30 tablet. 05/22/19 [Rx] Atorvastatin [Lipitor] 40 mg PO HS #30 tablet 05/22/19 [Rx] levoFLOXacin [Levaquin] 750 mg PO DAILY #3 tablet 05/22/19 [Rx] predniSONE [PredniSONE] 40 mg PO DAILY #5 tablet 05/22/19 [Rx] Allergies/Adverse Reactions: Allergy/AdvReac Type Severity Reaction Status Date / Time rivaroxaban [From Xarelto] AdvReac See Verified 07/11/18 18:29 Comments Date of admission: 05/20/19 10:18 Primary care physician: PCP NONE - Constitutional Vitals: Temp Pulse Resp BP Pulse Ox 97.5 F L 61 18 110/71 98 05/22/19 06:53 05/22/19 06:53 05/22/19 06:53 05/22/19 06:53 05/22/19 06:53 Exam: Constitutional: Vitals as noted. Not in distress Respiratory : Minimal bilateral expiratory wheezing Cardiovascular : RRR, +S1, +S2. GI/Abdominal : Soft, Non-tender, Non-distended Musculoskeletal: no deformity noted. 1+ edema b/l ankle. warm extremities, pulses palpable and symmetrical in UE/LE. no calf tenderness. Neurological: non-focal - Patient Status Disposition: Home, Self-Care Condition: Fair Functional capacity at discharge: independent ambulation Overall status at discharge: patient is progressing back to baseline - Discharge Instructions Instructions: Chronic Obstructive Pulmonary Disease (DC), Atrial Fibrillation (DC), Pneumonia (DC), Heart Failure (DC), Chronic Hypertension (DC) Follow Up With: NONE,PCP [Primary Care Provider] - Abner Méndez MD [Partnered Physician] - Myra Arreola MD [Partnered Physician] - - Diet and Activity Activity: resume usual activities as tolerated Diet: regular diet
[2019-05-22] MEDS: Azithromycin 500 MG in D5% in Water 250 ML IVPB SCH (12:08)
== END 2019-05-22 14:01 | disposition home or self-care (01) | DRG 193 ==
LOC: 2NENU → SUATTDRO 15:51
PROVIDERS: ADMIT Internal Medicine; ATTEND Internal Medicine

== ENCOUNTER 2020-01-01 15:20 | Inpatient (IN) ==
[2020-01-01 16:32] LABS: Basophils % 0.1 %; Eosinophils # 0.1 K/mcL (0.0-0.6); Eosinophils % 0.9 %; Hematocrit 41.4 % (37.5-50.1); Immature Granulocytes % 0.3 % (0-4); Lymphocytes # 1.9 K/mcL (0.6-4.6); Lymphocytes % 20.9 %; Mean Corpuscular HGB Conc 33.8 g/dL (31.6-35.5); Mean Corpuscular Hemoglobin 32.4 pg (28.0-33.3); Mean Corpuscular Volume 95.8 fL (83.0-100.0); Mean Platelet Volume 9.7 fL (9.4-12.4); Monocytes % 10.6 %; Neutrophils # 6.1 K/mcL (1.6-8.9); Platelet Count 171 K/mcL (140-400); Red Blood Count 4.32 M/mcL (4.19-5.50); Red Cell Distribution Width 12.5 % (11.5-14.5); Segmented Neutrophils % 67.2 %; White Blood Count 9.1 K/mcL (4.3-11.1)
[2020-01-01 16:39] LABS: INR 1.4
[2020-01-01 16:41] LABS: Activated Partial Thrombo Time 32.4 Seconds (26.0-36.0)
[2020-01-01 16:57] LABS: Alanine Aminotransferase 27 Units/L (7-52); Albumin 3.8 g/dL (3.5-5.7); Albumin/Globulin Ratio 1.6 (1.1-2.2); Alkaline Phosphatase 64 Units/L (34-104); Aspartate Amino Transferase 20 Units/L (13-39); BUN/Creatinine Ratio 21 (6-26); Bilirubin,Direct 0.2 mg/dL (0.0-0.2); Bilirubin,Indirect 0.7 mg/dL (0.0-1.0); Bilirubin,Total 0.9 mg/dL (0.3-1.0); Blood Urea Nitrogen 25 mg/dL (8-23); C-Reactive Protein 22 mg/L (Less than 10); Calcium 9.4 mg/dL (8.6-10.3); Carbon Dioxide 27 mEq/L (23-29); Chloride 98 mEq/L (98-107); Globulin 2.4 g/dL (2.4-3.5); Glucose 124 mg/dL (70-105); Lactate Dehydrogenase 129 Units/L (140-271); Lipase 9 Units/L (11-82); Magnesium 1.9 mg/dL (1.6-2.6); Osmolality,Calculated 282 (280-300); Potassium 3.3 mEq/L (3.5-5.1); Sodium 133 mEq/L (136-145); Total Protein 6.2 g/dL (6.4-8.9); Troponin I 0.04 ng/mL (< 0.04); eGFR For African Americans > 60 (> 60); eGFR For Non-African Americans > 60 (> 60)
[2020-01-01 17:23] LABS: Ferritin 375 ng/mL (20-250)
[2020-01-01 17:53] LABS: Bilirubin,Urine Negative (Negative); Blood,Urine Negative (Negative); Clarity,Urine Clear (Clear); Color,Urine Yellow (Yellow); Glucose,Urine (UA) Normal (Normal); Ketones,Urine Negative (Negative); Leukocyte Esterase,Urine Negative (Negative); Nitrite,Urine Negative (Negative); PH,Urine 6.5 pH Units (5.0-8.0); Protein,Urine Negative (Neg-Trace); Specific Gravity,Urine 1.016 (1.010-1.025); Urobilinogen,Urine Normal (Normal)
[2020-01-01] MEDS ORDERED: Acetaminophen 325 MG TABLET PO PRN (20:04)
[2020-01-01] MEDS ORDERED: Naloxone 0.4 MG/ML INJ IVP PRN (20:04)
[2020-01-01] MEDS ORDERED: Ondansetron 4 MG/2 ML VIAL IVP PRN (20:04)
[2020-01-01] MEDS ORDERED: *HR* HYDROcodone/Acet 5/325 mg TABLET PO PRN (20:04)
[2020-01-01] MEDS ORDERED: hydrOXYzine pamoate 25 MG CAPSULE PO PRN (20:08)
[2020-01-01] MEDS ORDERED: Heparin 25,000 UNIT/250 ML D5W 25,000 UNIT/250 ML IV.SOLN IVC SCH (20:30)
[2020-01-01] MEDS: Azithromycin 500 MG in 0.9 % Sodium Chloride 250 ML IVPB SCH (21:06)
[2020-01-01] MEDS: MethylPREDNISolone 40 MG/ML VIAL IVP SCH (21:06)
[2020-01-01] MEDS: Apixaban 5 MG TABLET PO SCH (21:06)
[2020-01-01] MEDS: Topiramate 25 MG TABLET PO SCH (21:06)
[2020-01-01] MEDS: ALPRAZolam 1 MG TABLET PO SCH (21:07)
[2020-01-01] MEDS ORDERED: 0.9 % Sodium Chloride 1,000 ML IVC SCH (21:45)
[2020-01-02 06:04] LABS: Hematocrit 38.8 % (37.5-50.1); Hemoglobin 13.4 g/dL (12.9-16.9); Immature Granulocytes % 0.2 % (0-4); Lymphocytes # 0.7 K/mcL (0.6-4.6); Lymphocytes % 14.8 %; Mean Corpuscular HGB Conc 34.5 g/dL (31.6-35.5); Mean Corpuscular Hemoglobin 32.6 pg (28.0-33.3); Mean Corpuscular Volume 94.4 fL (83.0-100.0); Mean Platelet Volume 9.9 fL (9.4-12.4); Monocytes # 0.1 K/mcL (0.0-1.3); Monocytes % 2.8 %; Platelet Count 163 K/mcL (140-400); Red Blood Count 4.11 M/mcL (4.19-5.50); Red Cell Distribution Width 12.4 % (11.5-14.5); Segmented Neutrophils % 82.2 %; White Blood Count 4.9 K/mcL (4.3-11.1)
[2020-01-02 06:30] LABS: BUN/Creatinine Ratio 22 (6-26); Blood Urea Nitrogen 21 mg/dL (8-23); Calcium 9.1 mg/dL (8.6-10.3); Carbon Dioxide 23 mEq/L (23-29); Chloride 104 mEq/L (98-107); Glucose 146 mg/dL (70-105); Magnesium 1.9 mg/dL (1.6-2.6); Osmolality,Calculated 284 (280-300); Potassium 4.2 mEq/L (3.5-5.1); Sodium 134 mEq/L (136-145); eGFR For African Americans > 60 (> 60); eGFR For Non-African Americans > 60 (> 60)
[2020-01-02] MEDS: Tiotropium 18 MCG inhalation IH SCH (07:14)
[2020-01-02] MEDS: MethylPREDNISolone 40 MG/ML VIAL IVP SCH ×3 (08:36→16:50)
[2020-01-02] MEDS: Apixaban 5 MG TABLET PO SCH ×2 (08:36→19:55)
[2020-01-02] MEDS: risperiDONE 1 MG TABLET PO SCH (08:36)
[2020-01-02] MEDS: Aspirin Enteric Coated 81 MG Tablet PO SCH (08:36)
[2020-01-02] MEDS: ALPRAZolam 1 MG TABLET PO SCH ×4 (08:36→19:56)
[2020-01-02] MEDS: Topiramate 25 MG TABLET PO SCH ×2 (08:36→19:56)
[2020-01-02] MEDS ORDERED: Furosemide 20 MG TABLET PO SCH (09:00)
[2020-01-02] MEDS: Budesonide/Formoterol 160/4.5 1 PUFF INH IH SCH ×2 (15:40→20:19)
[2020-01-02] MEDS: Azithromycin 500 MG in 0.9 % Sodium Chloride 250 ML IVPB SCH (19:56)
[2020-01-03] MEDS: MethylPREDNISolone 40 MG/ML VIAL IVP SCH ×3 (00:31→17:18)
[2020-01-03 03:10] LABS: Hematocrit 36.2 % (37.5-50.1); Hemoglobin 12.3 g/dL (12.9-16.9); Mean Corpuscular Hemoglobin 32.5 pg (28.0-33.3); Mean Corpuscular Volume 95.5 fL (83.0-100.0); Platelet Count 164 K/mcL (140-400); Red Blood Count 3.79 M/mcL (4.19-5.50); Red Cell Distribution Width 12.4 % (11.5-14.5)
[2020-01-03 03:32] LABS: BUN/Creatinine Ratio 29 (6-26); Blood Urea Nitrogen 26 mg/dL (8-23); Calcium 8.8 mg/dL (8.6-10.3); Carbon Dioxide 24 mEq/L (23-29); Chloride 105 mEq/L (98-107); Glucose 124 mg/dL (70-105); Osmolality,Calculated 284 (280-300); Potassium 4.1 mEq/L (3.5-5.1); Sodium 134 mEq/L (136-145); eGFR For African Americans > 60 (> 60); eGFR For Non-African Americans > 60 (> 60)
[2020-01-03] MEDS: Ipratropium/Albuterol Neb 3 ML IH SCH ×5 (08:30→23:23)
[2020-01-03] MEDS: Apixaban 5 MG TABLET PO SCH ×2 (08:56→20:47)
[2020-01-03] MEDS: ALPRAZolam 1 MG TABLET PO SCH ×4 (08:57→20:47)
[2020-01-03] MEDS: Aspirin Enteric Coated 81 MG Tablet PO SCH (08:57)
[2020-01-03] MEDS: Topiramate 25 MG TABLET PO SCH ×2 (08:57→20:47)
[2020-01-03] MEDS: risperiDONE 1 MG TABLET PO SCH (08:57)
[2020-01-03] MEDS: Azithromycin 250 MG TABLET PO SCH (20:47)
[2020-01-04] MEDS: Ipratropium/Albuterol Neb 3 ML IH SCH ×6 (03:48→23:26)
[2020-01-04] MEDS: MethylPREDNISolone 40 MG/ML VIAL IVP SCH (05:33)
[2020-01-04] MEDS: Tiotropium 18 MCG inhalation IH SCH (06:39)
[2020-01-04] MEDS: ALPRAZolam 1 MG TABLET PO SCH ×4 (08:20→20:01)
[2020-01-04] MEDS: Apixaban 5 MG TABLET PO SCH ×2 (08:21→20:00)
[2020-01-04] MEDS: Topiramate 25 MG TABLET PO SCH ×2 (08:21→20:01)
[2020-01-04] MEDS: risperiDONE 1 MG TABLET PO SCH (08:21)
[2020-01-04] MEDS: Aspirin Enteric Coated 81 MG Tablet PO SCH (08:21)
[2020-01-04] MEDS: Furosemide 20 MG TABLET PO SCH (09:34)
[2020-01-04] MEDS: Azithromycin 250 MG TABLET PO SCH (20:01)
[2020-01-05] MEDS: Ipratropium/Albuterol Neb 3 ML IH SCH ×6 (03:11→23:29)
[2020-01-05] MEDS: ALPRAZolam 1 MG TABLET PO SCH ×4 (08:18→19:28)
[2020-01-05] MEDS: Topiramate 25 MG TABLET PO SCH ×2 (08:18→19:28)
[2020-01-05] MEDS: Aspirin Enteric Coated 81 MG Tablet PO SCH (08:18)
[2020-01-05] MEDS: Apixaban 5 MG TABLET PO SCH ×2 (08:18→19:28)
[2020-01-05] MEDS: risperiDONE 1 MG TABLET PO SCH (08:19)
[2020-01-05] MEDS: Furosemide 20 MG TABLET PO SCH (08:19)
[2020-01-05] MEDS: predniSONE 20 MG TABLET PO SCH (08:19)
[2020-01-05] MEDS: Azithromycin 250 MG TABLET PO SCH (19:28)
[2020-01-06] MEDS: Ipratropium/Albuterol Neb 3 ML IH SCH ×3 (03:21→11:50)
[2020-01-06 07:16] VITALS: BP 131/75
[2020-01-06] MEDS: ALPRAZolam 1 MG TABLET PO SCH (08:46)
[2020-01-06] MEDS: Apixaban 5 MG TABLET PO SCH (08:46)
[2020-01-06] MEDS: predniSONE 20 MG TABLET PO SCH (08:46)
[2020-01-06] MEDS: Furosemide 20 MG TABLET PO SCH (08:46)
[2020-01-06] MEDS: risperiDONE 1 MG TABLET PO SCH (08:47)
[2020-01-06] MEDS: Aspirin Enteric Coated 81 MG Tablet PO SCH (08:47)
[2020-01-06] MEDS: Topiramate 25 MG TABLET PO SCH (08:47)
== END 2020-01-06 11:52 | DRG 190 ==
LOC: EMEROOARM 15:20 → 2NENU 15:20 → 3BNU 01-02 23:58 → SUATTDRO 01-03 10:09
PROVIDERS: ADMIT Internal Medicine; ATTEND Internal Medicine